=== PATIENT | male | born 1990 | race Caucasian/White ===

== ENCOUNTER 2016-11-30 09:11 | Day surgery (SDC) | payer OTHER ==
[2016-11-29 10:45] VITALS: BMI 32.3
[~2016-11-30 09:11] MED LIST: LACTATED RINGERS 1,000 ML IV SCH
[2016-11-30] MEDS ORDERED: LACTATED RINGERS 1,000 ML IV ONE (10:09)
[2016-11-30 10:14] VITALS: TEMP 98
[2016-11-30] MEDS ORDERED: LIDOCAINE 1% 20 ML VIAL (10MG/ML) FOR IV START INTRADERMA ONE (10:19)
[2016-11-30] MEDS ORDERED: PROPOFOL 10 MG/ML 20 ML VIAL IV ONE (10:41)
--- NOTE | 2016-11-30 10:57 | P.PCN ---
Date of Procedure: 11/30/16 Procedure(s) Performed: BRIEF HISTORY: Patient is a 26-year-old pleasant white male, scheduled for an elective colonoscopy as a part of evaluation of long-standing history of Crohn' s ileitis diagnosed in 2008. Patient is presently maintained on colazol 2 tablet daily and remains in clinical remission. He does complain of occasional diarrhea. No rectal bleeding. PROCEDURE PERFORMED: Colonoscopy with biopsy. PREOPERATIVE DIAGNOSIS: Long-standing history of Crohn's ileitis diagnosed in 2008. IV sedation per Anesthesia. PROCEDURE: After informed consent was obtained, the patient, was brought into the endoscopy unit. IV conscious sedation was administered by Anesthesia under continuous monitoring. Initially the Olympus CF-160 flexible video colonoscope was then inserted in the rectum, gradually advanced into the cecum without any difficulty. Careful examination was performed as the scope was gradually being withdrawn. Ileocecal valve and the appendiceal orifice were visualized and appeared normal. Prep was excellent. Terminal ileum was intubated and 20 cm of terminal ileum was visualized that showed erosions or ulcerations and cobblestoning of the mucosa in the ileum and multiple biopsies were done from this area. Mucosa of the cecum, ascending colon, transverse colon, descending colon, sigmoid colon, and rectum appeared normal. In the rectal sigmoid colon at 20 cm from the anal was there was an area where there was mild erythema with cobblestoning of the mucosa identified and this was biopsied. Retroflexion was performed in the rectum and no lesions were seen. The patient tolerated the procedure well. IMPRESSION: Multiple erosions, ulceration with friable mucosa in the terminal ileum consistent with active Crohn's ileitis . Small patchy area of the colon in the rectosigmoid area at 20 cm from the anal verge with mucosal friability and some cobblestoning of the mucosa noted status post biopsy. Rest of the colon appeared normal. RECOMMENDATIONS: Findings of this examination were discussed with the patient as well as his family. He was advised to follow with the biopsy results and he' ll be seen in the office in 2 weeks.
[2016-11-30 11:03] VITALS: RESP 16
[2016-11-30 12:10] VITALS: BP 120/76; PULSE 83
== END 2016-11-30 12:02 | disposition home or self-care (01) ==
LOC: ORWHC2ENDO 09:11
PROVIDERS: ATTEND Internal Medicine Gastroenterology
DX: K51.80 Other ulcerative colitis without complications (principal); K63.89 Other specified diseases of intestine; Z79.899 Other long term (current) drug therapy
CPT/HCPCS: 88305; 45380; J2704

== ENCOUNTER → 2016-12-17 | Outpatient (CLI) | payer OTHER ==
[~2016-12-17] MED LIST changes: -LACTATED RINGERS 1,000 ML IV SCH; +TUBERCULIN PPD (SKIN TEST) 5 UNIT/0.1 ML (MDV) VIAL INTRADERMA NR
[2016-12-17 11:37] LABS: CH 30.1; CHCM 34.6; HCT 43.6 % (39.0-53.0); HDW 2.85; HGB 14.4 gm/dL (13.0-17.5); MCH 28.8 pg (25.0-35.0); MCV 87.3 fL (80.0-100.0); Mean Platelet Volume 7.7; RDW 13.4 % (11.5-15.5); WBC 9.2 k/uL (3.8-10.6)
[2016-12-17 12:10] LABS: ALT 36 U/L (21-72); AST 21 U/L (17-59); Alkaline Phosphatase 64 U/L (38-126); Anion Gap 10 mmol/L; Blood Urea Nitrogen 9 mg/dL (9-20); C Reactive Protein 14.8 mg/L (<10.0); Calcium 9.8 mg/dL (8.4-10.2); Carbon Dioxide 27 mmol/L (22-30); Chloride 106 mmol/L (98-107); Glucose 89 mg/dL (74-99); Non-African American GFR(MDRD) >60 (>60 ml/min/1.73 sqM); Potassium 4.3 mmol/L (3.5-5.1); Sodium 143 mmol/L (137-145); Total Bilirubin 0.4 mg/dL (0.2-1.3); Total Protein 7.4 g/dL (6.3-8.2)
[2016-12-17 12:16] VITALS: BP 142/88; PULSE 73; RESP 16; TEMP 98.2
[2016-12-17 13:07] LABS: Vitamin B12 549 pg/mL (239-931)
[2016-12-17 13:35] LABS: Erythrocyte Sedimentation Rate 17 mm/hr (0-15)
[2016-12-17 14:09] LABS: Hepatitis B Core IgM Index 0.03
[2016-12-17 14:20] LABS: Hepatitis C Virus IgG Index 0.15
[2016-12-17 14:23] LABS: Hepatitis C Virus IgG Ab Negative (Negative)
== END ==
LOC: LABWHC1 11:14 → PROCWHC3 12:11
PROVIDERS: ATTEND Physician Assistant
DX: K50.80 Crohn's disease of both small and large intestine without complications (principal)
CPT/HCPCS: 36415; 80053; 80074; 82607; 82746; 85027; 85652; 86140; 86580

== ENCOUNTER → 2019-01-16 | Outpatient (CLI) | payer OTHER ==
[2019-01-16 10:45] LABS: HCT 42.7 % (39.0-53.0); MCH 29.4 pg (25.0-35.0); MCHC 32.8 g/dL (31.0-37.0); MCV 89.7 fL (80.0-100.0); Mean Platelet Volume 6.5; Platelet Count 283 k/uL (150-450); RBC 4.76 m/uL (4.30-5.90); RDW 12.6 % (11.5-15.5); WBC 6.8 k/uL (3.8-10.6)
[2019-01-16 16:44] LABS: Albumin 4.4 g/dL (3.80-4.90); Albumin/Globulin Ratio 1.91 (1.60-3.17); Anion Gap 7.6 mmol/L (4.00-12.00); Calcium 9.3 mg/dL (8.7-10.3); Carbon Dioxide 24.4 mmol/L (21.6-31.8); Globulin 2.3 g/dL (1.6-3.3); Potassium 4.5 mmol/L (3.5-5.5); Total Bilirubin 0.6 mg/dL (0.2-1.2); Total Protein 6.7 g/dL (6.2-8.2)
== END | disposition home or self-care (01) ==
LOC: LABWHC1 09:53
PROVIDERS: ATTEND Physician Assistant
DX: K50.80 Crohn's disease of both small and large intestine without complications (principal)
CPT/HCPCS: 36415; 80053; 82607; 85027

== ENCOUNTER 2019-02-20 10:09 | Day surgery (SDC) | payer OTHER ==
[2019-02-18 17:31] VITALS: BMI 32.3
[~2019-02-20 10:09] MED LIST changes: +LACTATED RINGERS 1,000 ML IV SCH; -TUBERCULIN PPD (SKIN TEST) 5 UNIT/0.1 ML (MDV) VIAL INTRADERMA NR
[2019-02-20 10:24] VITALS: TEMP 97.8
[2019-02-20] MEDS ORDERED: LIDOCAINE 1% 20 ML VIAL (10MG/ML) FOR IV START INTRADERMA ONE (10:27)
[2019-02-20] MEDS ORDERED: LACTATED RINGERS 1,000 ML IV ONE (10:27)
[2019-02-20] MEDS ORDERED: PROPOFOL 10 MG/ML 20 ML VIAL IV ONE (11:06)
--- NOTE | 2019-02-20 11:35 | P.PCN ---
Date of Procedure: 02/20/19 Procedure(s) Performed: BRIEF HISTORY: Patient is a 28-year-old pleasant diagnosed with Crohn's ileitis in 2008. Last colonoscopy in November 2016 showed active ileitis as well as some colitis in the rectosigmoid region. He has been on Humira since December 2016 intermittent into remission. He is scheduled for an elective colonoscopy as a part of surveillance of Crohn's ileocolitis. PROCEDURE PERFORMED: Colonoscopy with biopsy. PREOPERATIVE DIAGNOSIS: History Crohn's ileocolitis diagnosed in 2008. IV sedation per Anesthesia. PROCEDURE: After informed consent was obtained, the patient, was brought into the endoscopy unit. IV sedation was administered by Anesthesia under continuous monitoring. Digital rectal examination was normal. Initially the Olympus CF-160 flexible video colonoscope was then inserted in the rectum, gradually advanced into the cecum without any difficulty. Careful examination was performed as the scope was gradually being withdrawn. Ileocecal valve and the appendiceal orifice were visualized and appeared normal. Prep was excellent. Ileocecal valve was performed in the terminal ileum had scattered erosions and biopsies were done from this area. Mucosa of the cecum, ascending colon, transverse colon, descending colon, sigmoid colon, and rectum appeared normal. In the rectum; there were scattered pseudopolyps with few erosions identified which were biopsied. Retroflexion was performed in the rectum and no lesions were seen. The patient tolerated the procedure well. IMPRESSION: Deformed terminal ileum with scattered erosions status post biopsy Few scattered pseudopolyps noted in the rectal sigmoid colon with superficial erosions status post multiple biopsies Rest of the colon appeared normal RECOMMENDATIONS: Findings of this examination were discussed with the patient well as his family. He was advised to follow with the biopsy results. He can h ave a repeat colonoscopy every 2 years.
[2019-02-20 11:56] VITALS: BP 124/77; PULSE 74; RESP 18
== END 2019-02-20 12:05 | disposition home or self-care (01) ==
LOC: ORWHC2ENDO 10:09
PROVIDERS: ATTEND Internal Medicine Gastroenterology
DX: K50.80 Crohn's disease of both small and large intestine without complications (principal); Z79.899 Other long term (current) drug therapy
CPT/HCPCS: 88305; 45380; J2704

== ENCOUNTER → 2020-01-29 | Outpatient (CLI) | payer OTHER ==
[2020-01-29 11:31] LABS: Basophils % (A) 0 %; Eosinophils # (A) 0.1 k/uL (0-0.7); Eosinophils % (A) 1 %; HCT 37.4 % (39.0-53.0); HGB 12.2 gm/dL (13.0-17.5); Hypochromasia Slight; Lymphocytes # (A) 1.9 k/uL (1.0-4.8); Lymphocytes % (A) 20 %; MCH 28.4 pg (25.0-35.0); MCHC 32.6 g/dL (31.0-37.0); Mean Platelet Volume 6.8; Monocytes # (A) 0.5 k/uL (0-1.0); Monocytes % (A) 6 %; Neutrophils # (A) 6.4 k/uL (1.3-7.7); Neutrophils % (A) 69 %; Platelet Count 459 k/uL (150-450); RBC 4.29 m/uL (4.30-5.90); RDW 12.2 % (11.5-15.5); WBC 9.2 k/uL (3.8-10.6)
[2020-01-29 12:21] LABS: Erythrocyte Sedimentation Rate 82 mm/hr (0-15)
[2020-01-29 16:15] LABS: Albumin 4.1 g/dL (3.80-4.90); Albumin/Globulin Ratio 1.28 (1.60-3.17); Anion Gap 13.4 mmol/L (4.00-12.00); C Reactive Protein 9.4 mg/dL (0.0-0.8); Carbon Dioxide 26.6 mmol/L (21.6-31.8); Globulin 3.2 g/dL (1.6-3.3); Potassium 3.9 mmol/L (3.5-5.5); Total Bilirubin 0.4 mg/dL (0.3-1.2); Total Protein 7.3 g/dL (6.2-8.2)
== END | disposition home or self-care (01) ==
LOC: LABWHC1 10:50
PROVIDERS: ATTEND Internal Medicine Gastroenterology
DX: K50.90 Crohn's disease, unspecified, without complications (principal)
CPT/HCPCS: 36415; 80053; 85025; 85652; 86140

== ENCOUNTER → 2020-10-04 | Outpatient (CLI) | payer OTHER ==
[2020-10-04 09:17] LABS: Basophils % (A) 1 %; Eosinophils # (A) 0.1 k/uL (0-0.7); Eosinophils % (A) 1 %; HCT 41.1 % (39.0-53.0); HGB 13.9 gm/dL (13.0-17.5); Lymphocytes # (A) 1.6 k/uL (1.0-4.8); Lymphocytes % (A) 26 %; MCH 29.6 pg (25.0-35.0); MCHC 33.9 g/dL (31.0-37.0); MCV 87.5 fL (80.0-100.0); Monocytes # (A) 0.4 k/uL (0-1.0); Monocytes % (A) 6 %; Neutrophils # (A) 3.9 k/uL (1.3-7.7); Neutrophils % (A) 62 %; Platelet Count 299 k/uL (150-450); RDW 12.9 % (11.5-15.5); WBC 6.3 k/uL (3.8-10.6)
[2020-10-04 15:02] LABS: African American GFR (CKD) 130.5 (60.0-200.0); Albumin 4.2 g/dL (3.80-4.90); Albumin/Globulin Ratio 1.56 (1.60-3.17); Anion Gap 4.8 mmol/L (4.00-12.00); BUN/Creat Ratio 13.33 Ratio (12.00-20.00); Calcium 9.2 mg/dL (8.7-10.3); Carbon Dioxide 29.2 mmol/L (21.6-31.8); Globulin 2.7 g/dL (1.6-3.3); Non-African American GFR(CKD) 112.6 (60.0-200.0); Potassium 4.2 mmol/L (3.5-5.5); Total Bilirubin 0.5 mg/dL (0.2-1.2); Total Protein 6.9 g/dL (6.2-8.2)
== END | disposition home or self-care (01) ==
LOC: LABWHC1 08:17
PROVIDERS: ATTEND Internal Medicine Gastroenterology
DX: K50.90 Crohn's disease, unspecified, without complications (principal)
CPT/HCPCS: 36415; 80053; 85025

== ENCOUNTER 2021-01-27 07:59 | Day surgery (SDC) | payer OTHER ==
[2021-01-24 12:40] VITALS: BMI 32.3
[2021-01-27 09:00] VITALS: RESP 16; TEMP 97.8
[2021-01-27] MEDS ORDERED: LIDOCAINE 1% INJ 10MG/ML (20 ML MDV) ONE (10:02)
[2021-01-27] MEDS ORDERED: PROPOFOL 10 MG/ML 20 ML VIAL IV ONE (10:02)
--- NOTE | 2021-01-27 10:20 | P.PCN ---
Date of Procedure: 01/27/21 Procedure(s) Performed: BRIEF HISTORY: Patient is a 30-year-old pleasant white male scheduled for an elective colonoscopy as a part of long-standing history of Crohn's ileocolitis diagnosed in 2008. His been maintained on Humira since 2017. Last colonoscopy was 3 years ago and was noted to have deformed terminal ileum and scattered pseudopolyps in the rectosigmoid colon. He remains in clinical remission. PROCEDURE PERFORMED: Colonoscopy with biopsy. PREOPERATIVE DIAGNOSIS: History of Crohn's ileocolitis diagnosed in 2008. IV sedation per Anesthesia. PROCEDURE: After informed consent was obtained, the patient, was brought into the endoscopy unit. IV sedation was administered by Anesthesia under continuous monitoring. Digital rectal examination was normal. Initially the Olympus CF-160 flexible video colonoscope was then inserted in the rectum, gradually advanced into the cecum without any difficulty. Careful examination was performed as the scope was gradually being withdrawn. Ileocecal valve and the appendiceal orifice were visualized and appeared normal. Prep was excellent. The ileocecal valve appeared deformed. Terminal ileum was intubated and there was some mucosal scarring with erythema noted but no active erosions identified. Biopsies were done from the ileocecal valve. Mucosa of the cecum, ascending colon, transverse colon, descending colon, sigmoid colon appeared normal. In the rectosigmoid colon at 20 cm from the anal verge there was a cluster of pseudopolyps identified but no active disease seen. Biopsies were done from this area. The rectum appeared normal. Retroflexion was performed in the rectum and no lesions were seen. The patient tolerated the procedure well. IMPRESSION: Deformed terminal ileum with scattered erosions and narrowing of the ileocecal valve status post multiple biopsies Pseudopolyps in the rectosigmoid colon at 22 cm from the anal verge, status post multiple biopsies. No active Crohn's cecum Rest of the colon appeared normal. RECOMMENDATIONS: Findings of this examination were discussed with the patient as well as his family. He was advised to follow with the biopsy results. He will continue with Humira injections every 2 weeks. He'll have a repeat colonoscopy in 3-5 years.
[2021-01-27 10:35] VITALS: BP 123/76; PULSE 77
== END 2021-01-27 10:40 | disposition home or self-care (01) ==
LOC: ORWHC2ENDO 07:59
PROVIDERS: ATTEND Internal Medicine Gastroenterology
DX: Z12.11 Encounter for screening for malignant neoplasm of colon (principal); K50.80 Crohn's disease of both small and large intestine without complications; K52.9 Noninfective gastroenteritis and colitis, unspecified
CPT/HCPCS: 88305; 45380; J2001; J2704

== ENCOUNTER → 2023-02-01 | Day surgery (SDC) | payer OTHER ==
[2023-01-29 14:33] VITALS: BMI 32.3
[~2023-02-01] MED LIST changes: +LACTATED RINGERS 1,000 ML IV ONE; +LIDOCAINE 1% (10MG/ML) FOR IV START INTRADERMA PRN; +PROPOFOL 10 MG/ML 20 ML VIAL IV ONE
[2023-02-01 13:31] VITALS: TEMP 98
--- NOTE | 2023-02-01 15:31 | P.PCN ---
Date of Procedure: 02/01/23 Procedure(s) Performed: BRIEF HISTORY: Patient is a 32-year-old pleasant white male scheduled for an elective colonoscopy as a part of surveillance of long-standing history of procedure colitis diagnosed in 2008. He is maintained on Humira injections since 2016 and remains in clinical remission. Last colonoscopy in January 2021 revealed scattered pseudopolyps in the rectal sigmoid colon. PROCEDURE PERFORMED: Colonoscopy with random biopsies. PREOPERATIVE DIAGNOSIS: Long-standing history of Crohn's ileocolitis diagnosed in 2019. IV sedation per Anesthesia. PROCEDURE: After informed consent was obtained, the patient, was brought into the endoscopy unit. IV sedation was administered by Anesthesia under continuous monitoring. Digital rectal examination was normal. Initially the Olympus CF-160 flexible video colonoscope was then inserted in the rectum, gradually advanced into the cecum without any difficulty. Careful examination was performed as the scope was gradually being withdrawn. Ileocecal valve and the appendiceal orifice were visualized and appeared normal. Prep was excellent. the ileocecal valve appeared normal. The site multiple times I could not intubate the terminal ileum as it appeared narrowed. No mucosal abnormality seen. Mucosa of the cecum, ascending colon, transverse colon, descending colon, sigmoid colon, and rectum appeared normal. Scattered pseudopolyps noted at 20 cm from the anal verge which was biopsied. Also random biopsies were done and different areas of the colon. Retroflexion was performed in the rectum and no lesions were seen. The patient tolerated the procedure well. IMPRESSION: Normal-appearing colon from rectum to cecum with no active colitis or colorectal neoplasia Scattered pseudopolyps in the rectosigmoid colon at 20 cm status post biopsy and narrowing of the terminal ileum . RECOMMENDATIONS: Findings of this examination were discussed with the patientas well as his family. He was advised to follow with the biopsy results. Continue with Humira injections every 2 weeks. Recommend repeat colonoscopy in 2 years.].
[2023-02-01 16:29] VITALS: BP 124/78; PULSE 86; RESP 16
== END ==
LOC: ORWHC2ENDO 11:23
PROVIDERS: ATTEND Internal Medicine Gastroenterology
DX: K50.90 Crohn's disease, unspecified, without complications (principal); Z79.899 Other long term (current) drug therapy; Z98.890 Other specified postprocedural states
CPT/HCPCS: 45380; 88305; J2704

== ENCOUNTER → 2023-06-27 | Outpatient (CLI) | payer OTHER ==
[2023-06-27 16:42] LABS: ALT 27 U/L (10-49); AST 21 U/L (14-35); Albumin 4.3 d/dL (3.8-4.9); Albumin/Globulin Ratio 1.43 Ratio (1.60-3.17); Alkaline Phosphatase 66 U/L (41-126); Blood Urea Nitrogen 16.1 mg/dL (9.0-27.0); Calcium 9.2 mg/dL (8.7-10.3); Carbon Dioxide 24.5 mmol/L (21.6-31.8); Chloride 104 mmol/L (96-109); Glucose 86 mg/dL (70-110); Potassium 4.5 mmol/L (3.5-5.5); Sodium 140 mmol/L (135-145); Total Bilirubin 0.5 mg/dL (0.3-1.2); Total Protein 7.3 d/dL (6.2-8.2)
[2023-06-27 17:01] LABS: Basophils # (A) 0.04 X 10*3/uL (0.00-0.10); Basophils % (A) 0.6 %; Eosinophils # (A) 0.09 X 10*3/uL (0.04-0.35); Eosinophils % (A) 1.4 %; HCT 40.6 % (39.6-50.0); HGB 13.7 d/dL (13.0-17.0); Lymphocytes # (A) 1.79 X 10*3/uL (0.90-5.00); Lymphocytes % (A) 28.3 %; MCH 29.8 pg (27.0-32.0); MCHC 33.7 d/dL (32.0-37.0); MCV 88.3 FL (80.0-97.0); Mean Platelet Volume 10.4 FL (9.5-12.2); Monocytes # (A) 0.71 X 10*3/uL (0.20-1.00); Monocytes % (A) 11.2 %; NRBC Per 100 WBC 0 X 10*3/uL (0.00-0.01); Neutrophils # (A) 3.66 X 10*3/uL (1.80-7.70); Platelet Count 312 X 10*3/uL (140-440); RDW 12.4 % (11.5-14.5); WBC 6.32 X 10*3/uL (4.50-10.00)
== END | disposition home or self-care (01) ==
LOC: LABWHC1 07:55
PROVIDERS: ATTEND Internal Medicine Gastroenterology
DX: K50.90 Crohn's disease, unspecified, without complications (principal)
CPT/HCPCS: 36415; 80053; 85025

== ENCOUNTER 2023-09-21 07:40 | Inpatient (IN) | payer OTHER ==
[2023-09-21] MEDS ORDERED: SODIUM CHLORIDE 0.9% 1,000 ML IV ONE (08:03)
[2023-09-21 08:25] LABS: Basophils % (A) 0 %; Eosinophils % (A) 0 %; HCT 34.6 % (39.0-53.0); HGB 11.6 gm/dL (13.0-17.5); Lymphocytes # (A) 1.3 k/uL (1.0-4.8); Lymphocytes % (A) 7 %; MCH 28.6 pg (25.0-35.0); MCHC 33.7 g/dL (31.0-37.0); Mean Platelet Volume 7.6; Monocytes # (A) 1.1 k/uL (0-1.0); Monocytes % (A) 6 %; Neutrophils # (A) 15.9 k/uL (1.3-7.7); Neutrophils % (A) 85 %; Platelet Count 441 k/uL (150-450); RBC 4.07 m/uL (4.30-5.90); WBC 18.7 k/uL (3.8-10.6)
--- NOTE | 2023-09-21 08:25 | ED ---
General Adult HPI - General Chief complaint: Urogenital Stated complaint: Urogenital, Fever Time Seen by Provider: 09/21/23 07:44 Source: patient, RN notes reviewed, old records reviewed Mode of arrival: ambulatory Limitations: no limitations - History of Present Illness Initial comments: 33-year-old male presenting for evaluation of fever, flank pain over the past 3- 4 weeks. Patient was seen at urgent care and diagnosed with muscular skeletal back pain. He states that he's had low-grade fevers around 100 and right flank pain. He denies abdominal pain. He denies significant cough or URI symptoms. No one else at home is sick. He's had night sweats over this time. Patient has history of Crohn's disease and is on Humira. - Related Data Home Medications Medication Instructions Recorded Confirmed Adalimumab [Humira Pen] 40 mg SQ Q14D 02/18/19 02/01/23 Loratadine [Claritin] 10 mg PO DAILY 02/18/19 02/01/23 Allergies Allergy/AdvReac Type Severity Reaction Status Date / Time No Known Allergies Allergy Verified 09/21/23 07:44 Review of Systems ROS Statement: Those systems with pertinent positive or pertinent negative responses have been documented in the HPI. ROS Other: All systems not noted in ROS Statement are negative. Past Medical History Additional Past Medical History / Comment(s): HX OF CROHN'S. History of Any Multi-Drug Resistant Organisms: None Reported Additional Past Surgical History / Comment(s): COLONOSCOPIES, WISDOM TEETH EXTRACTION. Past Anesthesia/Blood Transfusion Reactions: Motion Sickness Past Psychological History: No Psychological Hx Reported Smoking Status: Never smoker Past Alcohol Use History: Occasional Past Drug Use History: None Reported - Past Family History Mother Family Medical History: No Reported History General Exam Limitations: no limitations General appearance: alert, in no apparent distress Head exam: Present: atraumatic, normocephalic Eye exam: Present: normal appearance, PERRL ENT exam: Present: normal exam Neck exam: Present: normal inspection. Absent: tenderness, meningismus Respiratory exam: Present: normal lung sounds bilaterally. Absent: respiratory distress, wheezes Cardiovascular Exam: Present: normal rhythm, tachycardia GI/Abdominal exam: Present: soft. Absent: distended, tenderness, guarding Extremities exam: Present: normal inspection, normal capillary refill Neurological exam: Present: alert, oriented X3, CN II-XII intact. Absent: motor sensory deficit Psychiatric exam: Present: normal affect, normal mood Skin exam: Present: diaphoretic Course Vital Signs 09/21/23 09/21/23 09/21/23 07:41 09:44 11:58 Temperature 99.5 F 98.8 F 100.9 F H Pulse Rate 117 H 94 116 H Respiratory 18 18 18 Rate Blood Pressure 152/90 139/82 152/83 O2 Sat by Pulse 96 96 97 Oximetry Medical Decision Making - Medical Decision Making Was pt. sent in by a medical professional or institution (, PA, TELEPHONE AD TAKER, urgent care, hospital, or residential...) When possible be specific @ -No Did you speak to anyone other than the patient for history (EMS, parent, family, police, friend...)? What history was obtained from this source @ -No Did you review nursing and triage notes (agree or disagree)? Why? @ -I reviewed and agree with nursing and triage notes Were old charts reviewed (outside hosp., previous admission, EMS record, old EKG, old radiological studies, urgent care reports/EKG's, residential records)? Report findings @ -No old charts were reviewed Differential Diagnosis (chest pain, altered mental status, abdominal pain women, abdominal pain men, vaginal bleeding, weakness, fever, dyspnea, syncope, headache, dizziness, GI bleed, back pain, seizure, CVA, palpatations, mental health, musculoskeletal)? @ -Differential Abdominal Pain Men: Appendicitis, cholecystitis, diverticulosis, ischemic bowel, pancreatitis, hepatitis, UTI, gastroenteritis, AAA, incarcerated hernia, bowel obstruction, constipation, inflammatory bowel, hepatitis, peptic ulcer disease, splenic infarction, perforated viscus, testicular torsion, this is not meant to be an all-inclusive list EKG interpreted by me (3pts min.). @ -As above X-rays interpreted by me (1pt min.). @ -None done CT interpreted by me (1pt min.). @ -CT the abdomen and pelvis without contrast negative for obstructing renal stone, patient has intra-abdominal mass concerning for neoplasm U/S interpreted by me (1pt. min.). @ -None done What testing was considered but not performed or refused? (CT, X-rays, U/S, labs)? Why? @ -None What meds were considered but not given or refused? Why? @ -None Did you discuss the management of the patient with other professionals (professionals i.e. , PA, TELEPHONE AD TAKER, lab, RT, psych nurse, social studies department chair, lead sales consultant, teacher, public information officer, director of casework)? Give summary @ sheet, will admit Was smoking cessation discussed for >3mins.? @ -No Was critical care preformed (if so, how long)? @ -No Were there social determinants of health that impacted care today? How? (Homelessness, low income, unemployed, alcoholism, drug addiction, transportation, low edu. Level, literacy, decrease access to med. care, skilled nursing, rehab)? @ -No Was there de-escalation of care discussed even if they declined (Discuss DNR or withdrawal of care, Hospice)? DNR status @ -No What co-morbidities impacted this encounter? (DM, HTN, Smoking, COPD, CAD, Cancer, CVA, ARF, Chemo, Hep., AIDS, mental health diagnosis, sleep apnea, morbid obesity)? @ -None Was patient admitted / discharged? Hospital course, mention meds given and route, prescriptions, significant lab abnormalities, going to OR and other pertinent info. @ -33-year-old male who presents for evaluation of flank pain, fever per the past 3 weeks. No anterior abdominal pain or tenderness. He is tachycardic with low-grade fever in the emergency department. Urinalysis is hemorrhagic with ra re bacteria. Urine Cultures obtained as well as blood cultures.. Patient started on antibiotics. He has laboratory denies including leukocytosis and a KI with elevated BUN and creatinine. He has CT showing intra-abdominal mass. He will be admitted with consultation to oncology. He is given IV fluids for a caring and antibiotics for urinary tract infection. Undiagnosed new problem with uncertain prognosis? @ -No Drug Therapy requiring intensive monitoring for toxicity (Heparin, Nitro, Insulin, Cardizem)? @ -No Were any procedures done? @ -No Diagnosis/symptom? @ -Fever, abdominal mass, SHELIA Acute, or Chronic, or Acute on Chronic? @ -[Acute Uncomplicated (without systemic symptoms) or Complicated (systemic symptoms)? @Complicated Side effects of treatment? @ -No Exacerbation, Progression, or Severe Exacerbation? @ -No Poses a threat to life or bodily function? How? (Chest pain, [place], PR, pneumonia, PE, COPD, DKA, ARF, appy, cholecystitis, CVA, Diverticulitis, Homicidal, Suicidal, threat to staff... and all critical care pts) @ -[Moderate risk, undifferentiated abdominal mass - Lab Data Result diagrams: 09/21/23 08:04 09/21/23 08:04 Lab Results 09/21/23 09/21/23 09/21/23 Range/Units 08:04 08:04 08:04 WBC 18.7 H (3.8-10.6) k/uL RBC 4.07 L (4.30-5.90) m/uL Hgb 11.6 L (13.0-17.5) gm/dL Hct 34.6 L (39.0-53.0) % MCV 85.0 (80.0-100.0) fL MCH 28.6 (25.0-35.0) pg MCHC 33.7 (31.0-37.0) g/dL RDW 12.0 (11.5-15.5) % Plt Count 441 (150-450) k/uL MPV 7.6 Neutrophils % 85 % Lymphocytes % 7 % Monocytes % 6 % Eosinophils % 0 % Basophils % 0 % Neutrophils # 15.9 H (1.3-7.7) k/uL Lymphocytes # 1.3 (1.0-4.8) k/uL Monocytes # 1.1 H (0-1.0) k/uL Eosinophils # 0.0 (0-0.7) k/uL Basophils # 0.0 (0-0.2) k/uL Sodium 135 L (137-145) mmol/L Potassium 3.0 L (3.5-5.1) mmol/L Chloride 95 L (98-107) mmol/L Carbon Dioxide 25 (22-30) mmol/L Anion Gap 15 mmol/L BUN 26 H (9-20) mg/dL Creatinine 2.39 H (0.66-1.25) mg/dL Est GFR (CKD-EPI)AfAm 39 (>60 ml/min/1.73 sqM) Est GFR (CKD-EPI)NonAf 34 (>60 ml/min/1.73 sqM) Glucose 105 H (74-99) mg/dL Plasma Lactic Acid Khanh (0.7-2.0) mmol/L Calcium 8.7 (8.4-10.2) mg/dL Magnesium 2.1 (1.6-2.3) mg/dL Total Bilirubin 0.8 (0.2-1.3) mg/dL AST 35 (17-59) U/L ALT 42 (4-49) U/L Alkaline Phosphatase 61 (38-126) U/L Total Protein 7.2 (6.3-8.2) g/dL Albumin 3.4 L (3.5-5.0) g/dL Urine Color Light Red Urine Appearance Cloudy (Clear) Urine pH 5.5 (5.0-8.0) Ur Specific [place] 1.012 (1.001-1.035) Urine Protein 2+ H (Negative) Urine Glucose (UA) Negative (Negative) Urine Ketones Negative (Negative) Urine Blood Large H (Negative) Urine Nitrite Negative (Negative) Urine Bilirubin Negative (Negative) Urine Urobilinogen <2.0 (<2.0) mg/dL Ur Leukocyte Esterase Trace H (Negative) Urine RBC >182 H (0-5) /hpf Urine WBC 23 H (0-5) /hpf Urine WBC Clumps Few H (None) /hpf Ur Squamous Epith Cells <1 (0-4) /hpf Amorphous Sediment Few H (None) /hpf Urine Bacteria Few H (None) /hpf Hyaline Casts 6 H (0-2) /lpf Urine Mucus Rare H (None) /hpf Influenza Type A (PCR) (Not Detectd) Influenza Type B (PCR) (Not Detectd) RSV (PCR) (Not Detectd) SARS-CoV-2 (PCR) (Not Detectd) 09/21/23 09/21/23 Range/Units 08:04 08:04 WBC (3.8-10.6) k/uL RBC (4.30-5.90) m/uL Hgb (13.0-17.5) gm/dL Hct (39.0-53.0) % MCV (80.0-100.0) fL MCH (25.0-35.0) pg MCHC (31.0-37.0) g/dL RDW (11.5-15.5) % Plt Count (150-450) k/uL MPV Neutrophils % % Lymphocytes % % Monocytes % % Eosinophils % % Basophils % % Neutrophils # (1.3-7.7) k/uL Lymphocytes # (1.0-4.8) k/uL Monocytes # (0-1.0) k/uL Eosinophils # (0-0.7) k/uL Basophils # (0-0.2) k/uL Sodium (137-145) mmol/L Potassium (3.5-5.1) mmol/L Chloride (98-107) mmol/L Carbon Dioxide (22-30) mmol/L Anion Gap mmol/L BUN (9-20) mg/dL Creatinine (0.66-1.25) mg/dL Est GFR (CKD-EPI)AfAm (>60 ml/min/1.73 sqM) Est GFR (CKD-EPI)NonAf (>60 ml/min/1.73 sqM) Glucose (74-99) mg/dL Plasma Lactic Acid Khanh 0.9 (0.7-2.0) mmol/L Calcium (8.4-10.2) mg/dL Magnesium (1.6-2.3) mg/dL Total Bilirubin (0.2-1.3) mg/dL AST (17-59) U/L ALT (4-49) U/L Alkaline Phosphatase (38-126) U/L Total Protein (6.3-8.2) g/dL Albumin (3.5-5.0) g/dL Urine Color Urine Appearance (Clear) Urine pH (5.0-8.0) Ur Specific [place] (1.001-1.035) Urine Protein (Negative) Urine Glucose (UA) (Negative) Urine Ketones (Negative) Urine Blood (Negative) Urine Nitrite (Negative) Urine Bilirubin (Negative) Urine Urobilinogen (<2.0) mg/dL Ur Leukocyte Esterase (Negative) Urine RBC (0-5) /hpf Urine WBC (0-5) /hpf Urine WBC Clumps (None) /hpf Ur Squamous Epith Cells (0-4) /hpf Amorphous Sediment (None) /hpf Urine Bacteria (None) /hpf Hyaline Casts (0-2) /lpf Urine Mucus (None) /hpf Influenza Type A (PCR) Not Detected (Not Detectd) Influenza Type B (PCR) Not Detected (Not Detectd) RSV (PCR) Not Detected (Not Detectd) SARS-CoV-2 (PCR) Not Detected (Not Detectd) Disposition Clinical Impression: UTI (urinary tract infection), Abdominal mass, SHELIA (acute kidney injury) Disposition: ADMITTED IP TO THIS HOSP Condition: Stable Is patient prescribed a controlled substance at d/c from ED?: No Referrals: None,Stated [Primary Care Provider] - 1-2 days Time of Disposition: 12:54
[2023-09-21 08:36] LABS: ALT 42 U/L (4-49); AST 35 U/L (17-59); African American GFR (CKD) 39 (>60 ml/min/1.73 sqM); Albumin 3.4 g/dL (3.5-5.0); Alkaline Phosphatase 61 U/L (38-126); Anion Gap 15 mmol/L; Blood Urea Nitrogen 26 mg/dL (9-20); Calcium 8.7 mg/dL (8.4-10.2); Carbon Dioxide 25 mmol/L (22-30); Chloride 95 mmol/L (98-107); Glucose 105 mg/dL (74-99); Magnesium 2.1 mg/dL (1.6-2.3); Non-African American GFR(CKD) 34 (>60 ml/min/1.73 sqM); Sodium 135 mmol/L (137-145); Total Bilirubin 0.8 mg/dL (0.2-1.3); Total Protein 7.2 g/dL (6.3-8.2)
[2023-09-21 08:43] LABS: Amorphous Sediment,Urine Few /hpf; Appearance,Urine Cloudy (Clear); Bacteria,Urine Few /hpf; Bilirubin,Urine Negative (Negative); Blood,Urine Large (Negative); Color,Urine Light Red; Glucose,Urine (UA) Negative (Negative); Hyaline Casts,Urine 6 /lpf (0-2); Ketones,Urine Negative (Negative); Leukocyte Esterase,Urine Trace (Negative); Mucus,Urine Rare /hpf; Nitrite,Urine Negative (Negative); PH, Urine 5.5 (5.0-8.0); Protein,Urine 2+ (Negative); RBC,Urine >182 /hpf (0-5); Specific Gravity,Urine 1.012 (1.001-1.035); Squamous Epithelial Cell,Urine <1 /hpf (0-4); Urobilinogen,Urine <2.0 mg/dL (<2.0); WBC,Urine 23 /hpf (0-5)
--- NOTE | 2023-09-21 09:27 | XR ---
EXAMINATION TYPE: XR chest 2V DATE OF EXAM: 09/21/2023 8:29 AM CLINICAL INDICATION:Male, 33 years old with history of fever; [facility] COMPARISON: 10/14/2014 TECHNIQUE: XR chest 2V. Frontal PA and lateral views of the chest. FINDINGS: Lines/Tubes: None. Heart/mediastinum: Heart size is normal. Mediastinal silhouette is unremarkable. Pulmonary vascularity: Not increased, Lungs/Pleura: There is no evidence of pleural effusion, focal consolidation, or pneumothorax. There are probably small calcified granulomas in the lung bases. Musculoskeletal: No acute osseous abnormality demonstrated in the limits of the exam. Other findings: None. IMPRESSION: No acute cardiopulmonary abnormality.
[2023-09-21] MEDS: SODIUM CHLORIDE 0.9% 1,000 ML IV SCH ×3 (09:38→23:36)
[2023-09-21] MEDS ORDERED: POTASSIUM CHLORIDE ER 20 MEQ TAB.ER PO STA (11:26)
--- NOTE | 2023-09-21 11:38 | CT ---
EXAMINATION TYPE: CT abdomen pelvis wo con CT DLP: 910 mGycm, Automated exposure control for dose reduction was used. DATE OF EXAM: 09/21/2023 9:13 AM COMPARISON: CLINICAL INDICATION:Male, 33 years old with history of flank pain; [place] x 1 month; Flank pain TECHNIQUE: Axial CT of the abdomen and pelvis. Sagittal and coronal reformats were created on a [employer] workstation. Contrast used: mL of , (none if empty) Oral contrast used: without Oral Contrast (none if empty) FINDINGS: Exam is limited without contrast. LOWER CHEST: Unremarkable ABDOMEN LIVER: Diffusely hypoattenuating parenchyma consistent with steatosis. GALLBLADDER AND BILE DUCTS: Gallbladder appears small or contracted with hyperdense bile. PANCREAS: Unremarkable. SPLEEN: Unremarkable. ADRENAL GLANDS: Unremarkable. KIDNEYS AND URETERS: Both renal pelves are mildly prominent without dilated ureters or calculi seen. There are pelvic phleboliths. PELVIS BLADDER: Unremarkable REPRODUCTIVE: Unremarkable prostate. ABDOMEN & PELVIS STOMACH, BOWEL, PERITONEUM/RETROPERITONEUM: Stomach and proximal small bowel are nondistended, no jody dence of obstruction. Abnormal appearance in the region of a distal small bowel loop, appears tethere d and distorted where bowel courses in close proximity to a large lobulated mass with hazy margins lo cated within the central mesentery of the lower abdomen/upper pelvis. This measures as large as 7.4 x 8.4 cm axially and extends 9.6 cm craniocaudally. This is mostly solid appearing, however contains s everal small foci of internal gas throughout. There is the suggestion of a point of fistulization wit h the bowel along its left superior aspect best seen on coronal series 202 images 38-41. A small port ion of the sigmoid colon appears displaced or tethered medially towards this mass, without clear evid ence of fistulous communication although this is not entirely certain. There is stranding and hazines s of the mesenteric fat about the mass, and a separate appearing soft tissue density superiorly, terrance uring 2.1 x 1.2 cm series 201 image 51. Nodule abutting its posterior superior aspect is 1.8 x 1.6 cm image 58. Additional small lymph nodes/nodules are seen along its anterior aspect. No free fluid in the abdomen or pneumoperitoneum. Small amount of fluid is seen within the pelvis. VASCULATURE: Unremarkable unenhanced appearance. No AAA. LYMPH NODES: No gross evidence of more distant adenopathy. SOFT TISSUE/ABDOMINAL WALL: Small fat-containing inguinal hernias. Tiny fat-containing umbilical duran ia. MUSCULOSKELETAL: No acute bony abnormality or lytic/blastic lesion. The lowest rib-bearing vertebra a ssigned T12, there are 5 lumbar vertebrae vertebral bodies and L5 is mostly sacralized on the right. IMPRESSION: 1. Relatively large mesenteric mass in the lower abdomen/upper pelvis measuring up to 9.6 cm, with s everal surrounding nodular densities suggesting metastases and/or reactive nodes. Main differential d iagnoses include lymphoma, metastatic deposit, mesenteric carcinoid, desmoid tumor. Other possibiliti es would include benign mesenchymal tumors, mesenteric panniculitis, carcinomatosis, inflammatory pro cesses (such as TB and atypical mycobacterial infection), GI stromal tumors, small round cell tumors. 2. The mass appears predominantly solid, however with several small foci of internal gas. The mass i nvolves a distal small bowel loop, and there may be fistulization with this.
[2023-09-21] MEDS ORDERED: ACETAMINOPHEN TAB 500 MG TAB PO STA (12:11)
[2023-09-21] MEDS ORDERED: HYDROmorphone 0.5 MG/0.5 ML SYRINGE IVP PRN (12:47)
[2023-09-21] MEDS ORDERED: ACETAMINOPHEN TAB 325 MG TAB PO PRN (12:47)
[2023-09-21] MEDS ORDERED: NALOXONE 0.4 MG/ML 1 ML VIAL IV PRN (12:47)
--- NOTE | 2023-09-21 14:22 | P.HPIM ---
History of Present Illness This is a pleasant 33 years old male with past medical history of Crohn's disease on Humira and he follows up with Dr. Finch from GI but no PCP. Presents with urinary symptoms and fatigue and decreased appetite over the last 3-4 weeks. His complaining of from dark and blood in the urine. But no dysuria or urgency. No suprapubic or flank tenderness area No abdominal pain. He vomited 2 days ago, no diarrhea. He has low appetite. No chest pain or dyspnea or coughing. No headache dizziness weakness or numbness Smoking alcohol or illicit drugs. He is hemodynamically stable but he has a fever of 100.9, the tachycardia, blood pressure 152/83. Has leukocytosis of 18,000, hemoglobin 11.6, sodium 135, potassium 3.0. Creatinine Located above baseline at 2.39. 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 The mass involved distal small bowel Patient was started on normal saline with 30 mL/h and ceftriaxone 2 g. Review of Systems Review of systems CONSTITUTIONAL: No fever, no malaise, no fatigue. HEENT: No recent visual problems or hearing problems. Denied any sore throat. CARDIOVASCULAR: No orthopnea, PND, no palpitations, no syncope. PULMONARY: No shortness of breath, no cough, no hemoptysis. GASTROINTESTINAL: No diarrhea, no nausea, no vomiting, no abdominal pain. Normoactive bowel sounds. NEUROLOGICAL: No headaches, no weakness, no numbness. HEMATOLOGICAL: Denies any bleeding or petechiae. GENITOURINARY: Denies any burning micturition, frequency, or urgency. MUSCULOSKELETAL/RHEUMATOLOGICAL: Denies any joint pain, swelling, or any muscle pain. ENDOCRINE: Denies any polyuria or polydipsia. Past Medical History Additional Past Medical History / Comment(s): HX OF CROHN'S. History of Any Multi-Drug Resistant Organisms: None Reported Additional Past Surgical History / Comment(s): COLONOSCOPIES, WISDOM TEETH EXTRACTION. Past Anesthesia/Blood Transfusion Reactions: Motion Sickness Past Psychological History: No Psychological Hx Reported Smoking Status: Never smoker Past Alcohol Use History: Occasional Past Drug Use History: None Reported - Past Family History Mother Family Medical History: No Reported History Medications and Allergies Home Medications Medication Instructions Recorded Confirmed Type Adalimumab [Humira Pen] 40 mg SQ Q14D 02/18/19 09/21/23 History Loratadine [Claritin] 10 mg PO DAILY PRN 02/18/19 09/21/23 History Dicyclomine [Bentyl] 10 mg PO TID PRN 09/21/23 09/21/23 History prednisoLONE ACETATE 1% OPHTH 1 drops RIGHT EYE QID 09/21/23 09/21/23 History [Pred Forte 1%] Allergies Allergy/AdvReac Type Severity Reaction Status Date / Time No Known Allergies Allergy Verified 09/21/23 13:36 Physical Exam Vitals: Vital Signs Temp Pulse Resp BP Pulse Ox 09/21/23 11:58 100.9 F H 116 H 18 152/83 97 09/21/23 09:44 98.8 F 94 18 139/82 96 09/21/23 07:41 99.5 F 117 H 18 152/90 96 Intake and Output 09/20/23 09/21/23 09/21/23 22:59 06:59 14:59 Other: Weight 111.13 kg GENERAL: The patient is alert and oriented x3, not in any acute distress. obese. HEENT: Pupils are round and equally reacting to light. EOMI. No scleral icterus. No conjunctival pallor. Normocephalic, atraumatic. No pharyngeal erythema. No thyromegaly. CARDIOVASCULAR: S1 and S2 present. No murmurs, rubs, or gallops. PULMONARY: Chest is clear to auscultation, no wheezing , no crackles. ABDOMEN: Soft, nontender, nondistended, normoactive bowel sounds. No palpable organomegaly. MUSCULOSKELETAL: No joint swelling or deformity. EXTREMITIES: No cyanosis, clubbing, or pedal edema. NEUROLOGICAL: Gross neurological examination did not reveal any focal deficits. SKIN: No rashes. no petechiae. Results CBC & Chem 7: 09/21/23 08:04 09/21/23 08:04 Labs: Abnormal Lab Results - Last 24 Hours (Table) 09/21/23 09/21/23 09/21/23 Range/Units 08:04 08:04 08:04 WBC 18.7 H (3.8-10.6) k/uL RBC 4.07 L (4.30-5.90) m/uL Hgb 11.6 L (13.0-17.5) gm/dL Hct 34.6 L (39.0-53.0) % Neutrophils # 15.9 H (1.3-7.7) k/uL Monocytes # 1.1 H (0-1.0) k/uL Sodium 135 L (137-145) mmol/L Potassium 3.0 L (3.5-5.1) mmol/L Chloride 95 L (98-107) mmol/L BUN 26 H (9-20) mg/dL Creatinine 2.39 H (0.66-1.25) mg/dL Glucose 105 H (74-99) mg/dL Albumin 3.4 L (3.5-5.0) g/dL Urine Protein 2+ H (Negative) Urine Blood Large H (Negative) Ur Leukocyte Esterase Trace H (Negative) Urine RBC >182 H (0-5) /hpf Urine WBC 23 H (0-5) /hpf Urine WBC Clumps Few H (None) /hpf Amorphous Sediment Few H (None) /hpf Urine Bacteria Few H (None) /hpf Hyaline Casts 6 H (0-2) /lpf Urine Mucus Rare H (None) /hpf Assessment and Plan Assessment: Abdominal mass, rule out malignancy versus lymphoma versus benign tumors versus others Acute kidney injury Acute sepsis with fever and leukocytosis most likely secondary to UTI Acute urinary tract infection Anemia Generalized weakness and fatigue History of Crohn's disease, not an active issue Obesity with BMI of 32.3. Plan: Continue with IV hydration and monitor kidney function if no improvement then may consider nephrology consult Continue with ceftriaxone follow-up urine and blood culture Currently urologist has been consulted Several consultants on the case, e marketing specialist/oncologist , [facility] and [facility] were [facility].. Continue same treatment. Continue with symptomatic treatment. Resume home medication. Monitor labs and vitals. DVT and GI prophylaxis. Further recommendations as per clinical course of the patient DVT prophylaxis: Subcutaneous heparin GI Prophylaxis: Pepcid Prognosis is guarded
[2023-09-21] MEDS: HEPARIN SODIUM,PORCINE 5,000 UNIT/ML 1 ML VIAL SQ SCH (20:57)
[2023-09-21] MEDS: FAMOTIDINE 20 MG/2 ML VIAL IV SCH (20:58)
[2023-09-21] MEDS: prednisoLONE ACETATE 1% OPHTH DROPS 5 ML BTL RIGHT EYE SCH (21:08)
[2023-09-22 05:01] LABS: African American GFR (CKD) 39 (>60 ml/min/1.73 sqM); Anion Gap 20 mmol/L; Blood Urea Nitrogen 25 mg/dL (9-20); Calcium 8.1 mg/dL (8.4-10.2); Carbon Dioxide 16 mmol/L (22-30); Chloride 101 mmol/L (98-107); Glucose 79 mg/dL (74-99); Non-African American GFR(CKD) 34 (>60 ml/min/1.73 sqM); Potassium 3.3 mmol/L (3.5-5.1); Sodium 137 mmol/L (137-145)
[2023-09-22 05:13] LABS: Basophils % (A) 0 %; Eosinophils % (A) 0 %; HCT 33.7 % (39.0-53.0); HGB 11.1 gm/dL (13.0-17.5); Hypochromasia Slight; Lymphocytes # (A) 1.5 k/uL (1.0-4.8); Lymphocytes % (A) 9 %; MCH 29.9 pg (25.0-35.0); MCHC 33.1 g/dL (31.0-37.0); Mean Platelet Volume 7.6; Monocytes % (A) 6 %; Neutrophils # (A) 13.9 k/uL (1.3-7.7); Neutrophils % (A) 82 %; Platelet Count 380 k/uL (150-450); RBC 3.73 m/uL (4.30-5.90); RDW 12.2 % (11.5-15.5); WBC 16.8 k/uL (3.8-10.6)
[2023-09-22 05:16] LABS: MCV 90.3 fL (80.0-100.0)
[2023-09-22] MEDS: FAMOTIDINE 20 MG/2 ML VIAL IV SCH (08:19)
[2023-09-22] MEDS: HEPARIN SODIUM,PORCINE 5,000 UNIT/ML 1 ML VIAL SQ SCH ×2 (08:19→19:46)
[2023-09-22] MEDS: prednisoLONE ACETATE 1% OPHTH DROPS 5 ML BTL RIGHT EYE SCH ×4 (10:11→19:45)
[2023-09-22] MEDS ORDERED: POTASSIUM CHLORIDE ER 20 MEQ TAB.ER PO STA (11:40)
--- NOTE | 2023-09-22 11:44 | P.NPCON ---
History of Present Illness - Reason for Consult acute renal failure - History of Present Illness Reason for consultation: Acute kidney injury History of present illness: Patient is a 33-year-old male seen in renal consultation for acute kidney injury. Patient's baseline creatinine is near 1 from June 2023. Creatinine this admission was 2.39 and is stable at 2.41 today. Patient came to the hospital due to flank pain and poor intake. He's also noticed dark urine since the scaling. He denies history of kidney stones. Denies personal or family history of kidney disease. He denies use of nonsteroidals. No history of diabetes. No history of cardiac disease. He does have history of Crohn's disease. No evidence of hypotension. No edema. Oral intake has been decreased since the scaling. He's been having intermittent vomiting and diarrhea as well. No vomiting since in the hospital. Patient states the urine is also more clear now. He was seen in the urgent care and was diagnosed with musculoskeletal pain recently. Vital signs are stable. General: No acute distress. HEENT: Head exam is unremarkable. LUNGS: No audible rhonchi wheezes. HEART: Rate and Rhythm are regular. ABDOMEN: Nontender. EXTREMITITES: No edema. Past Medical History Additional Past Medical History / Comment(s): HX OF CROHN'S. History of Any Multi-Drug Resistant Organisms: None Reported Additional Past Surgical History / Comment(s): COLONOSCOPIES, WISDOM TEETH EXTRACTION. Past Anesthesia/Blood Transfusion Reactions: Motion Sickness Past Psychological History: No Psychological Hx Reported Smoking Status: Never smoker Past Alcohol Use History: Occasional Past Drug Use History: None Reported - Past Family History Mother Family Medical History: No Reported History Medications and Allergies Home Medications Medication Instructions Recorded Confirmed Type Adalimumab [Humira Pen] 40 mg SQ Q14D 02/18/19 09/21/23 History Loratadine [Claritin] 10 mg PO DAILY PRN 02/18/19 09/21/23 History Dicyclomine [Bentyl] 10 mg PO TID PRN 09/21/23 09/21/23 History prednisoLONE ACETATE 1% OPHTH 1 drops RIGHT EYE QID 09/21/23 09/21/23 History [Pred Forte 1%] Allergies Allergy/AdvReac Type Severity Reaction Status Date / Time No Known Allergies Allergy Verified 09/21/23 13:36 Physical Exam Vitals: Vital Signs Temp Pulse Pulse Resp BP BP Pulse Ox 12/31/23 08:14 98.2 F 99 20 143/81 98 09/22/23 07:30 99 20 09/22/23 04:30 108 H 09/22/23 03:50 99.2 F 108 H 18 155/73 98 09/22/23 03:05 98.1 F 115 H 18 139/88 95 09/22/23 00:00 98.3 F 107 H 18 137/79 95 09/21/23 19:47 119 H 18 122/68 97 09/21/23 16:44 98.6 F 115 H 20 120/83 97 09/21/23 11:58 100.9 F H 116 H 18 152/83 97 Intake and Output 09/21/23 09/22/23 09/22/23 22:59 06:59 14:59 Other: # Voids 1 Weight 111.13 kg Results - Lab Results Most recent lab results Calcium 8.1 mg/dL (8.4-10.2) L 09/22/23 03:55 Magnesium 2.1 mg/dL (1.6-2.3) 09/21/23 08:04 09/22/23 03:55 09/22/23 03:55 Assessment and Plan Plan: Assessment: 1. Acute kidney injury secondary to ATN secondary to hypovolemia from vomiting and diarrhea. Creatinine stable at 2.4. Baseline creatinine near 1. No hydron ephrosis noted on CAT scan. UA for 2+ protein and large blood. Also white cells. 2. Hypokalemia from poor intake. Magnesium normal on admission. 3. Metabolic acidosis secondary to acute kidney injury and IV fluids. 4. Crohn's disease. 5. Large mesenteric mass. Surgery and oncology consulted. Plan: Change IV fluids to bicarb drip. Replace potassium. Repeat UA. Check renal ultrasound. We will order serologies if no improvement in renal function tomorrow. Check bladder scan to rule out urinary retention. Avoid nephrotoxins. F/u urine culture. Continue to monitor renal function and urine output. Thank you for the consultation. I will continue to follow the patient with you during his hospital stay.
[2023-09-22] MEDS: DEXTROSE 5% IN WATER 1,000 ML with SODIUM BICARB (1 MEQ/ML) 150 ML IV SCH (12:44)
--- NOTE | 2023-09-22 14:01 | US ---
EXAMINATION TYPE: US kidneys/renal and bladder DATE OF EXAM: 09/22/2023 COMPARISON: 09/21/2023 CLINICAL INDICATION: Male, 33 years old with history of raven; EXAM MEASUREMENTS: Right Kidney: 14.5 x 6.0 x 5.9 cm Left Kidney: 13.9 x 6.4 x 6.0 cm Right Kidney: enlarged, no evidence of hydronephrosis Left Kidney: enlarged, no evidence of hydronephrosis Bladder: appears wnl Bilateral Jets seen: no There is no evidence for hydronephrosis at this point in time. No nephrolithiasis is seen. No zeyad s are identified. The urinary bladder is anechoic. Bilateral ureteral jets are seen. IMPRESSION: No evidence for acute process.
--- NOTE | 2023-09-22 14:21 | P.GSCN ---
History of Present Illness Consult date: 09/22/23 Reason for Consult: Abdominal mass History of present illness: 33-year-old male presents to the ER with complaints of flank pain and fever. Th e patient states he has had fevers around 100. He notices urine was dark in color. He thought he may be dehydrated and came to the hospital for that reason. He has had some night sweats. Patient with history of Crohn's disease. On Humira. Patient had a CAT scan showing a mesenteric mass. There are a few small foci of air within the mass. There is a loop of small bowel adjacent to this area and fistula has not been excluded. This mass measures about 8 x 10 cm. patient denies pain at this time. Says he is tolerating his regular diet without difficulties. Review of Systems The patient denies any acute changes in vision or hearing, no dysphagia or odynophagia, no chest pain or shortness of breath, no dysuria or hematuria, no headache, no runny nose, no rectal bleeding or melena, no unexplained weight loss Past Medical History Additional Past Medical History / Comment(s): HX OF CROHN'S. History of Any Multi-Drug Resistant Organisms: None Reported Additional Past Surgical History / Comment(s): COLONOSCOPIES, WISDOM TEETH EXTRACTION. Past Anesthesia/Blood Transfusion Reactions: Motion Sickness Past Psychological History: No Psychological Hx Reported Smoking Status: Never smoker Past Alcohol Use History: Occasional Past Drug Use History: None Reported - Past Family History Mother Family Medical History: No Reported History Medications and Allergies Home Medications Medication Instructions Recorded Confirmed Type Adalimumab [Humira Pen] 40 mg SQ Q14D 02/18/19 09/21/23 History Loratadine [Claritin] 10 mg PO DAILY PRN 02/18/19 09/21/23 History Dicyclomine [Bentyl] 10 mg PO TID PRN 09/21/23 09/21/23 History prednisoLONE ACETATE 1% OPHTH 1 drops RIGHT EYE QID 09/21/23 09/21/23 History [Pred Forte 1%] Allergies Allergy/AdvReac Type Severity Reaction Status Date / Time No Known Allergies Allergy Verified 09/21/23 13:36 Surgical - Exam Vital Signs Temp Pulse Resp BP Pulse Ox 99.5 F 117 H 18 152/90 96 09/21/23 07:41 09/21/23 07:41 09/21/23 07:41 09/21/23 07:41 09/21/23 07:41 Physical exam: General: Well-developed, well-nourished HEENT: Normocephalic, sclerae nonicteric Abdomen: Mild right-sided tenderness, nondistended Extremities: No edema Neuro: Alert and oriented Results - Labs 09/22/23 03:55 09/22/23 03:55 Abnormal Lab Results - Last 24 Hours (Table) 09/22/23 09/22/23 Range/Units 03:55 03:55 WBC 16.8 H (3.8-10.6) k/uL RBC 3.73 L (4.30-5.90) m/uL Hgb 11.1 L (13.0-17.5) gm/dL Hct 33.7 L (39.0-53.0) % Neutrophils # 13.9 H (1.3-7.7) k/uL Potassium 3.3 L (3.5-5.1) mmol/L Carbon Dioxide 16 L (22-30) mmol/L BUN 25 H (9-20) mg/dL Creatinine 2.41 H (0.66-1.25) mg/dL Calcium 8.1 L (8.4-10.2) mg/dL Microbiology - Last 24 Hours (Table) 09/21/23 08:04 Urine Culture - Final Urine,Voided Diabetes panel 09/22/23 Range/Units 03:55 Sodium 137 (137-145) mmol/L Potassium 3.3 L (3.5-5.1) mmol/L Chloride 101 (98-107) mmol/L Carbon Dioxide 16 L (22-30) mmol/L BUN 25 H (9-20) mg/dL Creatinine 2.41 H (0.66-1.25) mg/dL Glucose 79 (74-99) mg/dL Calcium 8.1 L (8.4-10.2) mg/dL Calcium panel 09/22/23 Range/Units 03:55 Calcium 8.1 L (8.4-10.2) mg/dL Pituitary panel 09/22/23 Range/Units 03:55 Sodium 137 (137-145) mmol/L Potassium 3.3 L (3.5-5.1) mmol/L Chloride 101 (98-107) mmol/L Carbon Dioxide 16 L (22-30) mmol/L BUN 25 H (9-20) mg/dL Creatinine 2.41 H (0.66-1.25) mg/dL Glucose 79 (74-99) mg/dL Calcium 8.1 L (8.4-10.2) mg/dL Adrenal panel 09/22/23 Range/Units 03:55 Sodium 137 (137-145) mmol/L Potassium 3.3 L (3.5-5.1) mmol/L Chloride 101 (98-107) mmol/L Carbon Dioxide 16 L (22-30) mmol/L BUN 25 H (9-20) mg/dL Creatinine 2.41 H (0.66-1.25) mg/dL Glucose 79 (74-99) mg/dL Calcium 8.1 L (8.4-10.2) mg/dL Assessment and Plan (1) Abdominal mass Narrative/Plan: 33-year-old male with mesenteric mass. Agree with oncologic evaluation. Unfortunately we do not have GI coverage at this time. Unfortunately we also do not have easy access to interventional radiology at this time. Ideally ultrasound guided core biopsy would take place initially to evaluate this mass. Lymphomatous process remains high in the differential at this time. Few small foci of air raised the possibility of necrosis or infection. Recommend infectious disease consultation and IV antibiotics. Clinically patient looks well and continue regular diet. Would consider however possible transfer to tertiary care center given the complexity of this case. Will follow. Current Visit: Yes Status: Acute Code(s): R19.00 - INTRA-ABD AND PELVIC SWELLING, MASS AND LUMP, UNSP SITE SNOMED Code(s): 678722584
--- NOTE | 2023-09-22 15:10 | P.CONS ---
History of Present Illness - Reason for Consult Consult date: 09/22/23 abd mass Requesting physician: Edgard Chapman - Chief Complaint urinary symptoms fatigue - History of Present Illness Patient is a 33-year-old male with a significant medical history of Crohn's disease on Humira. Consult was placed for mesenteric mass. Patient presented to the emergency room with complaints of decreased urinary output, fatigue and decreased appetite over the last 1 month. Patient states the symptoms have been progressive and he has been noticing his urine has been darker, tea like in color and has also had decreased urinary output. Also complaining of fatigue and decreased appetite. He reports approximate 10 pound weight loss over the la st 1 month as well as night sweats. Denies personal or family history of cancer. Denies EtOH abuse and smoking. Patient reports he does have chronic diarrhea but states that has been worsening. Denies black melena blood in stool. Denies abd pain, n/v, fever and chills. Upon admission CT abdomen pelvis revealed large mesenteric mass in the lower abdomen/upper pelvis measuring up to 9.6 cm with several surrounding nodular density suggesting metastasis and/or reactive nodes. The mass appears predominantly solid however with several small foci of internal gas. The mass involves the distal small bowel loop, consideration for fistulization. General surgery consulted. CBC revealed, WBC 16.8, hemoglobin 11.1, platelets 380,000. Creatinine 2.39, GFR 34, no history of known kidney disease, nephrology consulted. LFTs and bilirubin normal. Review of Systems 10 point ROS is negative except as stated in the HPI Past Medical History Additional Past Medical History / Comment(s): HX OF CROHN'S. History of Any Multi-Drug Resistant Organisms: None Reported Additional Past Surgical History / Comment(s): COLONOSCOPIES, WISDOM TEETH EXTRACTION. Past Anesthesia/Blood Transfusion Reactions: Motion Sickness Past Psychological History: No Psychological Hx Reported Smoking Status: Never smoker Past Alcohol Use History: Occasional Past Drug Use History: None Reported - Past Family History Mother Family Medical History: No Reported History Medications and Allergies Home Medications Medication Instructions Recorded Confirmed Type Adalimumab [Humira Pen] 40 mg SQ Q14D 02/18/19 09/21/23 History Loratadine [Claritin] 10 mg PO DAILY PRN 02/18/19 09/21/23 History Dicyclomine [Bentyl] 10 mg PO TID PRN 09/21/23 09/21/23 History prednisoLONE ACETATE 1% OPHTH 1 drops RIGHT EYE QID 09/21/23 09/21/23 History [Pred Forte 1%] Allergies Allergy/AdvReac Type Severity Reaction Status Date / Time No Known Allergies Allergy Verified 09/21/23 13:36 Physical Exam Vitals: Vital Signs Temp Pulse Pulse Resp BP BP Pulse Ox 09/22/23 08:14 98.2 F 99 20 143/81 98 09/22/23 07:30 99 20 09/22/23 04:30 108 H 09/22/23 03:50 99.2 F 108 H 18 155/73 98 09/22/23 03:05 98.1 F 115 H 18 139/88 95 09/22/23 00:00 98.3 F 107 H 18 137/79 95 09/21/23 19:47 119 H 18 122/68 97 09/21/23 16:44 98.6 F 115 H 20 120/83 97 09/21/23 11:58 100.9 F H 116 H 18 152/83 97 09/21/23 09:44 98.8 F 94 18 139/82 96 Intake and Output 09/21/23 09/22/23 09/22/23 22:59 06:59 14:59 Other: # Voids 1 Weight 111.13 kg - Constitutional General appearance: no acute distress - EENT Eyes: anicteric sclerae, EOMI ENT: hearing grossly normal - Neck Neck: no lymphadenopathy - Respiratory Respiratory: bilateral: CTA - Cardiovascular Rhythm: regular Heart sounds: normal: S1, S2 Abnormal Heart Sounds: no systolic murmur, no diastolic murmur, no rub, no S3 Gallop, no S4 Gallop, no click, no other - Gastrointestinal General gastrointestinal: normal bowel sounds, no organomegaly, soft, no tenderness - Integumentary Integumentary: no cyanotic, no jaundiced - Neurologic Neurologic: CNII-XII intact - Musculoskeletal Musculoskeletal: strength equal bilaterally - Psychiatric Psychiatric: A&O x's 3 Results CBC & Chem 7: 09/22/23 03:55 09/22/23 03:55 Labs: Abnormal Lab Results - Last 24 Hours (Table) 09/22/23 09/22/23 Range/Units 03:55 03:55 WBC 16.8 H (3.8-10.6) k/uL RBC 3.73 L (4.30-5.90) m/uL Hgb 11.1 L (13.0-17.5) gm/dL Hct 33.7 L (39.0-53.0) % Neutrophils # 13.9 H (1.3-7.7) k/uL Potassium 3.3 L (3.5-5.1) mmol/L Carbon Dioxide 16 L (22-30) mmol/L BUN 25 H (9-20) mg/dL Creatinine 2.41 H (0.66-1.25) mg/dL Calcium 8.1 L (8.4-10.2) mg/dL Abdominal x-ray: report reviewed CT scan - abdomen: report reviewed CT scan - pelvis: report reviewed Assessment and Plan (1) SHELIA (acute kidney injury) Current Visit: Yes Status: Acute Priority: High Code(s): N17.9 - ACUTE KIDNEY FAILURE, UNSPECIFIED SNOMED Code(s): 58427110 (2) Abdominal mass Current Visit: Yes Status: Acute Priority: High Code(s): R19.00 - INTRA- ABD AND PELVIC SWELLING, MASS AND LUMP, UNSP SITE SNOMED Code(s): 419535696 (3) Anemia Current Visit: Yes Status: Acute Priority: Medium Code(s): D64.9 - ANEMIA, UNSPECIFIED SNOMED Code(s): 950845112 Plan: Mesenteric mass: -History of Crohn's disease on Humira. Follows with Dr. Finch. Patient presented to the emergency room with complaints of decreased urinary output, dark colored urine, fatigue and decreased appetite over the last 1 month. Also complaining of fatigue and decreased appetite. He reports approximate 10 pound weight loss over the last 1 month as well as night sweats. Denies personal or family history of cancer. Denies EtOH abuse and smoking. -Upon admission CT abdomen pelvis w/o revealed large mesenteric mass in the lower abdomen/upper pelvis measuring up to 9.6 cm with several surrounding nodular density suggesting metastasis and/or reactive nodes. The mass appears predominantly solid however with several small foci of internal gas. The mass involves the distal small bowel loop, consideration for fistulization. Findings and concerns of malgincancy were discussed with patient and family. Patient was agreeable to proceed with further testing/imaging -General surgery consulted. They recommend GI and IR consult, however these services are limited at this time, and they are recommending transfer to tertiary center. ID consulted for evaluation for abx recommendations for possible infection vs necrosis -IR consult placed for mesenteric biopsy with flow cytometry, in the event pt is unable to be transferred -LDH and tumor markers ordered -Would recommend holding steroids at this time if possible, as this could alter biopsy results if found to be a lymphoma -Once kidney function improves will need to obtain CT CAP w/ contrast for staging Pt and family updated on POC SHELIA -No known history of kidney disease, began experiencing decreased urinary output and dark colored urine over the last 1 month -Creatinine 2.39, GFR 34 -Nephrology following Anemia: -Mild anemia noted, hgb noted at 11.1, previously in the 13 range -Anemia workup ordered to r/o underlying nutritional deficiencies -Could likely be related to anemia of inflammation -Will continue to monitor
[2023-09-22 15:39] LABS: Amorphous Sediment,Urine Rare /hpf; Appearance,Urine Cloudy (Clear); Bacteria,Urine Few /hpf; Bilirubin,Urine Negative (Negative); Blood,Urine Large (Negative); Color,Urine Light Red; Glucose,Urine (UA) Negative (Negative); Ketones,Urine Negative (Negative); Leukocyte Esterase,Urine Trace (Negative); Mucus,Urine Rare /hpf; Nitrite,Urine Negative (Negative); Protein,Urine 1+ (Negative); RBC,Urine 75 /hpf (0-5); Specific Gravity,Urine 1.009 (1.001-1.035); Urobilinogen,Urine <2.0 mg/dL (<2.0); WBC,Urine 25 /hpf (0-5)
[2023-09-22] MEDS: SODIUM CHLORIDE 0.9% 1,000 ML IV SCH (16:53)
[2023-09-22] MEDS: PIPERACILLIN-TAZOBACTAM 3.375 GM in SODIUM CHLORIDE 0.9% 100 ML IVPB SCH ×2 (16:59→22:48)
--- NOTE | 2023-09-22 22:03 | P.PN ---
Subjective This is a pleasant 33 years old male with past medical history of Crohn's disease on Humira and he follows up with Dr. Finch from GI but no PCP. Presents with urinary symptoms and fatigue and decreased appetite over the last 3-4 weeks. His complaining of from dark and blood in the urine. But no dysuria or urgency. No suprapubic or flank tenderness area No abdominal pain. He vomited 2 days ago, no diarrhea. He has low appetite. No chest pain or dyspnea or coughing. No headache dizziness weakness or numbness Smoking alcohol or illicit drugs. He is hemodynamically stable but he has a fever of 100.9, the tachycardia, blood pressure 152/83. Has leukocytosis of 18,000, hemoglobin 11.6, sodium 135, potassium 3.0. Creatinine Located above baseline at 2.39. 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 The mass involved distal small bowel Patient was started on normal saline with 30 mL/h and ceftriaxone 2 g. 09/22/2030 Patients with minimal symptom today, no significant abdominal pain or diarrhea. Surgery team evaluated the patient for this large abdominal mass, recommendation for IR for lymph node biopsy which is not available now and may need to be transfer to tertiary care center area Hematology oncology team on the case and they ordered some serological workup. Antibiotics was adjusted to Zosyn per infectious disease input is appreciated. Patient is evidence with acute kidney injury since admissions with creatinine stable at 2.4 but evidence with metabolic acidosis and low bicarb and patient was started on sodium bicarb today Review of systems CONSTITUTIONAL: No fever, no malaise, no fatigue. HEENT: No recent visual problems or hearing problems. Denied any sore throat. CARDIOVASCULAR: No orthopnea, PND, no palpitations, no syncope. PULMONARY: No shortness of breath, no cough, no hemoptysis. GASTROINTESTINAL: No diarrhea, no nausea, no vomiting, no abdominal pain. Normoactive bowel sounds. Active Medications Generic Name Dose Route Start Last Admin Trade Name Freq PRN Reason Stop Dose Admin Acetaminophen 650 mg 09/21/23 12:47 Acetaminophen Tab 325 Mg Tab PO Q6HR PRN Mild Pain or Fever > 100.5 Famotidine 20 mg 09/23/23 09:00 Famotidine 20 Mg/2 Ml Vial IV DAILY JEREMY Heparin Sodium (Porcine) 5,000 unit 09/21/23 21:00 09/22/23 19:46 Heparin Sodium,Porcine 5,000 Unit/Ml 1 Ml Vial SQ 5,000 unit Q12HR JEREMY Administration Hydromorphone HCl 0.5 mg 09/21/23 12:47 Hydromorphone 0.5 Mg/0.5 Ml Syringe IVP Q3HR PRN Moderate Pain (Scale 4 to 6) Sodium Bicarbonate 150 ml/ 1,150 mls @ 100 mls/hr 09/22/23 12:30 09/22/23 12:44 Dextrose/Water IV 100 mls/hr .[id number] JEREMY Administration Piperacillin Sod/Tazobactam 100 mls @ 25 mls/hr 09/22/23 16:00 09/22/23 16:59 Sod 3.375 gm/ Sodium Chloride IVPB 25 mls/hr Q8HR JEREMY Administration Protocol Naloxone HCl 0.2 mg 09/21/23 12:47 Naloxone 0.4 Mg/Ml 1 Ml Vial IV Q2M PRN Opioid Reversal Prednisolone Acetate 1 drops 09/21/23 22:00 09/22/23 19:45 Prednisolone Acetate 1% Ophth Drops 5 Ml Btl RIGHT EYE 1 drops QID JEREMY Administration Objective - Vital Signs Vital signs: Vital Signs Temp 98.2 F 09/22/23 12:34 Pulse 100 09/22/23 12:34 Resp 20 09/22/23 12:34 BP 128/81 09/22/23 12:34 Pulse Ox 95 09/22/23 12:34 FiO2 Intake & Output 09/21/23 09/22/23 09/22/23 18:59 06:59 18:59 Weight 111.13 kg 111.13 kg Other: # Voids 1 3 - Exam GENERAL: The patient is alert and oriented x3, not in any acute distress. Well developed, well nourished. HEENT: Pupils are round and equally reacting to light. EOMI. No scleral icterus. No conjunctival pallor. Normocephalic, atraumatic. No pharyngeal erythema. No thyromegaly. CARDIOVASCULAR: S1 and S2 present. No murmurs, rubs, or gallops. PULMONARY: Chest is clear to auscultation, no wheezing , no crackles. ABDOMEN: Soft, nontender, nondistended, normoactive bowel sounds. No palpable organomegaly. MUSCULOSKELETAL: No joint swelling or deformity. EXTREMITIES: No cyanosis, clubbing, or pedal edema. NEUROLOGICAL: Gross neurological examination did not reveal any focal deficits. SKIN: No rashes. no petechiae. - Labs CBC & Chem 7: 09/22/23 03:55 09/22/23 03:55 Labs: Abnormal Lab Results - Last 24 Hours (Table) 09/22/23 09/22/23 09/22/23 Range/Units 03:55 03:55 15:10 WBC 16.8 H (3.8-10.6) k/uL RBC 3.73 L (4.30-5.90) m/uL Hgb 11.1 L (13.0-17.5) gm/dL Hct 33.7 L (39.0-53.0) % Neutrophils # 13.9 H (1.3-7.7) k/uL Potassium 3.3 L (3.5-5.1) mmol/L Carbon Dioxide 16 L (22-30) mmol/L BUN 25 H (9-20) mg/dL Creatinine 2.41 H (0.66-1.25) mg/dL Calcium 8.1 L (8.4-10.2) mg/dL Urine Protein 1+ H (Negative) Urine Blood Large H (Negative) Ur Leukocyte Esterase Trace H (Negative) Urine RBC 75 H (0-5) /hpf Urine WBC 25 H (0-5) /hpf Urine WBC Clumps Moderate H (None) /hpf Amorphous Sediment Rare H (None) /hpf Urine Bacteria Few H (None) /hpf Urine Mucus Rare H (None) /hpf Microbiology - Last 24 Hours (Table) 09/21/23 08:00 Blood Culture - Preliminary Blood 09/21/23 08:10 Blood Culture - Preliminary Blood 09/21/23 08:04 Urine Culture - Final Urine,Voided Assessment and Plan Assessment: Abdominal mass, rule out malignancy versus lymphoma versus benign tumors versus others Acute kidney injury with metabolic acidosis Acute sepsis with fever and leukocytosis most likely secondary to UTI, versus abdominal infection Acute urinary tract infection Anemia Generalized weakness and fatigue History of Crohn's disease, not an active issue Obesity with BMI of 32.3. Plan: Continue with IV hydration and monitor kidney function Continue with Zosyn follow-up urine and blood culture Currently urologist has been consulted Several consultants on the case, appraisal coordinator/oncologist , we will consult surgery team as well hOld Farsh[facility] WOMACK team consult Labs and medication were reviewed.. Continue same treatment. Continue with symptomatic treatment. Resume home medication. Monitor labs and vitals. DVT and GI prophylaxis. Further recommendations as per clinical course of the patient DVT prophylaxis: Subcutaneous heparin GI Prophylaxis: Pepcid Prognosis is guarded
--- NOTE | 2023-09-22 22:17 | P.CONS ---
History of Present Illness - Reason for Consult Consult date: 09/22/23 - History of Present Illness Patient is a 33-year-old male with a past medical his significant for Crohn's disease in this patient has been on Humira patient presented to hospital yesterday morning for evaluation of fever flank pain that apparently has been going on for the last 3 to 4 weeks patient actually presented to the ER for evaluation of decreased urine output fatigue and decreased appetite and the symp toms has been getting progressively worse for the last 1 month patient noticed her urine to be having darker tea in color and had decreased urine output complaining of fatigue and decreased appetite and weight loss along with night sweats patient on presentation to the hospital did have a low-grade fever of 99.5 and subsequent spiked a fever of 100.9 F, patient was tachycardic with heart rate 108 not hypoxic or hypotensive white count of 18.7 with a left shift did have elevated BUN/creatinine urine was mostly hematuria has about 23 WBC influenza RSV COVID testing was negative patient did have blood cultures obtained which are currently pending did have a CT of abdominal pelvis large mesenteric mass in the lower abdominal wall per pelvis 9.6 cm with severe surrounding nodular density and there was some small foci of intraluminal gas with concern for possible tumor necrosis versus abscess infectious disease was consulted for further management and need for antibiotic therapy blood culture has been obtained which are currently pending Past Medical History Additional Past Medical History / Comment(s): HX OF CROHN'S. History of Any Multi-Drug Resistant Organisms: None Reported Additional Past Surgical History / Comment(s): COLONOSCOPIES, WISDOM TEETH EXTRACTION. Past Anesthesia/Blood Transfusion Reactions: Motion Sickness Past Psychological History: No Psychological Hx Reported Smoking Status: Never smoker Past Alcohol Use History: Occasional Past Drug Use History: None Reported - Past Family History Mother Family Medical History: No Reported History Medications and Allergies Home Medications Medication Instructions Recorded Confirmed Type Adalimumab [Humira Pen] 40 mg SQ Q14D 02/18/19 09/21/23 History Loratadine [Claritin] 10 mg PO DAILY PRN 02/18/19 09/21/23 History Dicyclomine [Bentyl] 10 mg PO TID PRN 09/21/23 09/21/23 History prednisoLONE ACETATE 1% OPHTH 1 drops RIGHT EYE QID 09/21/23 09/21/23 History [Pred Forte 1%] Allergies Allergy/AdvReac Type Severity Reaction Status Date / Time No Known Allergies Allergy Verified 09/21/23 13:36 Physical Exam Vitals: Vital Signs Temp Pulse Pulse Resp BP BP Pulse Ox 09/22/23 12:34 98.2 F 100 20 128/81 95 09/22/23 08:14 98.2 F 99 20 143/81 98 09/22/23 07:30 99 20 09/22/23 04:30 108 H 09/22/23 03:50 99.2 F 108 H 18 155/73 98 09/22/23 03:05 98.1 F 115 H 18 139/88 95 09/22/23 00:00 98.3 F 107 H 18 137/79 95 09/21/23 19:47 119 H 18 122/68 97 09/21/23 16:44 98.6 F 115 H 20 120/83 97 Intake and Output 09/22/23 09/22/23 09/22/23 06:59 14:59 22:59 Other: # Voids 1 Weight 111.13 kg Results CBC & Chem 7: 09/22/23 03:55 09/22/23 03:55 Labs: Abnormal Lab Results - Last 24 Hours (Table) 09/22/23 09/22/23 Range/Units 03:55 03:55 WBC 16.8 H (3.8-10.6) k/uL RBC 3.73 L (4.30-5.90) m/uL Hgb 11.1 L (13.0-17.5) gm/dL Hct 33.7 L (39.0-53.0) % Neutrophils # 13.9 H (1.3-7.7) k/uL Potassium 3.3 L (3.5-5.1) mmol/L Carbon Dioxide 16 L (22-30) mmol/L BUN 25 H (9-20) mg/dL Creatinine 2.41 H (0.66-1.25) mg/dL Calcium 8.1 L (8.4-10.2) mg/dL Microbiology - Last 24 Hours (Table) 09/21/23 08:04 Urine Culture - Final Urine,Voided Assessment and Plan Plan: 1patient presented to hospital with decreased urine output in this patient have a fever tachycardia elevated white count admitted currently for SIRS with evidence of large mesenteric mass lower abdominal with concern for possible malignancy there was concern for small surrounding area with internal air concerning for possible abscess, will need to cover for the enteric gram- negative both anaerobes and anaerobes to be the likely pathogen 2-await possible biopsy as well as culture through IR 3-blood culture has been obtained we will check inflammatory markers 4-start the patient on Zosyn 3.375 g every 8 hours We will follow on clinical condition and cultures to further adjust medication if needed Thank you for this consultation we will follow the patient along with you Dictation was produced using [employer] dictation software. please excuse any grammatical, word or spelling errors. Time with Patient: Greater than 30
[2023-09-22 23:40] LABS: % Iron Saturation 12.21 (15.00-50.00)
[2023-09-23] MEDS: DEXTROSE 5% IN WATER 1,000 ML with SODIUM BICARB (1 MEQ/ML) 150 ML IV SCH ×3 (02:40→18:30)
[2023-09-23] MEDS: FAMOTIDINE 20 MG/2 ML VIAL IV SCH (09:03)
[2023-09-23] MEDS: HEPARIN SODIUM,PORCINE 5,000 UNIT/ML 1 ML VIAL SQ SCH ×2 (09:03→20:56)
[2023-09-23] MEDS: prednisoLONE ACETATE 1% OPHTH DROPS 5 ML BTL RIGHT EYE SCH ×4 (09:03→20:56)
[2023-09-23] MEDS: PIPERACILLIN-TAZOBACTAM 3.375 GM in SODIUM CHLORIDE 0.9% 100 ML IVPB SCH ×3 (09:03→23:20)
[2023-09-23 10:52] LABS: BUN/Creat Ratio 7.58 Ratio (12.00-20.00); Blood Urea Nitrogen 19.7 mg/dL (9.0-27.0); Chloride 101 mmol/L (96-109); Glucose 109 mg/dL (70-110); Magnesium 1.9 mg/dL (1.5-2.4); Potassium 3.2 mmol/L (3.5-5.5); Sodium 136 mmol/L (135-145)
[2023-09-23 10:53] LABS: Calcium 8.1 mg/dL (8.7-10.3)
[2023-09-23] MEDS ORDERED: POTASSIUM CHLORIDE ER 20 MEQ TAB.ER PO STA (11:01)
--- NOTE | 2023-09-23 11:04 | P.PN ---
Subjective Patient is seen in follow-up for acute kidney injury. No improvement in renal function with IV fluids. Currently on bicarb drip. Acidosis better. Has been voiding. Denies gross hematuria. No vomiting or diarrhea. Vital signs are stable. General: No acute distress. HEENT: Head exam is unremarkable. LUNGS: No audible rhonchi or wheezes. HEART: Rate and Rhythm are regular. ABDOMEN: Nontender. EXTREMITITES: No edema. Objective - Vital Signs Vital signs: Vital Signs Temp 97.8 F 09/23/23 07:00 Pulse 97 09/23/23 07:00 Resp 19 09/23/23 07:00 BP 119/62 09/23/23 07:00 Pulse Ox 96 09/23/23 07:00 FiO2 Intake & Output 09/22/23 09/23/23 09/23/23 18:59 06:59 18:59 Other: # Voids 3 2 - Labs CBC & Chem 7: 09/22/23 03:55 09/23/23 03:35 Labs: Abnormal Lab Results - Last 24 Hours (Table) 09/22/23 09/22/23 09/22/23 Range/Units 12:08 12:08 15:10 Potassium (3.5-5.5) mmol/L Carbon Dioxide (21.6-31.8) mmol/L Anion Gap (4.00-12.00) mmol/L Creatinine (0.6-1.5) mg/dL Est GFR (CKD-EPI) (>=60) BUN/Creatinine Ratio (12.00-20.00) Ratio Calcium (8.7-10.3) mg/dL Iron 16 L (65-175) UG/DL TIBC 131 L (228-460) UG/DL % Saturation 12.21 L (15.00-50.00) Transferrin 93.4 L (204.0-354.0) mg/dL Ferritin 936.0 H (22.0-322.0) ng/mL C-Reactive Protein (0.00-0.80) mg/dL CA 125 Antigen 40.4 H (0.0-30.1) U/mL Procalcitonin (0.02-0.09) ng/mL Urine Protein 1+ H (Negative) Urine Blood Large H (Negative) Ur Leukocyte Esterase Trace H (Negative) Urine RBC 75 H (0-5) /hpf Urine WBC 25 H (0-5) /hpf Urine WBC Clumps Moderate H (None) /hpf Amorphous Sediment Rare H (None) /hpf Urine Bacteria Few H (None) /hpf Urine Mucus Rare H (None) /hpf 09/23/23 09/23/23 Range/Units 03:35 03:35 Potassium 3.2 L (3.5-5.5) mmol/L Carbon Dioxide 19.0 L (21.6-31.8) mmol/L Anion Gap 16.00 H (4.00-12.00) mmol/L Creatinine 2.6 H (0.6-1.5) mg/dL Est GFR (CKD-EPI) 32 L (>=60) BUN/Creatinine Ratio 7.58 L (12.00-20.00) Ratio Calcium 8.1 L (8.7-10.3) mg/dL Iron (65-175) UG/DL TIBC (228-460) UG/DL % Saturation (15.00-50.00) Transferrin (204.0-354.0) mg/dL Ferritin (22.0-322.0) ng/mL C-Reactive Protein 15.40 H (0.00-0.80) mg/dL CA 125 Antigen (0.0-30.1) U/mL Procalcitonin 0.88 H (0.02-0.09) ng/mL Urine Protein (Negative) Urine Blood (Negative) Ur Leukocyte Esterase (Negative) Urine RBC (0-5) /hpf Urine WBC (0-5) /hpf Urine WBC Clumps (None) /hpf Amorphous Sediment (None) /hpf Urine Bacteria (None) /hpf Urine Mucus (None) /hpf Microbiology - Last 24 Hours (Table) 09/21/23 08:00 Blood Culture - Preliminary Blood 09/21/23 08:10 Blood Culture - Preliminary Blood 09/21/23 08:04 Urine Culture - Final Urine,Voided Assessment and Plan Plan: Assessment: 1. Acute kidney injury secondary to ATN secondary to hypovolemia from vomiting and diarrhea. Creatinine slightly worse at 2.6. Baseline creatinine near 1. No hydronephrosis noted on CAT scan/Uls. UA for 2+ protein and large blood. Also white cells. Repeat UA showed 1+ protein with white cells and blood. 2. Hypokalemia from poor intake and intracellular shifting from IV bicarb. 3. Metabolic acidosis secondary to acute kidney injury and IV fluids. Improving with bicarb drip. 4. Crohn's disease. 5. Large mesenteric mass. Surgery and oncology following. Mesenteric biopsy pending. Plan: Maintain bicarb drip. Replace potassium. Check serologies. Check UPC. Avoid nephrotoxins. Continue to monitor renal function and urine output.
--- NOTE | 2023-09-23 12:54 | P.PN ---
Subjective Progress Note Date: 09/23/23 Principal diagnosis: Abdominal mass Patient still has no abdominal pain. T-max 100.3. CBC is pending. Tolerating regular diet. Objective - Vital Signs Vital signs: Vital Signs Temp 97.8 F 09/23/23 07:00 Pulse 97 09/23/23 07:00 Resp 19 09/23/23 07:00 BP 119/62 09/23/23 07:00 Pulse Ox 96 09/23/23 07:00 FiO2 Intake & Output 09/22/23 09/23/23 09/23/23 18:59 06:59 18:59 Other: # Voids 3 2 - Exam Abdomen: Soft, nontender, nondistended - Labs CBC & Chem 7: 09/22/23 03:55 09/23/23 03:35 Labs: Abnormal Lab Results - Last 24 Hours (Table) 09/22/23 09/22/23 09/22/23 Range/Units 12:08 12:08 15:10 Potassium (3.5-5.5) mmol/L Carbon Dioxide (21.6-31.8) mmol/L Anion Gap (4.00-12.00) mmol/L Creatinine (0.6-1.5) mg/dL Est GFR (CKD-EPI) (>=60) BUN/Creatinine Ratio (12.00-20.00) Ratio Calcium (8.7-10.3) mg/dL Iron 16 L (65-175) UG/DL TIBC 131 L (228-460) UG/DL % Saturation 12.21 L (15.00-50.00) Transferrin 93.4 L (204.0-354.0) mg/dL Ferritin 936.0 H (22.0-322.0) ng/mL C-Reactive Protein (0.00-0.80) mg/dL CA 125 Antigen 40.4 H (0.0-30.1) U/mL Procalcitonin (0.02-0.09) ng/mL Urine Protein 1+ H (Negative) Urine Blood Large H (Negative) Ur Leukocyte Esterase Trace H (Negative) Urine RBC 75 H (0-5) /hpf Urine WBC 25 H (0-5) /hpf Urine WBC Clumps Moderate H (None) /hpf Amorphous Sediment Rare H (None) /hpf Urine Bacteria Few H (None) /hpf Urine Mucus Rare H (None) /hpf 09/23/23 09/23/23 Range/Units 03:35 03:35 Potassium 3.2 L (3.5-5.5) mmol/L Carbon Dioxide 19.0 L (21.6-31.8) mmol/L Anion Gap 16.00 H (4.00-12.00) mmol/L Creatinine 2.6 H (0.6-1.5) mg/dL Est GFR (CKD-EPI) 32 L (>=60) BUN/Creatinine Ratio 7.58 L (12.00-20.00) Ratio Calcium 8.1 L (8.7-10.3) mg/dL Iron (65-175) UG/DL TIBC (228-460) UG/DL % Saturation (15.00-50.00) Transferrin (204.0-354.0) mg/dL Ferritin (22.0-322.0) ng/mL C-Reactive Protein 15.40 H (0.00-0.80) mg/dL CA 125 Antigen (0.0-30.1) U/mL Procalcitonin 0.88 H (0.02-0.09) ng/mL Urine Protein (Negative) Urine Blood (Negative) Ur Leukocyte Esterase (Negative) Urine RBC (0-5) /hpf Urine WBC (0-5) /hpf Urine WBC Clumps (None) /hpf Amorphous Sediment (None) /hpf Urine Bacteria (None) /hpf Urine Mucus (None) /hpf Microbiology - Last 24 Hours (Table) 09/21/23 08:00 Blood Culture - Preliminary Blood 09/21/23 08:10 Blood Culture - Preliminary Blood 09/21/23 08:04 Urine Culture - Final Urine,Voided Assessment and Plan (1) Abdominal mass Narrative/Plan: 33-year-old male with abdominal mass. Underlying malignancy not excluded. We will consult interventional radiology for percutaneous biopsy. Unsure whether that service is available to us at this time or not. Continue antibiotics given the CAT scan findings of air within the mesenteric mass. Current Visit: Yes Status: Acute Priority: High Code(s): R19.00 - INTRA- ABD AND PELVIC SWELLING, MASS AND LUMP, UNSP SITE SNOMED Code(s): 171545446
--- NOTE | 2023-09-23 15:03 | P.PN ---
Subjective Progress Note Date: 09/23/23 Principal diagnosis: Reason for follow-up is fever and possible infected mesenteric mass Patient is a 33-year-old male with a past medical his significant for Crohn's disease in this patient has been on Humira patient presented to hospital concerning for abdominal pain and decreased urine output patient noticed to be febrile he did have a CT abdominal pelvis with large mesenteric mass lower abdominal with some surrounding irregular density and small foci of gas conc erning for possible tumor necrosis versus infection On today's evaluation that is 09/23/2023 the patient did have a low-grade fever 100.3 last night the patient is afebrile this morning, the patient is breathing comfortably on room air without need for supplemental oxygen patient denies having any chest pain shortness of breath or cough, the patient denies having any nausea no vomiting no abdominal pain no diarrhea, feeling slightly better Patient white count is 16.8 as of yesterday creatinine is 2.6, cultures are currently pending Objective - Vital Signs Vital signs: Vital Signs Temp 97.8 F 09/23/23 07:00 Pulse 97 09/23/23 07:00 Resp 19 09/23/23 07:00 BP 119/62 09/23/23 07:00 Pulse Ox 96 09/23/23 07:00 FiO2 Intake & Output 09/22/23 09/23/23 09/23/23 18:59 06:59 18:59 Other: # Voids 3 2 - Exam GENERAL DESCRIPTION: Middle-age male lying in bed in no distress RESPIRATORY SYSTEM: Unlabored breathing , decreased breath sounds at bases HEART: S1 S2 regular rate and rhythm , ABDOMEN: Soft , no tenderness EXTREMITIES: No edema feet - Labs CBC & Chem 7: 09/22/23 03:55 09/23/23 03:35 Labs: Abnormal Lab Results - Last 24 Hours (Table) 09/22/23 09/22/23 09/22/23 Range/Units 12:08 12:08 15:10 Potassium (3.5-5.5) mmol/L Carbon Dioxide (21.6-31.8) mmol/L Anion Gap (4.00-12.00) mmol/L Creatinine (0.6-1.5) mg/dL Est GFR (CKD-EPI) (>=60) BUN/Creatinine Ratio (12.00-20.00) Ratio Calcium (8.7-10.3) mg/dL Iron 16 L (65-175) UG/DL TIBC 131 L (228-460) UG/DL % Saturation 12.21 L (15.00-50.00) Transferrin 93.4 L (204.0-354.0) mg/dL Ferritin 936.0 H (22.0-322.0) ng/mL C-Reactive Protein (0.00-0.80) mg/dL CA 125 Antigen 40.4 H (0.0-30.1) U/mL Procalcitonin (0.02-0.09) ng/mL Urine Protein 1+ H (Negative) Urine Blood Large H (Negative) Ur Leukocyte Esterase Trace H (Negative) Urine RBC 75 H (0-5) /hpf Urine WBC 25 H (0-5) /hpf Urine WBC Clumps Moderate H (None) /hpf Amorphous Sediment Rare H (None) /hpf Urine Bacteria Few H (None) /hpf Urine Mucus Rare H (None) /hpf 09/23/23 09/23/23 Range/Units 03:35 03:35 Potassium 3.2 L (3.5-5.5) mmol/L Carbon Dioxide 19.0 L (21.6-31.8) mmol/L Anion Gap 16.00 H (4.00-12.00) mmol/L Creatinine 2.6 H (0.6-1.5) mg/dL Est GFR (CKD-EPI) 32 L (>=60) BUN/Creatinine Ratio 7.58 L (12.00-20.00) Ratio Calcium 8.1 L (8.7-10.3) mg/dL Iron (65-175) UG/DL TIBC (228-460) UG/DL % Saturation (15.00-50.00) Transferrin (204.0-354.0) mg/dL Ferritin (22.0-322.0) ng/mL C-Reactive Protein 15.40 H (0.00-0.80) mg/dL CA 125 Antigen (0.0-30.1) U/mL Procalcitonin 0.88 H (0.02-0.09) ng/mL Urine Protein (Negative) Urine Blood (Negative) Ur Leukocyte Esterase (Negative) Urine RBC (0-5) /hpf Urine WBC (0-5) /hpf Urine WBC Clumps (None) /hpf Amorphous Sediment (None) /hpf Urine Bacteria (None) /hpf Urine Mucus (None) /hpf Microbiology - Last 24 Hours (Table) 09/21/23 08:00 Blood Culture - Preliminary Blood 09/21/23 08:10 Blood Culture - Preliminary Blood 09/21/23 08:04 Urine Culture - Final Urine,Voided Assessment and Plan (1) Abdominal mass Current Visit: Yes Status: Acute Priority: High Code(s): R19.00 - INTRA-A BD AND PELVIC SWELLING, MASS AND LUMP, UNSP SITE SNOMED Code(s): 780555228 (2) Fever Current Visit: Yes Status: Acute Code(s): R50.9 - FEVER, UNSPECIFIED SNOMED Code(s): 554695373 (3) Leukocytosis Current Visit: Yes Status: Acute Code(s): D72.829 - ELEVATED WHITE BLOOD CELL COUNT, UNSPECIFIED SNOMED Code(s): 829680295 Plan: 1patient presented to hospital with decreased urine output in this patient have a fever tachycardia elevated white count admitted currently for SIRS with evidence of large mesenteric mass lower abdominal with concern for possible malignancy there was concern for small surrounding area with internal air concerning for possible abscess, will need to cover for the enteric gram- negative both anaerobes and anaerobes to be the likely pathogen 2-await possible biopsy as well as culture through IR 3-blood culture has been obtained , Waiting for inflammatory markers. 4patient to continue with Zosyn while waiting for the culture and workup to be completed Dictation was produced using [employer] dictation software. please excuse any grammatical, word or spelling errors. Time with Patient: Less than 30
[2023-09-23 15:45] LABS: Creatinine,Urine Random 60.6 mg/dL; Protein/Creatinine Ratio,Urine 1.485
[2023-09-23 16:32] LABS: Albumin 2.7 g/dL (3.8-4.9)
[2023-09-23 18:48] LABS: Hepatitis A Antibody IgM Nonreactive; Hepatitis B Core IgM Nonreactive; Hepatitis B Surface Antigen Nonreactive; Hepatitis C IgG Antibody Nonreactive
--- NOTE | 2023-09-23 20:15 | P.PN ---
Subjective This is a pleasant 33 years old male with past medical history of Crohn's disease on Humira and he follows up with Dr. Finch from GI but no PCP. Presents with urinary symptoms and fatigue and decreased appetite over the last 3-4 weeks. His complaining of from dark and blood in the urine. But no dysuria or urgency. No suprapubic or flank tenderness area No abdominal pain. He vomited 2 days ago, no diarrhea. He has low appetite. No chest pain or dyspnea or coughing. No headache dizziness weakness or numbness Smoking alcohol or illicit drugs. He is hemodynamically stable but he has a fever of 100.9, the tachycardia, blood pressure 152/83. Has leukocytosis of 18,000, hemoglobin 11.6, sodium 135, potassium 3.0. Creatinine Located above baseline at 2.39. 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 The mass involved distal small bowel Patient was started on normal saline with 30 mL/h and ceftriaxone 2 g. 09/22/2030 Patients with minimal symptom today, no significant abdominal pain or diarrhea. Surgery team evaluated the patient for this large abdominal mass, recommendation for IR for lymph node biopsy which is not available now and may need to be transfer to tertiary care center area Hematology oncology team on the case and they ordered some serological workup. Antibiotics was adjusted to Zosyn per infectious disease input is appreciated. Patient is evidence with acute kidney injury since admissions with creatinine stable at 2.4 but evidence with metabolic acidosis and low bicarb and patient was started on sodium bicarb today 09/23/2023 Patient lying in bed, lethargic, fully awake oriented, relaxed. No new complaints. Abdomen still distended He remains on bicarbonate drip and IV Zosyn for intra-abdominal infection Creatinine 2.6 and been monitored closely Patient will require tissue sample and We'll discuss with consultants Objective - Vital Signs Vital signs: Vital Signs Temp 98.1 F 09/23/23 13:56 Pulse 104 H 09/23/23 13:56 Resp 21 09/23/23 13:56 BP 145/70 09/23/23 13:56 Pulse Ox 97 09/23/23 13:56 FiO2 Intake & Output 09/23/23 09/23/23 09/24/23 06:59 18:59 06:59 Other: # Voids 2 5 # Bowel Movements 1 - Exam GENERAL: The patient is alert and oriented x3, not in any acute distress. Well developed, well nourished. HEENT: Pupils are round and equally reacting to light. EOMI. No scleral icterus. No conjunctival pallor. Normocephalic, atraumatic. No pharyngeal erythema. No thyromegaly. CARDIOVASCULAR: S1 and S2 present. No murmurs, rubs, or gallops. PULMONARY: Chest is clear to auscultation, no wheezing , no crackles. ABDOMEN: Soft, nontender, nondistended, normoactive bowel sounds. No palpable organomegaly. MUSCULOSKELETAL: No joint swelling or deformity. EXTREMITIES: No cyanosis, clubbing, or pedal edema. NEUROLOGICAL: Gross neurological examination did not reveal any focal deficits. SKIN: No rashes. no petechiae. - Labs CBC & Chem 7: 09/22/23 03:55 09/23/23 03:35 Labs: Abnormal Lab Results - Last 24 Hours (Table) 09/22/23 09/22/23 09/23/23 Range/Units 12:08 12:08 03:35 Potassium (3.5-5.5) mmol/L Carbon Dioxide (21.6-31.8) mmol/L Anion Gap (4.00-12.00) mmol/L Creatinine (0.6-1.5) mg/dL Est GFR (CKD-EPI) (>=60) BUN/Creatinine Ratio (12.00-20.00) Ratio Calcium (8.7-10.3) mg/dL Iron 16 L (65-175) UG/DL TIBC 131 L (228-460) UG/DL % Saturation 12.21 L (15.00-50.00) Transferrin 93.4 L (204.0-354.0) mg/dL Ferritin 936.0 H (22.0-322.0) ng/mL C-Reactive Protein (0.00-0.80) mg/dL Total Protein (PEP) (6.2-8.2) g/dL Albumin (PEP) (3.8-4.9) g/dL CA 125 Antigen 40.4 H (0.0-30.1) U/mL Procalcitonin 0.88 H (0.02-0.09) ng/mL 09/23/23 09/23/23 Range/Units 03:35 03:35 Potassium 3.2 L (3.5-5.5) mmol/L Carbon Dioxide 19.0 L (21.6-31.8) mmol/L Anion Gap 16.00 H (4.00-12.00) mmol/L Creatinine 2.6 H (0.6-1.5) mg/dL Est GFR (CKD-EPI) 32 L (>=60) BUN/Creatinine Ratio 7.58 L (12.00-20.00) Ratio Calcium 8.1 L (8.7-10.3) mg/dL Iron (65-175) UG/DL TIBC (228-460) UG/DL % Saturation (15.00-50.00) Transferrin (204.0-354.0) mg/dL Ferritin (22.0-322.0) ng/mL C-Reactive Protein 15.40 H (0.00-0.80) mg/dL Total Protein (PEP) 6.0 L (6.2-8.2) g/dL Albumin (PEP) 2.7 L (3.8-4.9) g/dL CA 125 Antigen (0.0-30.1) U/mL Procalcitonin (0.02-0.09) ng/mL Microbiology - Last 24 Hours (Table) 09/21/23 08:00 Blood Culture - Preliminary Blood 09/21/23 08:10 Blood Culture - Preliminary Blood Assessment and Plan Assessment: Abdominal mass, rule out malignancy versus lymphoma versus benign tumors versus others Acute kidney injury with metabolic acidosis Acute sepsis with fever and leukocytosis most likely secondary to UTI, versus abdominal infection Acute urinary tract infection Anemia Generalized weakness and fatigue History of Crohn's disease, not an active issue Obesity with BMI of 32.3. Plan: Continue with IV hydration and monitor kidney function Continue with Zosyn follow-up urine and blood culture Currently urologist has been consulted Several consultants on the case, radiation protection specialist/oncologist , [facility] Labs and medication were reviewed.. Continue same treatment. Continue with symptomatic treatment. Resume home medication. Monitor labs and vitals. DVT and GI prophylaxis. Further recommendations as per clinical course of the patient DVT prophylaxis: Subcutaneous heparin GI Prophylaxis: Pepcid Prognosis is guarded
[2023-09-24] MEDS: FAMOTIDINE 20 MG/2 ML VIAL IV SCH (08:26)
[2023-09-24] MEDS: PIPERACILLIN-TAZOBACTAM 3.375 GM in SODIUM CHLORIDE 0.9% 100 ML IVPB SCH ×3 (08:27→23:35)
[2023-09-24 08:47] LABS: Basophils # (A) 0.05 X 10*3/uL (0.00-0.10); Basophils % (A) 0.4 %; Eosinophils # (A) 0.16 X 10*3/uL (0.04-0.35); Eosinophils % (A) 1.3 %; HCT 27.3 % (39.6-50.0); HGB 9.2 g/dL (13.0-17.0); Lymphocytes # (A) 1.61 X 10*3/uL (0.90-5.00); Lymphocytes % (A) 13.4 %; MCH 28.8 pg (27.0-32.0); MCHC 33.7 g/dL (32.0-37.0); MCV 85.3 FL (80.0-97.0); Mean Platelet Volume 9.3 FL (9.5-12.2); Monocytes # (A) 1.04 X 10*3/uL (0.20-1.00); Monocytes % (A) 8.6 %; NRBC Per 100 WBC 0 X 10*3/uL (0.00-0.01); Neutrophils # (A) 9.06 X 10*3/uL (1.80-7.70); Neutrophils % (A) 75.2 %; Platelet Count 413 X 10*3/uL (140-440); RDW 12.2 % (11.5-14.5); WBC 12.05 X 10*3/uL (4.50-10.00)
[2023-09-24 09:36] LABS: INR 1.1 (<1.2)
[2023-09-24] MEDS: prednisoLONE ACETATE 1% OPHTH DROPS 5 ML BTL RIGHT EYE SCH ×4 (09:47→22:15)
[2023-09-24] MEDS: HEPARIN SODIUM,PORCINE 5,000 UNIT/ML 1 ML VIAL SQ SCH ×2 (09:47→22:14)
[2023-09-24 09:53] LABS: ALT 46 U/L (10-49); AST 43 U/L (14-35); Albumin 2.6 g/dL (3.8-4.9); Albumin/Globulin Ratio 0.84 Ratio (1.60-3.17); Alkaline Phosphatase 30 U/L (41-126); Bilirubin, Conjugated <0.20 mg/dL (0.20-0.40); Bilirubin,Unconjugated >0.10 mg/dL (0.20-1.00); Carbon Dioxide 27.5 mmol/L (21.6-31.8); Chloride 103 mmol/L (96-109); Globulin 3.1 g/dL (1.6-3.3); Glucose 101 mg/dL (70-110); Potassium 3.2 mmol/L (3.5-5.5); Sodium 142 mmol/L (135-145); Total Bilirubin 0.3 mg/dL (0.3-1.2); Total Protein 5.7 g/dL (6.2-8.2)
[2023-09-24] MEDS ORDERED: POTASSIUM CHLORIDE ER 20 MEQ TAB.ER PO STA (10:56)
--- NOTE | 2023-09-24 10:58 | P.PN ---
Subjective Patient is seen in follow-up for acute kidney injury. Renal function stable. Currently on bicarb drip. Acidosis improved. Has been voiding. Denies gross hematuria. No vomiting or diarrhea. Vital signs are stable. General: No acute distress. HEENT: Head exam is unremarkable. LUNGS: No audible rhonchi or wheezes. HEART: Rate and Rhythm are regular. ABDOMEN: Nontender. EXTREMITITES: No edema. Objective - Vital Signs Vital signs: Vital Signs Temp 98.0 F 09/24/23 07:11 Pulse 77 09/24/23 08:00 Resp 19 09/24/23 08:00 BP 125/79 09/24/23 07:11 Pulse Ox 98 09/24/23 07:11 FiO2 Intake & Output 09/23/23 09/24/23 09/24/23 18:59 06:59 18:59 Intake Total 1999 Balance 1999 Intake: Intake, IV Titration 1200 Amount Dextrose 5% in Water 1, 1200 000 ml @ 100 mls/hr IV . [id number] JEREMY with Sodium Bicarb (1 Meq/ml) 150 ml Rx#:[id number] Oral 800 Other: # Voids 5 3 # Bowel Movements 1 - Labs CBC & Chem 7: 09/24/23 04:15 09/24/23 04:15 Labs: Abnormal Lab Results - Last 24 Hours (Table) 09/23/23 09/23/23 09/24/23 Range/Units 03:35 03:35 04:15 WBC 12.05 H (4.50-10.00) X 10*3/uL RBC 3.20 L (4.40-5.60) X 10*6/uL Hgb 9.2 L (13.0-17.0) g/dL Hct 27.3 L (39.6-50.0) % MPV 9.3 L (9.5-12.2) FL Immature Gran # 0.13 H (0.00-0.04) X 10*3/uL Neutrophils # 9.06 H (1.80-7.70) X 10*3/uL Monocytes # 1.04 H (0.20-1.00) X 10*3/uL Potassium (3.5-5.5) mmol/L Creatinine (0.6-1.5) mg/dL Est GFR (CKD-EPI) (>=60) BUN/Creatinine Ratio (12.00-20.00) Ratio Calcium (8.7-10.3) mg/dL Unconjugated Bilirubin (0.20-1.00) mg/dL AST (14-35) U/L Alkaline Phosphatase (41-126) U/L Total Protein (6.2-8.2) g/dL Total Protein (PEP) 6.0 L (6.2-8.2) g/dL Albumin (3.8-4.9) g/dL Albumin (PEP) 2.7 L (3.8-4.9) g/dL Albumin/Globulin Ratio (1.60-3.17) Ratio Procalcitonin 0.88 H (0.02-0.09) ng/mL 09/24/23 Range/Units 04:15 WBC (4.50-10.00) X 10*3/uL RBC (4.40-5.60) X 10*6/uL Hgb (13.0-17.0) g/dL Hct (39.6-50.0) % MPV (9.5-12.2) FL Immature Gran # (0.00-0.04) X 10*3/uL Neutrophils # (1.80-7.70) X 10*3/uL Monocytes # (0.20-1.00) X 10*3/uL Potassium 3.2 L (3.5-5.5) mmol/L Creatinine 2.5 H (0.6-1.5) mg/dL Est GFR (CKD-EPI) 34 L (>=60) BUN/Creatinine Ratio 5.60 L (12.00-20.00) Ratio Calcium 8.0 L (8.7-10.3) mg/dL Unconjugated Bilirubin >0.10 L (0.20-1.00) mg/dL AST 43 H (14-35) U/L Alkaline Phosphatase 30 L (41-126) U/L Total Protein 5.7 L (6.2-8.2) g/dL Total Protein (PEP) (6.2-8.2) g/dL Albumin 2.6 L (3.8-4.9) g/dL Albumin (PEP) (3.8-4.9) g/dL Albumin/Globulin Ratio 0.84 L (1.60-3.17) Ratio Procalcitonin (0.02-0.09) ng/mL Microbiology - Last 24 Hours (Table) 09/21/23 08:00 Blood Culture - Preliminary Blood 09/21/23 08:10 Blood Culture - Preliminary Blood Assessment and Plan Plan: Assessment: 1. Acute kidney injury secondary to ATN secondary to hypovolemia from vomiting and diarrhea. Creatinine peaked at 2.6 this admission - stable at 2.5 today. Baseline creatinine near 1. No hydronephrosis noted on CAT scan/Uls. UA for 2+ protein and large blood. Also white cells. Repeat UA showed 1+ protein with white cells and blood. No urinary retention per nurse. 2. Hypokalemia from poor intake and intracellular shifting from IV bicarb. 3. Metabolic acidosis secondary to acute kidney injury and IV fluids. Improved with bicarb drip. 4. Crohn's disease. 5. Large mesenteric mass. Surgery and oncology following. Mesenteric biopsy pending. Plan: Stop bicarb drip. Start normal saline. Replace potassium. F/u serologies - negative so far. UPC 1.48 g. Avoid nephrotoxins. Continue to monitor renal function and urine output. Transfer to [facility] be considered.
[2023-09-24] MEDS ORDERED: IOPAMIDOL CONTRAST (ORAL USE) VIAL PO PRN (11:30)
--- NOTE | 2023-09-24 13:16 | P.PN ---
Subjective Progress Note Date: 09/24/23 Principal diagnosis: Reason for follow-up is fever and possible infected mesenteric mass Patient is a 33-year-old male with a past medical his significant for Crohn's disease in this patient has been on Humira patient presented to hospital concerning for abdominal pain and decreased urine output patient noticed to be febrile he did have a CT abdominal pelvis with large mesenteric mass lower abdominal with some surrounding irregular density and small foci of gas conc erning for possible tumor necrosis versus infection On today's evaluation that is 09/24/2023 patient remains to be afebrile, the patient is breathing comfortably on room air, the patient denies chest pain shortness of breath or cough., The patient denies nausea vomiting, denies abdominal pain no diarrhea, no new symptoms White count is 12.05, creatinine is 2.5 cultures pending Objective - Vital Signs Vital signs: Vital Signs Temp 98.0 F 09/24/23 07:11 Pulse 77 09/24/23 08:00 Resp 19 09/24/23 08:00 BP 125/79 09/24/23 07:11 Pulse Ox 98 09/24/23 07:11 FiO2 Intake & Output 09/23/23 09/24/23 09/24/23 18:59 06:59 18:59 Intake Total 1999 Balance 1999 Intake: Intake, IV Titration 1200 Amount Dextrose 5% in Water 1, 1200 000 ml @ 100 mls/hr IV . [id number] JEREMY with Sodium Bicarb (1 Meq/ml) 150 ml Rx#:[id number] Oral 800 Other: # Voids 5 3 # Bowel Movements 1 - Exam GENERAL DESCRIPTION: Middle-age male lying in bed in no distress RESPIRATORY SYSTEM: Unlabored breathing , decreased breath sounds at bases HEART: S1 S2 regular rate and rhythm , ABDOMEN: Soft , no tenderness EXTREMITIES: No edema feet - Labs CBC & Chem 7: 09/24/23 04:15 09/24/23 04:15 Labs: Abnormal Lab Results - Last 24 Hours (Table) 09/23/23 09/24/23 09/24/23 Range/Units 03:35 04:15 04:15 WBC 12.05 H (4.50-10.00) X 10*3/uL RBC 3.20 L (4.40-5.60) X 10*6/uL Hgb 9.2 L (13.0-17.0) g/dL Hct 27.3 L (39.6-50.0) % MPV 9.3 L (9.5-12.2) FL Immature Gran # 0.13 H (0.00-0.04) X 10*3/uL Neutrophils # 9.06 H (1.80-7.70) X 10*3/uL Monocytes # 1.04 H (0.20-1.00) X 10*3/uL Potassium 3.2 L (3.5-5.5) mmol/L Creatinine 2.5 H (0.6-1.5) mg/dL Est GFR (CKD-EPI) 34 L (>=60) BUN/Creatinine Ratio 5.60 L (12.00-20.00) Ratio Calcium 8.0 L (8.7-10.3) mg/dL Unconjugated Bilirubin >0.10 L (0.20-1.00) mg/dL AST 43 H (14-35) U/L Alkaline Phosphatase 30 L (41-126) U/L Total Protein 5.7 L (6.2-8.2) g/dL Total Protein (PEP) 6.0 L (6.2-8.2) g/dL Albumin 2.6 L (3.8-4.9) g/dL Albumin (PEP) 2.7 L (3.8-4.9) g/dL Albumin/Globulin Ratio 0.84 L (1.60-3.17) Ratio Microbiology - Last 24 Hours (Table) 09/21/23 08:00 Blood Culture - Preliminary Blood 09/21/23 08:10 Blood Culture - Preliminary Blood Assessment and Plan (1) Abdominal mass Current Visit: Yes Status: Acute Priority: High Code(s): R19.00 - INTRA- ABD AND PELVIC SWELLING, MASS AND LUMP, UNSP SITE SNOMED Code(s): 710696390 (2) Fever Current Visit: Yes Status: Acute Code(s): R50.9 - FEVER, UNSPECIFIED SNOMED Code(s): 697413370 (3) Leukocytosis Current Visit: Yes Status: Acute Code(s): D72.829 - ELEVATED WHITE BLOOD CELL COUNT, UNSPECIFIED SNOMED Code(s): 055222401 Plan: 1patient presented to hospital with decreased urine output in this patient have a fever tachycardia elevated white count admitted currently for SIRS with evidence of large mesenteric mass lower abdominal with concern for possible malignancy there was concern for small surrounding area with internal air concerning for possible abscess, will need to cover for the enteric gram- negative both anaerobes and anaerobes to be the likely pathogen 2-await possible biopsy as well as culture through IR 3-blood culture has been obtained , Patient did have CRP of 15.40 Pro-Gerson 0.88. 4patient to continue with Zosyn while waiting for the culture to finalize and workup to be completed question concern answered Dictation was produced using [email or web address] dictation software. please excuse any grammatical, word or spelling errors.
--- NOTE | 2023-09-24 13:41 | P.PN ---
Subjective Progress Note Date: 09/24/23 CHIEF COMPLAINT: Abdominal mass HISTORY OF PRESENT ILLNESS: Patient denies any abdominal pain. He tolerated diet. Denies any nausea or vomiting. Has history of Crohn's. Patient possibly due to be evaluated by IR service for biopsy of the mesenteric mass. Afebrile. WBC 16.8 down to 12.05 Hgb 9.2 platelets 413 potassium 3.2 and being replaced PHYSICAL EXAM: VITAL SIGNS: Reviewed. GENERAL: Well-developed in no acute distress. ABDOMEN: Soft. Nondistended. Nontender. ASSESSMENT: 1. Mesenteric mass, underlying malignancy not excluded PLAN: -Awaiting interventional radiology evaluation for percutaneous biopsy -Continue antibiotics Physician Hose Operator note has been reviewed by physician. Signing provider agrees with the documented findings, assessment, and plan of care. Objective - Vital Signs Vital signs: Vital Signs Temp 98.0 F 09/24/23 07:11 Pulse 77 09/24/23 08:00 Resp 19 09/24/23 08:00 BP 125/79 09/24/23 07:11 Pulse Ox 98 09/24/23 07:11 FiO2 Intake & Output 09/23/23 09/24/23 09/24/23 18:59 06:59 18:59 Intake Total 1999 Balance 1999 Intake: Intake, IV Titration 1200 Amount Dextrose 5% in Water 1, 1200 000 ml @ 100 mls/hr IV . [id number] JEREMY with Sodium Bicarb (1 Meq/ml) 150 ml Rx#:[id number] Oral 800 Other: # Voids 5 3 # Bowel Movements 1 - Labs CBC & Chem 7: 09/24/23 04:15 09/24/23 04:15 Labs: Abnormal Lab Results - Last 24 Hours (Table) 09/23/23 09/24/23 09/24/23 Range/Units 03:35 04:15 04:15 WBC 12.05 H (4.50-10.00) X 10*3/uL RBC 3.20 L (4.40-5.60) X 10*6/uL Hgb 9.2 L (13.0-17.0) g/dL Hct 27.3 L (39.6-50.0) % MPV 9.3 L (9.5-12.2) FL Immature Gran # 0.13 H (0.00-0.04) X 10*3/uL Neutrophils # 9.06 H (1.80-7.70) X 10*3/uL Monocytes # 1.04 H (0.20-1.00) X 10*3/uL Potassium 3.2 L (3.5-5.5) mmol/L Creatinine 2.5 H (0.6-1.5) mg/dL Est GFR (CKD-EPI) 34 L (>=60) BUN/Creatinine Ratio 5.60 L (12.00-20.00) Ratio Calcium 8.0 L (8.7-10.3) mg/dL Unconjugated Bilirubin >0.10 L (0.20-1.00) mg/dL AST 43 H (14-35) U/L Alkaline Phosphatase 30 L (41-126) U/L Total Protein 5.7 L (6.2-8.2) g/dL Total Protein (PEP) 6.0 L (6.2-8.2) g/dL Albumin 2.6 L (3.8-4.9) g/dL Albumin (PEP) 2.7 L (3.8-4.9) g/dL Albumin/Globulin Ratio 0.84 L (1.60-3.17) Ratio Microbiology - Last 24 Hours (Table) 09/21/23 08:00 Blood Culture - Preliminary Blood 09/21/23 08:10 Blood Culture - Preliminary Blood
--- NOTE | 2023-09-24 14:58 | P.PN ---
Subjective Progress Note Date: 09/24/23 Principal diagnosis: Abd mass In f/u today pt is tolerating oral contrast, no recent vomiting. He is denying N,V, dysphagia, SOB, distension, acute changes in bowel or bladder. Objective - Vital Signs Vital signs: Vital Signs Temp 98.0 F 09/24/23 07:11 Pulse 77 09/24/23 08:00 Resp 19 09/24/23 08:00 BP 125/79 09/24/23 07:11 Pulse Ox 98 09/24/23 07:11 FiO2 Intake & Output 09/23/23 09/24/23 09/24/23 18:59 06:59 18:59 Intake Total 1999 Balance 1999 Intake: Intake, IV Titration 1200 Amount Dextrose 5% in Water 1, 1200 000 ml @ 100 mls/hr IV . [id number] JEREMY with Sodium Bicarb (1 Meq/ml) 150 ml Rx#:[id number] Oral 800 Other: # Voids 5 3 # Bowel Movements 1 - Constitutional General appearance: Present: average body habitus, cooperative, no acute distress - EENT Eyes: Present: anicteric sclerae, EOMI ENT: Present: hearing grossly normal - Respiratory Details: Resp even and un labored - Cardiovascular Details: skin warm and dry to touch - Peripheral edema leg Peripheral Edema: bilateral: None - Integumentary Integumentary: Present: normal - Neurologic Neurologic: Present: CNII-XII intact - Musculoskeletal Musculoskeletal: Present: strength equal bilaterally - Psychiatric Psychiatric: Present: A&O x's 3, appropriate affect, intact judgment & insight - Labs CBC & Chem 7: 09/24/23 04:15 09/24/23 04:15 Labs: Abnormal Lab Results - Last 24 Hours (Table) 09/23/23 09/24/23 09/24/23 Range/Units 03:35 04:15 04:15 WBC 12.05 H (4.50-10.00) X 10*3/uL RBC 3.20 L (4.40-5.60) X 10*6/uL Hgb 9.2 L (13.0-17.0) g/dL Hct 27.3 L (39.6-50.0) % MPV 9.3 L (9.5-12.2) FL Immature Gran # 0.13 H (0.00-0.04) X 10*3/uL Neutrophils # 9.06 H (1.80-7.70) X 10*3/uL Monocytes # 1.04 H (0.20-1.00) X 10*3/uL Potassium 3.2 L (3.5-5.5) mmol/L Creatinine 2.5 H (0.6-1.5) mg/dL Est GFR (CKD-EPI) 34 L (>=60) BUN/Creatinine Ratio 5.60 L (12.00-20.00) Ratio Calcium 8.0 L (8.7-10.3) mg/dL Unconjugated Bilirubin >0.10 L (0.20-1.00) mg/dL AST 43 H (14-35) U/L Alkaline Phosphatase 30 L (41-126) U/L Total Protein 5.7 L (6.2-8.2) g/dL Total Protein (PEP) 6.0 L (6.2-8.2) g/dL Albumin 2.6 L (3.8-4.9) g/dL Albumin (PEP) 2.7 L (3.8-4.9) g/dL Albumin/Globulin Ratio 0.84 L (1.60-3.17) Ratio Microbiology - Last 24 Hours (Table) 09/21/23 08:00 Blood Culture - Preliminary Blood 09/21/23 08:10 Blood Culture - Preliminary Blood Assessment and Plan (1) SHELIA (acute kidney injury) Current Visit: Yes Status: Acute Priority: High Code(s): N17.9 - ACUTE KIDNEY FAILURE, UNSPECIFIED SNOMED Code(s): 37430066 (2) Abdominal mass Current Visit: Yes Status: Acute Priority: High Code(s): R19.00 - INTRA- ABD AND PELVIC SWELLING, MASS AND LUMP, UNSP SITE SNOMED Code(s): 933175860 (3) Anemia Current Visit: Yes Status: Acute Priority: Medium Code(s): D64.9 - ANEMIA, UNSPECIFIED SNOMED Code(s): 676401283 Plan: SHELIA -Nephrology following and managing -[place] to be 2/2 N,V -Cr stable today Large abd mass -Discussed case with IR RN. Imaging ordered for Radiologist so they can determine if the mass is accessible percutaneously. Pending scan and IR review -Discussed briefly with Surgeon. They will remain on case for now. In case IR is not able to biopsy, they will get open biopsy. -Above discussed with pt and , and they are agreeable with plan at this time -LDH was normal. -CRP elevated, most consistent with inflammation Anemia -Hgb stable at this time -Iron sat low, ferritin 936. Most consistent with anemia of inflammation, no parenteral iron at this time -Transfuse for Hgb <7 or if symptomatic
[2023-09-24] MEDS: DEXTROSE 5% IN WATER 1,000 ML with SODIUM BICARB (1 MEQ/ML) 150 ML IV SCH (15:31)
[2023-09-24 16:34] LABS: Gamma Globulin 1.28 g/dL (0.70-1.50)
[2023-09-24 19:13] LABS: Anti-DNA, DS unit <1.0 IU/mL; DNA Double-Stranded Negative (Negative)
--- NOTE | 2023-09-24 20:21 | CT ---
EXAMINATION TYPE: CT abdomen pelvis wo con CT DLP: 1119.4 mGycm, Automated exposure control for dose reduction was used. DATE OF EXAM: 09/24/2023 2:44 PM COMPARISON: CT abdomen pelvis most recent from 09/24/2023. CLINICAL INDICATION:Male, 33 years old with history of Abd mass, IR planning for core biopsy; Abd mas s, IR planning for core biopsy TECHNIQUE: Axial CT abdomen pelvis wo con;Sagittal and coronal reformats were created on a separate workstation. Contrast used: mL of , (none if empty) Oral contrast used: with Oral Contrast (none if empty) FINDINGS: Oral contrast administration for evaluation of mass and bowel. There is persistent mesenteric mass me asuring up to 7.0 x 6.3 cm oral contrast and bowel do not extend through this region. Remainder of ex am is unchanged. IMPRESSION: Mesenteric mass without evidence of bowel extending through this region. This is amenable to percutan eous biopsy. IR biopsy planned for 09/25/2023
[2023-09-25] MEDS: PIPERACILLIN-TAZOBACTAM 3.375 GM in SODIUM CHLORIDE 0.9% 100 ML IVPB SCH ×3 (08:03→23:10)
[2023-09-25] MEDS: HEPARIN SODIUM,PORCINE 5,000 UNIT/ML 1 ML VIAL SQ SCH ×2 (08:03→21:10)
[2023-09-25] MEDS: prednisoLONE ACETATE 1% OPHTH DROPS 5 ML BTL RIGHT EYE SCH ×4 (08:03→21:10)
[2023-09-25] MEDS: FAMOTIDINE 20 MG/2 ML VIAL IV SCH (08:17)
[2023-09-25 09:32] LABS: BUN/Creat Ratio 5.19 Ratio (12.00-20.00); Blood Urea Nitrogen 13.5 mg/dL (9.0-27.0); Calcium 8.4 mg/dL (8.7-10.3); Carbon Dioxide 29.3 mmol/L (21.6-31.8); Chloride 101 mmol/L (96-109); Glucose 90 mg/dL (70-110); Magnesium 2.1 mg/dL (1.5-2.4); Potassium 3.5 mmol/L (3.5-5.5); Sodium 142 mmol/L (135-145)
[2023-09-25] MEDS ORDERED: POTASSIUM CHLORIDE ER 20 MEQ TAB.ER PO STA (10:19)
--- NOTE | 2023-09-25 10:21 | P.PN ---
Subjective Patient is seen in follow-up for acute kidney injury. Renal function stable. Currently on normal saline. Has been voiding. Denies gross hematuria. No vomiting or diarrhea. Scheduled for biopsy of mesenteric mass today. Vital signs are stable. General: No acute distress. HEENT: Head exam is unremarkable. LUNGS: No audible rhonchi or wheezes. HEART: Rate and Rhythm are regular. ABDOMEN: Nontender. EXTREMITITES: No edema. Objective - Vital Signs Vital signs: Vital Signs Temp 97.8 F 09/25/23 07:55 Pulse 70 09/25/23 07:55 Resp 18 09/25/23 07:55 BP 144/92 09/25/23 07:55 Pulse Ox 98 09/25/23 07:55 FiO2 Intake & Output 09/24/23 09/25/23 09/25/23 18:59 06:59 18:59 Other: # Voids 3 3 # Bowel Movements 2 1 - Labs CBC & Chem 7: 09/24/23 04:15 09/25/23 03:34 Labs: Abnormal Lab Results - Last 24 Hours (Table) 09/23/23 09/25/23 Range/Units 03:35 03:34 Creatinine 2.6 H (0.6-1.5) mg/dL Est GFR (CKD-EPI) 32 L (>=60) BUN/Creatinine Ratio 5.19 L (12.00-20.00) Ratio Calcium 8.4 L (8.7-10.3) mg/dL [id number] 0.67 H (0.10-0.40) g/dL [id number] 1.09 H (0.60-1.00) g/dL Microbiology - Last 24 Hours (Table) 09/21/23 08:00 Blood Culture - Preliminary Blood 09/21/23 08:10 Blood Culture - Preliminary Blood Assessment and Plan Plan: Assessment: 1. Acute kidney injury secondary to ATN secondary to hypovolemia from vomiting and diarrhea. Creatinine peaked at 2.6 this admission - stable at 2.6 today. Ba seline creatinine near 1. No hydronephrosis noted on CAT scan/Uls. UA for 2+ protein and large blood. Also white cells. Repeat UA showed 1+ protein with white cells and blood. No urinary retention per nurse. 2. Hypokalemia from poor intake and intracellular shifting from IV bicarb. Replaced. Better. 3. Metabolic acidosis secondary to acute kidney injury and IV fluids. Status post bicarb drip. 4. Crohn's disease. 5. Large mesenteric mass. Surgery and oncology following. Mesenteric biopsy today. Plan: Maintain normal saline. Replace potassium. F/u serologies - negative so far. UPC 1.48 g. Check serum free light chain levels. Avoid nephrotoxins. Continue to monitor renal function and urine output. Kidney biopsy will also be considered if no improvement in renal function over the next few days.
[2023-09-25 11:31] LABS: C-ANCA <1:20 Titer (<1:20)
--- NOTE | 2023-09-25 15:12 | P.PN ---
Subjective Progress Note Date: 09/25/23 CHIEF COMPLAINT: Abdominal mass HISTORY OF PRESENT ILLNESS: Patient denies any abdominal pain. He tolerated diet. Denies any nausea or vomiting. Has history of Crohn's. Patient to be evaluated by IR service for biopsy of the mesenteric mass. Afebrile. PHYSICAL EXAM: VITAL SIGNS: Reviewed. GENERAL: Well-developed in no acute distress. ABDOMEN: Soft. Nondistended. Nontender. ASSESSMENT: 1. Mesenteric mass, underlying malignancy not excluded PLAN: -Awaiting interventional radiology evaluation for percutaneous biopsy -Continue antibiotics -Surgical service on standby Physician Conduit Reamer Operator note has been reviewed by physician. Signing provider agrees with the documented findings, assessment, and plan of care. Objective - Vital Signs Vital signs: Vital Signs Temp 97.8 F 09/25/23 07:55 Pulse 70 09/25/23 07:55 Resp 18 09/25/23 07:55 BP 144/92 09/25/23 07:55 Pulse Ox 98 09/25/23 07:55 FiO2 Intake & Output 09/24/23 09/25/23 09/25/23 18:59 06:59 18:59 Other: # Voids 3 3 # Bowel Movements 2 1 - Labs CBC & Chem 7: 09/24/23 04:15 09/25/23 03:34 Labs: Abnormal Lab Results - Last 24 Hours (Table) 09/23/23 09/25/23 Range/Units 03:35 03:34 Creatinine 2.6 H (0.6-1.5) mg/dL Est GFR (CKD-EPI) 32 L (>=60) BUN/Creatinine Ratio 5.19 L (12.00-20.00) Ratio Calcium 8.4 L (8.7-10.3) mg/dL Ziljb-2-Acertbbpj 0.67 H (0.10-0.40) g/dL Ltlqo-1-Yyihnhllm 1.09 H (0.60-1.00) g/dL Microbiology - Last 24 Hours (Table) 09/21/23 08:00 Blood Culture - Preliminary Blood 09/21/23 08:10 Blood Culture - Preliminary Blood
--- NOTE | 2023-09-25 16:18 | CT ---
EXAMINATION TYPE: CT biopsy abdomen percutaneous DATE OF EXAM: 09/25/2023 2:50 PM CLINICAL INDICATION:Male, 33 years old with history of mesenteric mass; mesenteric mass COMPARISON: 09/24/2023 CT DLP: 2162 mGycm, Automated exposure control for dose reduction was used. Contrast used: mL of , none Oral contrast used: none ATTENDING: Dr. Edgard Nogueira TECHNIQUE: CT guided percutaneous mesenteric mass using coaxial method. No conscious sedation was used. One or m ore CT dose reduction strategies were utilized during this examination. Total CT dose 2162 mGycm. Tot al fluoroscopy time was 0 seconds. FINDINGS: The procedure was explained to the patient including risks of bleeding, bruising, infection, damage t o nearby organs and need for additional therapy including potential surgery. All questions were answ ered and consent was obtained. The previous studies were reviewed. The patient was placed on the CT couch in the supine position. The overlying skin was marked and prepped using sterile method. Timeout was taken per protocol. After anesthesia was administered a 17 gauge coaxial needle was introduced on the mesenteric mass. The co axial needle tip was directed into the mass with CT guidance. Multiple 18 gauge coaxial biopsies wer e then obtained. Touch prep of portions of the specimen were reviewed by pathology department [facility] during the procedure to evaluate for cellularity of the samples. The biopsy samples were sent i n appropriate containers for lab analysis. Following the procedure the needle was removed and ster ile dressing was applied to the percutaneous site. Post biopsy imaging demonstrated no evidence of h emorrhage. Patient was taken for postprocedure observation in stable condition. IMPRESSIONS: Status post percutaneous mesenteric mass biopsy as described above. Pathology results pending.
[2023-09-25 20:25] LABS: % Iron Saturation 27.78 (15.00-50.00)
[2023-09-26] MEDS: FAMOTIDINE 20 MG/2 ML VIAL IV SCH (08:29)
[2023-09-26] MEDS: HEPARIN SODIUM,PORCINE 5,000 UNIT/ML 1 ML VIAL SQ SCH ×2 (08:29→19:55)
[2023-09-26] MEDS: prednisoLONE ACETATE 1% OPHTH DROPS 5 ML BTL RIGHT EYE SCH ×4 (08:30→22:04)
[2023-09-26] MEDS: PIPERACILLIN-TAZOBACTAM 3.375 GM in SODIUM CHLORIDE 0.9% 100 ML IVPB SCH ×3 (08:30→23:53)
--- NOTE | 2023-09-26 09:00 | P.PN ---
Subjective This is a pleasant 33 years old male with past medical history of Crohn's disease on Humira and he follows up with Dr. Finch from GI but no PCP. Presents with urinary symptoms and fatigue and decreased appetite over the last 3-4 weeks. His complaining of from dark and blood in the urine. But no dysuria or urgency. No suprapubic or flank tenderness area No abdominal pain. He vomited 2 days ago, no diarrhea. He has low appetite. No chest pain or dyspnea or coughing. No headache dizziness weakness or numbness Smoking alcohol or illicit drugs. He is hemodynamically stable but he has a fever of 100.9, the tachycardia, blood pressure 152/83. Has leukocytosis of 18,000, hemoglobin 11.6, sodium 135, potassium 3.0. Creatinine Located above baseline at 2.39. 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 The mass involved distal small bowel Patient was started on normal saline with 30 mL/h and ceftriaxone 2 g. 09/22/2030 Patients with minimal symptom today, no significant abdominal pain or diarrhea. Surgery team evaluated the patient for this large abdominal mass, recommendation for IR for lymph node biopsy which is not available now and may need to be transfer to tertiary care center area Hematology oncology team on the case and they ordered some serological workup. Antibiotics was adjusted to Zosyn per infectious disease input is appreciated. Patient is evidence with acute kidney injury since admissions with creatinine stable at 2.4 but evidence with metabolic acidosis and low bicarb and patient was started on sodium bicarb today 09/23/2023 Patient lying in bed, lethargic, fully awake oriented, relaxed. No new complaints. Abdomen still distended He remains on bicarbonate drip and IV Zosyn for intra-abdominal infection Creatinine 2.6 and been monitored closely Patient will require tissue sample and We'll discuss with consultants 09/24/2023 Patient with no chest pain or dyspnea, no new complaints, no abdominal pain He is a still receiving broad-spectrum antibiotics with Zosyn with no fever and vitals are stable Repeat CAT scan of the abdomen and pelvis showing mesenteric mass with no bowel extension I discussed the case with hematology/oncology team and they're recommending tiss ue sample and then biopsy to be obtained, we will defer management of tissue sampling to their service Patient also with evidence of anemia and hemoglobin dropped to, creatinine still elevated but stable at 2.6, Iron studies requested. Objective - Vital Signs Vital signs: Vital Signs Temp 98.0 F 09/24/23 07:11 Pulse 77 09/24/23 08:00 Resp 19 09/24/23 08:00 BP 125/79 09/24/23 07:11 Pulse Ox 98 09/24/23 07:11 FiO2 Intake & Output 09/23/23 09/24/23 09/24/23 18:59 06:59 18:59 Intake Total 1999 Balance 1999 Intake: Intake, IV Titration 1200 Amount Dextrose 5% in Water 1, 1200 000 ml @ 100 mls/hr IV . [id number] [id number] with Sodium Bicarb (1 Meq/ml) 150 ml Rx#:[id number] Oral 800 Other: # Voids 5 3 # Bowel Movements 1 - Exam GENERAL: The patient is alert and oriented x3, not in any acute distress. Well developed, well nourished. HEENT: Pupils are round and equally reacting to light. EOMI. No scleral icterus. No conjunctival pallor. Normocephalic, atraumatic. No pharyngeal erythema. No thyromegaly. CARDIOVASCULAR: S1 and S2 present. No murmurs, rubs, or gallops. PULMONARY: Chest is clear to auscultation, no wheezing , no crackles. ABDOMEN: Soft, nontender, nondistended, normoactive bowel sounds. No palpable organomegaly. MUSCULOSKELETAL: No joint swelling or deformity. EXTREMITIES: No cyanosis, clubbing, or pedal edema. NEUROLOGICAL: Gross neurological examination did not reveal any focal deficits. SKIN: No rashes. no petechiae. - Labs CBC & Chem 7: 09/24/23 04:15 09/25/23 03:34 Labs: Abnormal Lab Results - Last 24 Hours (Table) 09/23/23 09/24/23 09/24/23 Range/Units 03:35 04:15 04:15 WBC 12.05 H (4.50-10.00) X 10*3/uL RBC 3.20 L (4.40-5.60) X 10*6/uL Hgb 9.2 L (13.0-17.0) g/dL Hct 27.3 L (39.6-50.0) % MPV 9.3 L (9.5-12.2) FL Immature Gran # 0.13 H (0.00-0.04) X 10*3/uL Neutrophils # 9.06 H (1.80-7.70) X 10*3/uL Monocytes # 1.04 H (0.20-1.00) X 10*3/uL Potassium 3.2 L (3.5-5.5) mmol/L Creatinine 2.5 H (0.6-1.5) mg/dL Est GFR (CKD-EPI) 34 L (>=60) BUN/Creatinine Ratio 5.60 L (12.00-20.00) Ratio Calcium 8.0 L (8.7-10.3) mg/dL Unconjugated Bilirubin >0.10 L (0.20-1.00) mg/dL AST 43 H (14-35) U/L Alkaline Phosphatase 30 L (41-126) U/L Total Protein 5.7 L (6.2-8.2) g/dL Total Protein (PEP) 6.0 L (6.2-8.2) g/dL Albumin 2.6 L (3.8-4.9) g/dL Albumin (PEP) 2.7 L (3.8-4.9) g/dL Albumin/Globulin Ratio 0.84 L (1.60-3.17) Ratio Microbiology - Last 24 Hours (Table) 09/21/23 08:00 Blood Culture - Preliminary Blood 09/21/23 08:10 Blood Culture - Preliminary Blood Assessment and Plan Assessment: Abdominal enteric mass no bowel extension, rule out malignancy versus lymphoma versus benign tumors versus others Acute kidney injury with metabolic acidosis Acute sepsis with fever and leukocytosis most likely secondary to UTI, versus abdominal infection Acute urinary tract infection versus intra-abdominal mass infection Anemia, normochromic normocytic Generalized weakness and fatigue History of Crohn's disease, not an active issue Obesity with BMI of 32.3. Plan: Continue with IV hydration and monitor kidney function Continue with Zosyn follow-up urine and blood culture Currently urologist has been consulted Several consultants on the case, swimming pool installer/oncologist , we will consult surgery team as well [facility] consult Labs and medication were reviewed.. Continue same treatment. Continue with symptomatic treatment. Resume home medication. Monitor labs and vitals. DVT and GI prophylaxis. Further recommendations as per clinical course of the patient DVT prophylaxis: Subcutaneous heparin GI Prophylaxis: Pepcid Prognosis is guarded
--- NOTE | 2023-09-26 09:02 | P.PN ---
Subjective This is a pleasant 33 years old male with past medical history of Crohn's disease on Humira and he follows up with Dr. Finch from GI but no PCP. Presents with urinary symptoms and fatigue and decreased appetite over the last 3-4 weeks. His complaining of from dark and blood in the urine. But no dysuria or urgency. No suprapubic or flank tenderness area No abdominal pain. He vomited 2 days ago, no diarrhea. He has low appetite. No chest pain or dyspnea or coughing. No headache dizziness weakness or numbness Smoking alcohol or illicit drugs. He is hemodynamically stable but he has a fever of 100.9, the tachycardia, blood pressure 152/83. Has leukocytosis of 18,000, hemoglobin 11.6, sodium 135, potassium 3.0. Creatinine Located above baseline at 2.39. 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 The mass involved distal small bowel Patient was started on normal saline with 30 mL/h and ceftriaxone 2 g. 09/22/2030 Patients with minimal symptom today, no significant abdominal pain or diarrhea. Surgery team evaluated the patient for this large abdominal mass, recommendation for IR for lymph node biopsy which is not available now and may need to be transfer to tertiary care center area Hematology oncology team on the case and they ordered some serological workup. Antibiotics was adjusted to Zosyn per infectious disease input is appreciated. Patient is evidence with acute kidney injury since admissions with creatinine stable at 2.4 but evidence with metabolic acidosis and low bicarb and patient was started on sodium bicarb today 09/23/2023 Patient lying in bed, lethargic, fully awake oriented, relaxed. No new complaints. Abdomen still distended He remains on bicarbonate drip and IV Zosyn for intra-abdominal infection Creatinine 2.6 and been monitored closely Patient will require tissue sample and We'll discuss with consultants 09/24/2023 Patient with no chest pain or dyspnea, no new complaints, no abdominal pain He is a still receiving broad-spectrum antibiotics with Zosyn with no fever and vitals are stable Repeat CAT scan of the abdomen and pelvis showing mesenteric mass with no bowel extension I discussed the case with hematology/oncology team and they're recommending tiss ue sample and then biopsy to be obtained, we will defer management of tissue sampling to their service Patient also with evidence of anemia and hemoglobin dropped to, creatinine still elevated but stable at 2.6, Iron studies requested. 09/25/2023 Patient still no abdominal pain. He is nothing by mouth for procedure today Iron study showing anemia of chronic disease No labs from today He remains on Zosyn Objective - Vital Signs Vital signs: Vital Signs Temp 97.8 F 09/25/23 13:55 Pulse 84 09/25/23 14:44 Resp 16 09/25/23 14:44 BP 134/87 09/25/23 14:44 Pulse Ox 98 09/25/23 14:44 FiO2 Intake & Output 09/24/23 09/25/23 09/25/23 18:59 06:59 18:59 Other: # Voids 3 3 # Bowel Movements 2 1 - Exam GENERAL: The patient is alert and oriented x3, not in any acute distress. Well developed, well nourished. HEENT: Pupils are round and equally reacting to light. EOMI. No scleral icterus. No conjunctival pallor. Normocephalic, atraumatic. No pharyngeal erythema. No thyromegaly. CARDIOVASCULAR: S1 and S2 present. No murmurs, rubs, or gallops. PULMONARY: Chest is clear to auscultation, no wheezing , no crackles. ABDOMEN: Soft, nontender, nondistended, normoactive bowel sounds. No palpable organomegaly. MUSCULOSKELETAL: No joint swelling or deformity. EXTREMITIES: No cyanosis, clubbing, or pedal edema. NEUROLOGICAL: Gross neurological examination did not reveal any focal deficits. SKIN: No rashes. no petechiae. - Labs CBC & Chem 7: 09/24/23 04:15 09/25/23 03:34 Labs: Abnormal Lab Results - Last 24 Hours (Table) 09/23/23 09/25/23 09/25/23 Range/Units 03:35 03:34 10:44 Creatinine 2.6 H (0.6-1.5) mg/dL Est GFR (CKD-EPI) 32 L (>=60) BUN/Creatinine Ratio 5.19 L (12.00-20.00) Ratio Calcium 8.4 L (8.7-10.3) mg/dL TIBC 144 L (228-460) UG/DL Transferrin 103.0 L (204.0-354.0) mg/dL Ferritin 870.0 H (22.0-322.0) ng/mL Hvvcr-2-Qzvoptkkw 0.67 H (0.10-0.40) g/dL Hrfpm-1-Fxvbztdqm 1.09 H (0.60-1.00) g/dL Microbiology - Last 24 Hours (Table) 09/21/23 08:00 Blood Culture - Preliminary Blood 09/21/23 08:10 Blood Culture - Preliminary Blood Assessment and Plan Assessment: Abdominal enteric mass no bowel extension, rule out malignancy versus lymphoma versus benign tumors versus others Acute kidney injury with metabolic acidosis Acute sepsis with fever and leukocytosis most likely secondary to UTI, versus abdominal infection Acute urinary tract infection versus intra-abdominal mass infection Anemia, normochromic normocytic Generalized weakness and fatigue History of Crohn's disease, not an active issue Obesity with BMI of 32.3. Plan: Continue with IV hydration and monitor kidney function Continue with Zosyn follow-up urine and blood culture We will defer tissue sample and to hematology/oncology team recommendation Several consultants on the case, lead security officer/oncologist , we will consult [facility] Labs and medication were reviewed.. Continue same treatment. Continue with symptomatic treatment. Resume home medication. Monitor labs and vitals. DVT and GI prophylaxis. Further recommendations as per clinical course of the patient DVT prophylaxis: Subcutaneous heparin GI Prophylaxis: Pepcid Prognosis is guarded
[2023-09-26 09:15] LABS: BUN/Creat Ratio 5.31 Ratio (12.00-20.00); Blood Urea Nitrogen 13.8 mg/dL (9.0-27.0); Chloride 104 mmol/L (96-109); Glucose 87 mg/dL (70-110); Magnesium 2.1 mg/dL (1.5-2.4); Potassium 4.1 mmol/L (3.5-5.5); Sodium 142 mmol/L (135-145)
[2023-09-26 09:16] LABS: Calcium 8.3 mg/dL (8.7-10.3); Carbon Dioxide 26.5 mmol/L (21.6-31.8)
[2023-09-26 09:19] LABS: Basophils % (A) 0 %; Eosinophils # (A) 0.2 k/uL (0-0.7); Eosinophils % (A) 2 %; HCT 29.6 % (39.0-53.0); Lymphocytes # (A) 1.3 k/uL (1.0-4.8); Lymphocytes % (A) 16 %; MCH 28.8 pg (25.0-35.0); MCHC 32.5 g/dL (31.0-37.0); MCV 88.5 fL (80.0-100.0); Mean Platelet Volume 7.7; Monocytes # (A) 0.6 k/uL (0-1.0); Monocytes % (A) 8 %; Neutrophils # (A) 5.8 k/uL (1.3-7.7); Neutrophils % (A) 71 %; Platelet Count 439 k/uL (150-450); RBC 3.35 m/uL (4.30-5.90); RDW 12.6 % (11.5-15.5); WBC 8.1 k/uL (3.8-10.6)
[2023-09-26 09:41] LABS: HGB 9.6 gm/dL (13.0-17.5)
--- NOTE | 2023-09-26 11:32 | P.PN ---
Subjective Patient is seen in follow-up for acute kidney injury. Renal function stable. Currently off IV fluids. Has been voiding. Denies gross hematuria. No vomiting or diarrhea. Underwent biopsy of mesenteric mass 09/25/2023. Vital signs are stable. General: No acute distress. HEENT: Head exam is unremarkable. LUNGS: No audible rhonchi or wheezes. HEART: Rate and Rhythm are regular. ABDOMEN: Nontender. EXTREMITITES: No edema. Objective - Vital Signs Vital signs: Vital Signs Temp 98.0 F 09/26/23 07:08 Pulse 71 09/26/23 07:08 Resp 18 09/26/23 07:08 BP 130/83 09/26/23 07:08 Pulse Ox 97 09/26/23 07:08 FiO2 Intake & Output 09/25/23 09/26/23 09/26/23 18:59 06:59 18:59 Other: # Voids 3 1 - Labs CBC & Chem 7: 09/26/23 05:36 09/26/23 05:36 Labs: Abnormal Lab Results - Last 24 Hours (Table) 09/25/23 09/26/23 09/26/23 Range/Units 10:44 05:36 05:36 RBC 3.35 L (4.30-5.90) m/uL Hgb 9.6 L D (13.0-17.5) gm/dL Hct 29.6 L (39.0-53.0) % Creatinine 2.6 H (0.6-1.5) mg/dL Est GFR (CKD-EPI) 32 L (>=60) BUN/Creatinine Ratio 5.31 L (12.00-20.00) Ratio Calcium 8.3 L (8.7-10.3) mg/dL Iron 40 L (65-175) UG/DL TIBC 144 L (228-460) UG/DL Transferrin 103.0 L (204.0-354.0) mg/dL Ferritin 870.0 H (22.0-322.0) ng/mL Assessment and Plan Plan: Assessment: 1. Acute kidney injury secondary to ATN secondary to hypovolemia from vomiting and diarrhea. Creatinine peaked at 2.6 this admission - stable at 2.6 today. Baseline creatinine near 1. No hydronephrosis noted on CAT scan/Uls. UA for 2+ protein and large blood. Also white cells. Repeat UA showed 1+ protein with white cells and blood. No urinary retention per nurse. 2. Hypokalemia from poor intake and intracellular shifting from IV bicarb. Replaced. Better. 3. Metabolic acidosis secondary to acute kidney injury and IV fluids. Status post bicarb drip. Resolved. 4. Crohn's disease. 5. Large mesenteric mass. Surgery and oncology following. Mesenteric biopsy done 09/25/2023. ?absecess - on antibiotics per ID. Plan: Resume normal saline. F/u serologies - negative so far. UPC 1.48 g. F/u serum free light chain levels. Avoid nephrotoxins. Continue to monitor renal function and urine output. Kidney biopsy discussed with patient and his . Will schedule outpatient in the next 1-2 weeks if no improvement in renal function. Follow up outpatient 1 week post discharge.
--- NOTE | 2023-09-26 11:55 | P.PN ---
Subjective Progress Note Date: 09/26/23 CHIEF COMPLAINT: Abdominal mass HISTORY OF PRESENT ILLNESS: Patient is status post biopsy of mesenteric mass by IR service. Patient denies any abdominal pain. He tolerated diet. Denies any nausea or vomiting. Has history of Crohn's. Afebrile. WBC 8.1 Hgb 9.6 platelets 439 sodium 142 potassium 4.1 creatinine 2.6 Acute kidney injury followed by nephrology. PHYSICAL EXAM: VITAL SIGNS: Reviewed. GENERAL: Well-developed in no acute distress. ABDOMEN: Soft. Nondistended. Nontender. ASSESSMENT: 1. Mesenteric mass, underlying malignancy not excluded. Status post biopsy PLAN: -Continue supportive care -Follow up on pathology results -Surgical service on standby Physician Hot Metal Car Operator note has been reviewed by physician. Signing provider agrees with the documented findings, assessment, and plan of care. Objective - Vital Signs Vital signs: Vital Signs Temp 98.0 F 09/26/23 07:08 Pulse 71 09/26/23 07:08 Resp 18 09/26/23 07:08 BP 130/83 09/26/23 07:08 Pulse Ox 97 09/26/23 07:08 FiO2 Intake & Output 09/25/23 09/26/23 09/26/23 18:59 06:59 18:59 Other: # Voids 3 1 - Labs CBC & Chem 7: 09/26/23 05:36 09/26/23 05:36 Labs: Abnormal Lab Results - Last 24 Hours (Table) 09/25/23 09/26/23 09/26/23 Range/Units 10:44 05:36 05:36 RBC 3.35 L (4.30-5.90) m/uL Hgb 9.6 L D (13.0-17.5) gm/dL Hct 29.6 L (39.0-53.0) % Creatinine 2.6 H (0.6-1.5) mg/dL Est GFR (CKD-EPI) 32 L (>=60) BUN/Creatinine Ratio 5.31 L (12.00-20.00) Ratio Calcium 8.3 L (8.7-10.3) mg/dL Iron 40 L (65-175) UG/DL TIBC 144 L (228-460) UG/DL Transferrin 103.0 L (204.0-354.0) mg/dL Ferritin 870.0 H (22.0-322.0) ng/mL
[2023-09-26] MEDS: SODIUM CHLORIDE 0.9% 1,000 ML IV SCH (13:02)
--- NOTE | 2023-09-26 16:41 | P.PN ---
Subjective Progress Note Date: 09/25/23 Principal diagnosis: Reason for follow-up is fever and possible infected mesenteric mass Patient is a 33-year-old male with a past medical his significant for Crohn's disease in this patient has been on Humira patient presented to hospital concerning for abdominal pain and decreased urine output patient noticed to be febrile he did have a CT abdominal pelvis with large mesenteric mass lower abdominal with some surrounding irregular density and small foci of gas conc erning for possible tumor necrosis versus infection On today's evaluation that is 09/25/2023, the patient continues to be afebrile, the patient is breathing comfortably on room air patient denies having any chest pain shortness of breath and no cough denies any nausea vomiting no abdominal pain no diarrhea no urinary symptoms feeling better. Patient white count of 12.05 as of yesterday creatinine is 2.6 Objective - Vital Signs Vital signs: Vital Signs Temp 97.8 F 09/25/23 07:55 Pulse 70 09/25/23 07:55 Resp 18 09/25/23 07:55 BP 144/92 09/25/23 07:55 Pulse Ox 98 09/25/23 07:55 FiO2 Intake & Output 09/24/23 09/25/23 09/25/23 18:59 06:59 18:59 Other: # Voids 3 3 # Bowel Movements 2 1 - Exam GENERAL DESCRIPTION: Middle-age male lying in bed in no distress RESPIRATORY SYSTEM: Unlabored breathing , decreased breath sounds at bases HEART: S1 S2 regular rate and rhythm , ABDOMEN: Soft , no tenderness EXTREMITIES: No edema feet - Labs CBC & Chem 7: 09/26/23 05:36 09/26/23 05:36 Labs: Abnormal Lab Results - Last 24 Hours (Table) 09/23/23 09/25/23 Range/Units 03:35 03:34 Creatinine 2.6 H (0.6-1.5) mg/dL Est GFR (CKD-EPI) 32 L (>=60) BUN/Creatinine Ratio 5.19 L (12.00-20.00) Ratio Calcium 8.4 L (8.7-10.3) mg/dL Zxrhe-8-Pkgraiuae 0.67 H (0.10-0.40) g/dL Dncpl-3-Lxbzoltxi 1.09 H (0.60-1.00) g/dL Microbiology - Last 24 Hours (Table) 09/21/23 08:00 Blood Culture - Preliminary Blood 09/21/23 08:10 Blood Culture - Preliminary Blood Assessment and Plan (1) Abdominal mass Current Visit: Yes Status: Acute Priority: High Code(s): R19.00 - INTRA- ABD AND PELVIC SWELLING, MASS AND LUMP, UNSP SITE SNOMED Code(s): 663842942 (2) Fever Current Visit: Yes Status: Acute Code(s): R50.9 - FEVER, UNSPECIFIED SNOM ED Code(s): 766739481 (3) Leukocytosis Current Visit: Yes Status: Acute Code(s): D72.829 - ELEVATED WHITE BLOOD CELL COUNT, UNSPECIFIED SNOMED Code(s): 883091041 Plan: 1patient presented to hospital with decreased urine output in this patient have a fever tachycardia elevated white count admitted currently for SIRS with evidence of large mesenteric mass lower abdominal with concern for possible malignancy there was concern for small surrounding area with internal air concerning for possible abscess, will need to cover for the enteric gram- negative both anaerobes and anaerobes to be the likely pathogen 2-blood culture has been obtained , Patient did have CRP of 15.40 Pro-Gerson 0.88. 3patient is scheduled for IR biopsy of this mesenteric mass along with cultures we will continue the patient on Zosyn and monitor his clinical course closely Dictation was produced using [employer] dictation software. please excuse any grammatical, word or spelling errors. Time with Patient: Less than 30
--- NOTE | 2023-09-26 16:43 | P.PN ---
Subjective Progress Note Date: 09/26/23 Principal diagnosis: Reason for follow-up is fever and possible infected mesenteric mass Patient is a 33-year-old male with a past medical his significant for Crohn's disease in this patient has been on Humira patient presented to hospital concerning for abdominal pain and decreased urine output patient noticed to be febrile he did have a CT abdominal pelvis with large mesenteric mass lower abdominal with some surrounding irregular density and small foci of gas conc erning for possible tumor necrosis versus infection On today's evaluation that is 09/26/2023, the patient remains to be afebrile, the patient is breathing comfortably on room air patient denies chest pain shortness of breath or cough, the patient denies any nausea vomiting no abdominal pain no diarrhea no urinary symptoms, no new symptoms Patient white count normalized to 8.1, creatinine is 2.6, blood culture negative Objective - Vital Signs Vital signs: Vital Signs Temp 98.0 F 09/26/23 07:08 Pulse 71 09/26/23 07:08 Resp 18 09/26/23 07:08 BP 130/83 09/26/23 07:08 Pulse Ox 97 09/26/23 07:08 FiO2 Intake & Output 09/25/23 09/26/23 09/26/23 18:59 06:59 18:59 Other: # Voids 3 1 - Exam GENERAL DESCRIPTION: Middle-age male lying in bed in no distress RESPIRATORY SYSTEM: Unlabored breathing , decreased breath sounds at bases HEART: S1 S2 regular rate and rhythm , ABDOMEN: Soft , no tenderness EXTREMITIES: No edema feet - Labs CBC & Chem 7: 09/26/23 05:36 09/26/23 05:36 Labs: Abnormal Lab Results - Last 24 Hours (Table) 09/25/23 09/26/23 09/26/23 Range/Units 10:44 05:36 05:36 RBC 3.35 L (4.30-5.90) m/uL Hgb 9.6 L D (13.0-17.5) gm/dL Hct 29.6 L (39.0-53.0) % Creatinine 2.6 H (0.6-1.5) mg/dL Est GFR (CKD-EPI) 32 L (>=60) BUN/Creatinine Ratio 5.31 L (12.00-20.00) Ratio Calcium 8.3 L (8.7-10.3) mg/dL Iron 40 L (65-175) UG/DL TIBC 144 L (228-460) UG/DL Transferrin 103.0 L (204.0-354.0) mg/dL Ferritin 870.0 H (22.0-322.0) ng/mL Assessment and Plan (1) Abdominal mass Current Visit: Yes Status: Acute Priority: High Code(s): R19.00 - INTRA-AB D AND PELVIC SWELLING, MASS AND LUMP, UNSP SITE SNOMED Code(s): 346942884 (2) Fever Current Visit: Yes Status: Acute Code(s): R50.9 - FEVER, UNSPECIFIED SNOMED Code(s): 389779652 (3) Leukocytosis Current Visit: Yes Status: Acute Code(s): D72.829 - ELEVATED WHITE BLOOD CELL COUNT, UNSPECIFIED SNOMED Code(s): 311077986 Plan: 1patient presented to hospital with decreased urine output in this patient have a fever tachycardia elevated white count admitted currently for SIRS with evidence of large mesenteric mass lower abdominal with concern for possible malignancy there was concern for small surrounding area with internal air concerning for possible abscess, will need to cover for the enteric gram- negative both anaerobes and anaerobes to be the likely pathogen 2-blood culture has been obtained , Patient did have CRP of 15.40 Pro-Gerson 0.88. 3patient is s/p IR biopsy of this mesenteric mass unfortunately no cultures were done, we will continue the patient on Zosyn and if remains to be afebrile white count remains to be normal will consider Augmentin on discharge this was discussed with CELLULAR PHONE REPAIRER for admitting team Dictation was produced using [employer] dictation software. please excuse any gr ammatical, word or spelling errors. Time with Patient: Less than 30
--- NOTE | 2023-09-26 17:45 | P.PN ---
Subjective Progress Note Date: 09/26/23 No acute events. Reports improvement in symptoms. S/p biopsy, results pending Objective - Vital Signs Vital signs: Vital Signs Temp 97.6 F 09/26/23 13:45 Pulse 81 09/26/23 13:45 Resp 18 09/26/23 13:45 BP 112/62 09/26/23 13:45 Pulse Ox 95 09/26/23 13:45 FiO2 Intake & Output 09/25/23 09/26/23 09/26/23 18:59 06:59 18:59 Other: # Voids 3 1 - Constitutional General appearance: Present: no acute distress - EENT Eyes: Present: anicteric sclerae, EOMI ENT: Present: hearing grossly normal - Respiratory Details: breathing is even and unlabored - Cardiovascular Details: well perfused - Integumentary Integumentary: Absent: cyanotic - Neurologic Neurologic: Present: CNII-XII intact - Musculoskeletal Musculoskeletal: Present: strength equal bilaterally - Psychiatric Psychiatric: Present: A&O x's 3 - Labs CBC & Chem 7: 09/26/23 05:36 09/26/23 05:36 Labs: Abnormal Lab Results - Last 24 Hours (Table) 09/26/23 09/26/23 Range/Units 05:36 05:36 RBC 3.35 L (4.30-5.90) m/uL Hgb 9.6 L D (13.0-17.5) gm/dL Hct 29.6 L (39.0-53.0) % Creatinine 2.6 H (0.6-1.5) mg/dL Est GFR (CKD-EPI) 32 L (>=60) BUN/Creatinine Ratio 5.31 L (12.00-20.00) Ratio Calcium 8.3 L (8.7-10.3) mg/dL Microbiology - Last 24 Hours (Table) 09/21/23 08:00 Blood Culture - Final Blood 09/21/23 08:10 Blood Culture - Final Blood Assessment and Plan (1) SHELIA (acute kidney injury) Current Visit: Yes Status: Acute Priority: High Code(s): N17.9 - ACUTE KIDNEY FAILURE, UNSPECIFIED SNOMED Code(s): 07612185 (2) Abdominal mass Current Visit: Yes Status: Acute Priority: High Code(s): R19.00 - INTRA- ABD AND PELVIC SWELLING, MASS AND LUMP, UNSP SITE SNOMED Code(s): 738370918 (3) Anemia Current Visit: Yes Status: Acute Priority: Medium Code(s): D64.9 - ANEMIA, UNSPECIFIED SNOMED Code(s): 462195984 Plan: Mesenteric mass: -History of Crohn's disease on Humira. Follows with Dr. Finch. Patient presented to the emergency room with complaints of decreased urinary output, dark colored urine, fatigue and decreased appetite over the last 1 month. Also complaining of fatigue and decreased appetite. He reports approximate 10 pound weight loss over the last 1 month as well as night sweats. Denies personal or family history of cancer. Denies EtOH abuse and smoking. -Upon admission CT abdomen pelvis w/o revealed large mesenteric mass in the lower abdomen/upper pelvis measuring up to 9.6 cm with several surrounding nod ular density suggesting metastasis and/or reactive nodes. The mass appears predominantly solid however with several small foci of internal gas. The mass involves the distal small bowel loop, consideration for fistulization. Findings and concerns of malgincancy were discussed with patient and family. Patient was agreeable to proceed with further testing/imaging -General surgery consulted. They recommend GI and IR consult, however these services are limited at this time, and they are recommending transfer to tertiary center. ID consulted for evaluation for abx recommendations for possible infection vs necrosis -IR consult placed for mesenteric biopsy with flow cytometry. Repeat CT AP with oral contrast revealed mesenteric mass without bowel extending to this area. S/p mesenteric biopsy, path pending -LDH normal. CEA normal, CA-125 mildly elevated, nonspecific. -Once kidney function improves will need to obtain CT CAP w/ contrast for staging. If done outpt will obtain PET CT Pt and family updated on POC SHELIA -No known history of kidney disease, began experiencing decreased urinary output and dark colored urine over the last 1 month -Creatinine 2.6 today, GFR 32 -SPEP and Immunofixation negative -Nephrology following Anemia: -Mild anemia noted, hgb noted at 11.1, previously in the 13 range -Anemia workup negative for nutritional deficiencies -Likely related to anemia of inflammation -Will continue to monitor Pt is cleared from hem/onc standpoint for discharge. Clinic f/u will be scheduled upon discharge
[2023-09-26 19:18] LABS: HIV 2 AB Non-Reactive (Non-Reactive); HIV AB P24 Non-Reactive (Non-Reactive); HIV P24 AG Non-Reactive (Non-Reactive)
--- NOTE | 2023-09-26 22:13 | P.PN ---
Subjective Progress Note Date: 09/26/23 Patient evaluated today on the medical floor. S/P percutaneous core biopsy of the messenteric mass pending pathology. Oncology with plans to f/u outpatient. Unsure whether cultures were sent from IR. Discussed with ID today and patient will continue on IV antibiotics. Currently not reporting any abdominal pain. Blood culture and urine culture negative so far. Creatinine at 2.6 again. HIV panel negative. Review of Systems Constitutional: Denied any fatigue denied any fever. Cardio vascular: denied any chest pain, palpitations Gastrointestinal: denied any nausea, vomiting, diarrhea Pulmonary: Denied any shortness of breath cough Neurologic denied any new focal deficits All inpatient medications were reviewed and appropriate changes in these medications as dictated in the interval history and assessment and plan PHYSICAL EXAMINATION: GENERAL: The patient is alert and oriented x3, not in any acute distress. Well developed, well nourished. HEENT: Pupils are round and equally reacting to light. EOMI. No scleral icterus. No conjunctival pallor. Normocephalic, atraumatic. No pharyngeal erythema. No thyromegaly. CARDIOVASCULAR: S1 and S2 present. No murmurs, rubs, or gallops. PULMONARY: Chest is clear to auscultation, no wheezing or crackles. ABDOMEN: Soft, nontender, nondistended, normoactive bowel sounds. No palpable organomegaly. MUSCULOSKELETAL: No joint swelling or deformity. EXTREMITIES: No cyanosis, clubbing, or pedal edema. NEUROLOGICAL: Gross neurological examination did not reveal any focal deficits. SKIN: No rashes. Assessment Abdominal enteric mass no bowel extension, rule out malignancy versus lymphoma versus benign tumors versus others s/p biopsy Acute kidney injury Metabolic acidosis secondary to the SHELIA improved with bicarb gtt Acute sepsis with fever and leukocytosis most likely secondary to UTI, versus abdominal infection Acute urinary tract infection versus intra-abdominal mass infection Anemia, normochromic normocytic Generalized weakness and fatigue History of Crohn's disease, not an active issue Obesity with BMI of 32.3. GI prophylaxis Full Code Plan Continue on IV zosyn, ID following and plans to monitor labs in the AM and possible transition to oral antibiotics. Pending pathology from the core bx and plans to follow up with oncology outpatient Nephrology following Patient to undergoo renal biopsy outpatient in 1 to 2 weeks if renal function has not improved Repeat labs in AM Possible D/C home in the next 24 hours The impression and plan of care has been dictated by Leida Angeles Nurse Practitioner as directed. Dr. America MD I have performed a history and physical examination and medical decision making of this patient, discussed the same with the dictator, and agree with the dictators assessment and plan as written, documented as a scribe. Based on total visit time, I have performed more than 50% of this visit. Objective - Vital Signs Vital signs: Vital Signs Temp 97.6 F 09/26/23 13:45 Pulse 81 09/26/23 13:45 Resp 18 09/26/23 13:45 BP 112/62 09/26/23 13:45 Pulse Ox 95 09/26/23 13:45 FiO2 Intake & Output 09/25/23 09/26/23 09/26/23 18:59 06:59 18:59 Other: # Voids 3 1 - Labs CBC & Chem 7: 09/26/23 05:36 09/26/23 05:36 Labs: Abnormal Lab Results - Last 24 Hours (Table) 09/25/23 09/26/23 09/26/23 Range/Units 10:44 05:36 05:36 RBC 3.35 L (4.30-5.90) m/uL Hgb 9.6 L D (13.0-17.5) gm/dL Hct 29.6 L (39.0-53.0) % Creatinine 2.6 H (0.6-1.5) mg/dL Est GFR (CKD-EPI) 32 L (>=60) BUN/Creatinine Ratio 5.31 L (12.00-20.00) Ratio Calcium 8.3 L (8.7-10.3) mg/dL Iron 40 L (65-175) UG/DL Assessment and Plan Time with Patient: Less than 30
[2023-09-27] MEDS: SODIUM CHLORIDE 0.9% 1,000 ML IV SCH (04:53)
[2023-09-27 08:15] VITALS: RESP 18
[2023-09-27] MEDS: prednisoLONE ACETATE 1% OPHTH DROPS 5 ML BTL RIGHT EYE SCH (08:25)
[2023-09-27] MEDS: PIPERACILLIN-TAZOBACTAM 3.375 GM in SODIUM CHLORIDE 0.9% 100 ML IVPB SCH (08:25)
[2023-09-27] MEDS: FAMOTIDINE 20 MG/2 ML VIAL IV SCH (08:26)
[2023-09-27] MEDS: HEPARIN SODIUM,PORCINE 5,000 UNIT/ML 1 ML VIAL SQ SCH (08:26)
[2023-09-27 08:41] LABS: Basophils # (A) 0.05 X 10*3/uL (0.00-0.10); Basophils % (A) 0.6 %; Eosinophils # (A) 0.13 X 10*3/uL (0.04-0.35); Eosinophils % (A) 1.5 %; HCT 30.1 % (39.6-50.0); HGB 9.6 g/dL (13.0-17.0); Lymphocytes # (A) 1.57 X 10*3/uL (0.90-5.00); Lymphocytes % (A) 17.5 %; MCHC 31.9 g/dL (32.0-37.0); MCV 87.8 FL (80.0-97.0); Mean Platelet Volume 8.9 FL (9.5-12.2); Monocytes # (A) 0.57 X 10*3/uL (0.20-1.00); Monocytes % (A) 6.4 %; NRBC Per 100 WBC 0 X 10*3/uL (0.00-0.01); Neutrophils # (A) 6.58 X 10*3/uL (1.80-7.70); Neutrophils % (A) 73.3 %; Platelet Count 400 X 10*3/uL (140-440); RBC 3.43 X 10*6/uL (4.40-5.60); RDW 12.4 % (11.5-14.5); WBC 8.96 X 10*3/uL (4.50-10.00)
[2023-09-27 08:49] LABS: ALT 65 U/L (10-49); AST 47 U/L (14-35); Albumin 2.8 g/dL (3.8-4.9); Alkaline Phosphatase 32 U/L (41-126); BUN/Creat Ratio 5.19 Ratio (12.00-20.00); Bilirubin, Conjugated <0.20 mg/dL (0.20-0.40); Bilirubin,Unconjugated >0.10 mg/dL (0.20-1.00); Calcium 8.4 mg/dL (8.7-10.3); Chloride 104 mmol/L (96-109); Globulin 3.1 g/dL (1.6-3.3); Glucose 91 mg/dL (70-110); Magnesium 1.9 mg/dL (1.5-2.4); Potassium 3.5 mmol/L (3.5-5.5); Sodium 142 mmol/L (135-145); Total Bilirubin 0.3 mg/dL (0.3-1.2); Total Protein 5.9 g/dL (6.2-8.2)
[2023-09-27 10:59] LABS: Free Kappa Lt Chain Qnt, Serum 7.66 mg/dL (0.33-1.94); Free Lambda Lt Chain Qnt, Seru 7.53 mg/dL (0.57-2.63)
--- NOTE | 2023-09-27 11:16 | P.PN ---
Subjective Progress Note Date: 09/27/23 CHIEF COMPLAINT: Abdominal mass HISTORY OF PRESENT ILLNESS: Patient is status post biopsy of mesenteric mass by IR service. Patient denies any abdominal pain. He tolerated diet. Denies any nausea or vomiting. Has history of Crohn's. Afebrile. WBC 8.96 hgb 9.6 plt 400 creatinine 2.7 PHYSICAL EXAM: VITAL SIGNS: Reviewed. GENERAL: Well-developed in no acute distress. ABDOMEN: Soft. Nondistended. Nontender. ASSESSMENT: 1. Mesenteric mass, underlying malignancy not excluded. Status post biopsy PLAN: -Continue supportive care -Follow up on pathology results -Patient can be discharged from surgical standpoint when medically cleared Physician Jig Maker note has been reviewed by physician. Signing provider agrees with the documented findings, assessment, and plan of care. Objective - Vital Signs Vital signs: Vital Signs Temp 97.8 F 09/27/23 06:55 Pulse 82 09/27/23 06:55 Resp 18 09/27/23 06:55 BP 124/75 09/27/23 06:55 Pulse Ox 96 09/27/23 06:55 FiO2 Intake & Output 09/26/23 09/27/23 09/27/23 18:59 06:59 18:59 Intake Total 820 Balance 820 Intake: Intake, IV Titration 820 Amount Piperacillin-Tazobactam 3 100 .375 gm In Sodium Chloride 0.9% 100 ml @ 25 mls/hr IVPB Q8HR [facility] Rx# :[id number] Sodium Chloride 0.9% 1, 720 000 ml @ 60 mls/hr IV . [id number] [facility] Rx#:[id number] Other: # Voids 1 - Labs CBC & Chem 7: 09/27/23 06:12 09/27/23 06:12 Labs: Abnormal Lab Results - Last 24 Hours (Table) 09/27/23 09/27/23 Range/Units 06:12 06:12 RBC 3.43 L (4.40-5.60) X 10*6/uL Hgb 9.6 L (13.0-17.0) g/dL Hct 30.1 L (39.6-50.0) % MCHC 31.9 L (32.0-37.0) g/dL MPV 8.9 L (9.5-12.2) FL Immature Gran # 0.06 H (0.00-0.04) X 10*3/uL Creatinine 2.7 H (0.6-1.5) mg/dL Est GFR (CKD-EPI) 31 L (>=60) BUN/Creatinine Ratio 5.19 L (12.00-20.00) Ratio Calcium 8.4 L (8.7-10.3) mg/dL Unconjugated Bilirubin >0.10 L (0.20-1.00) mg/dL AST 47 H (14-35) U/L ALT 65 H (10-49) U/L Alkaline Phosphatase 32 L (41-126) U/L Total Protein 5.9 L (6.2-8.2) g/dL Albumin 2.8 L (3.8-4.9) g/dL Albumin/Globulin Ratio 0.90 L (1.60-3.17) Ratio Microbiology - Last 24 Hours (Table) 09/21/23 08:00 Blood Culture - Final Blood 09/21/23 08:10 Blood Culture - Final Blood
[2023-09-27] MEDS ORDERED: POTASSIUM CHLORIDE ER 20 MEQ TAB.ER PO STA (11:20)
--- NOTE | 2023-09-27 11:25 | P.PN ---
Subjective Patient is seen in follow-up for acute kidney injury. Renal function stable. Currently on normal saline. Has been voiding. Denies gross hematuria. No vomiting or diarrhea. Underwent biopsy of mesenteric mass 09/25/2023. Vital signs are stable. General: No acute distress. HEENT: Head exam is unremarkable. LUNGS: No audible rhonchi or wheezes. HEART: Rate and Rhythm are regular. ABDOMEN: Nontender. EXTREMITITES: No edema. Objective - Vital Signs Vital signs: Vital Signs Temp 97.8 F 09/27/23 06:55 Pulse 82 09/27/23 06:55 Resp 18 09/27/23 06:55 BP 124/75 09/27/23 06:55 Pulse Ox 96 09/27/23 06:55 FiO2 Intake & Output 09/26/23 09/27/23 09/27/23 18:59 06:59 18:59 Intake Total 820 Balance 820 Intake: Intake, IV Titration 820 Amount Piperacillin-Tazobactam 3 100 .375 gm In Sodium Chloride 0.9% 100 ml @ 25 mls/hr IVPB Q8HR [facility] Rx# :[id number] Sodium Chloride 0.9% 1, 720 000 ml @ 60 mls/hr IV . [id number] [facility] Rx#:[id number] Other: # Voids 1 - Labs CBC & Chem 7: 09/27/23 06:12 09/27/23 06:12 Labs: Abnormal Lab Results - Last 24 Hours (Table) 09/25/23 09/27/23 09/27/23 Range/Units 10:44 06:12 06:12 RBC 3.43 L (4.40-5.60) X 10*6/uL Hgb 9.6 L (13.0-17.0) g/dL Hct 30.1 L (39.6-50.0) % MCHC 31.9 L (32.0-37.0) g/dL MPV 8.9 L (9.5-12.2) FL Immature Gran # 0.06 H (0.00-0.04) X 10*3/uL Creatinine 2.7 H (0.6-1.5) mg/dL Est GFR (CKD-EPI) 31 L (>=60) BUN/Creatinine Ratio 5.19 L (12.00-20.00) Ratio Calcium 8.4 L (8.7-10.3) mg/dL Unconjugated Bilirubin >0.10 L (0.20-1.00) mg/dL AST 47 H (14-35) U/L ALT 65 H (10-49) U/L Alkaline Phosphatase 32 L (41-126) U/L Total Protein 5.9 L (6.2-8.2) g/dL Albumin 2.8 L (3.8-4.9) g/dL Albumin/Globulin Ratio 0.90 L (1.60-3.17) Ratio Free Cooter LC, Quant 7.66 H (0.33-1.94) mg/dL Free Lambda LC, Quant 7.53 H (0.57-2.63) mg/dL Microbiology - Last 24 Hours (Table) 09/21/23 08:00 Blood Culture - Final Blood 09/21/23 08:10 Blood Culture - Final Blood Assessment and Plan Plan: Assessment: 1. Acute kidney injury secondary to ATN secondary to hypovolemia from vomiting and diarrhea. Creatinine peaked at 2.6 this admission - stable at 2.6 today. Baseline creatinine near 1. No hydronephrosis noted on CAT scan/Uls. UA for 2+ protein and large blood. Also white cells. Repeat UA showed 1+ protein with white cells and blood. No urinary retention per nurse. 2. Hypokalemia from poor intake and intracellular shifting from IV bicarb. Replaced. Better. 3. Metabolic acidosis secondary to acute kidney injury and IV fluids. Status post bicarb drip. Resolved. 4. Crohn's disease. 5. Large mesenteric mass. Surgery and oncology following. Mesenteric biopsy done 09/25/2023. ?abscess - on antibiotics per ID. Plan: Maintain normal saline. Serologies negative. UPC 1.48 g. Avoid nephrotoxins. Continue to monitor renal function and urine output. Kidney biopsy discussed with patient and his . Patient refusing to get it done this admission. Wi discuss and schedule outpatient in the next 1-2 weeks if patient agreeable. Follow up outpatient 1 week post discharge.
[2023-09-27 13:35] VITALS: BP 134/85; PULSE 100; TEMP 98.4
[2023-09-27 15:33] VITALS: BMI 32.3
--- NOTE | 2023-09-27 16:33 | P.PN ---
Subjective Progress Note Date: 09/27/23 Principal diagnosis: Reason for follow-up is fever and possible infected mesenteric mass Patient is a 33-year-old male with a past medical his significant for Crohn's disease in this patient has been on Humira patient presented to hospital concerning for abdominal pain and decreased urine output patient noticed to be febrile he did have a CT abdominal pelvis with large mesenteric mass lower abdominal with some surrounding irregular density and small foci of gas conc erning for possible tumor necrosis versus infection On today's evaluation that is 09/27/2023, the patient denies any fever or any chills, he is breathing comfortably on room air patient denies having any chest pain shortness of the cough no nausea vomiting no abdominal pain or diarrhea feeling better wants to go home. The patient did have white count of 8.96, creatinine is 2.7 Objective - Vital Signs Vital signs: Vital Signs Temp 97.8 F 09/27/23 06:55 Pulse 82 09/27/23 06:55 Resp 18 09/27/23 06:55 BP 124/75 09/27/23 06:55 Pulse Ox 96 09/27/23 06:55 FiO2 Intake & Output 09/26/23 09/27/23 09/27/23 18:59 06:59 18:59 Intake Total 820 Balance 820 Intake: Intake, IV Titration 820 Amount Piperacillin-Tazobactam 3 100 .375 gm In Sodium Chloride 0.9% 100 ml @ 25 mls/hr IVPB Q8HR [facility] Rx# :[id number] Sodium Chloride 0.9% 1, 720 000 ml @ 60 mls/hr IV . [id number] [facility] Rx#:[id number] Other: # Voids 1 - Exam GENERAL DESCRIPTION: Middle-age male lying in bed in no distress RESPIRATORY SYSTEM: Unlabored breathing , decreased breath sounds at bases HEART: S1 S2 regular rate and rhythm , ABDOMEN: Soft , no tenderness EXTREMITIES: No edema feet - Labs CBC & Chem 7: 09/27/23 06:12 09/27/23 06:12 Labs: Abnormal Lab Results - Last 24 Hours (Table) 09/27/23 09/27/23 Range/Units 06:12 06:12 RBC 3.43 L (4.40-5.60) X 10*6/uL Hgb 9.6 L (13.0-17.0) g/dL Hct 30.1 L (39.6-50.0) % MCHC 31.9 L (32.0-37.0) g/dL MPV 8.9 L (9.5-12.2) FL Immature Gran # 0.06 H (0.00-0.04) X 10*3/uL Creatinine 2.7 H (0.6-1.5) mg/dL Est GFR (CKD-EPI) 31 L (>=60) BUN/Creatinine Ratio 5.19 L (12.00-20.00) Ratio Calcium 8.4 L (8.7-10.3) mg/dL Unconjugated Bilirubin >0.10 L (0.20-1.00) mg/dL AST 47 H (14-35) U/L ALT 65 H (10-49) U/L Alkaline Phosphatase 32 L (41-126) U/L Total Protein 5.9 L (6.2-8.2) g/dL Albumin 2.8 L (3.8-4.9) g/dL Albumin/Globulin Ratio 0.90 L (1.60-3.17) Ratio Microbiology - Last 24 Hours (Table) 09/21/23 08:00 Blood Culture - Final Blood 09/21/23 08:10 Blood Culture - Final Blood Assessment and Plan (1) Abdominal mass Current Visit: Yes Status: Acute Priority: High Code(s): R19.00 - INTRA- ABD AND PELVIC SWELLING, MASS AND LUMP, UNSP SITE SNOMED Code(s): 212671549 (2) Fever Current Visit: Yes Status: Acute Code(s): R50.9 - FEVER, UNSPECIFIED SNOMED Code(s): 324358978 (3) Leukocytosis Current Visit: Yes Status: Acute Code(s): D72.829 - ELEVATED WHITE BLOOD CELL COUNT, UNSPECIFIED SNOMED Code(s): 052901276 Plan: 1patient presented to hospital with decreased urine output in this patient have a fever tachycardia elevated white count admitted currently for SIRS with evidence of large mesenteric mass lower abdominal with concern for possible malignancy there was concern for small surrounding area with internal air concerning for possible abscess, will need to cover for the enteric gram-ne gative both anaerobes and anaerobes to be the likely pathogen 2-blood culture has been obtained , Patient did have CRP of 15.40 Pro-Gerson 0.88. 3patient is s/p IR biopsy of this mesenteric mass unfortunately no cultures were done, 4patient did have overall normalization of his white count with the Zosyn unfortunately we do not have any culture data and the patient insisted on going home he will be given Augmentin for 2 weeks advised if any worsening abdominal pain develops any fever that he does come back to the hospital right away multiple question concern answered Dictation was produced using [employer] dictation software. please excuse any grammatical, word or spelling errors.
--- NOTE | 2023-09-29 15:46 | P.DS ---
Providers Date of admission: 09/21/23 12:47 Attending physician: Brian Garcia MD Consults: 09/21/23 12:47 Consult Physician Routine Consulting Provider: Elroy Langley Consult Reason/Comments: Abdominal mass Do you want consulting provider notified?: Yes 09/21/23 14:22 Consult Physician Routine Consulting Provider: Daniel Erickson Consult Reason/Comments: abd mass Do you want consulting provider notified?: Yes 09/22/23 11:23 Consult Physician Routine Consulting Provider: Freedom Mcmullen Consult Reason/Comments: raven Do you want consulting provider notified?: Already Contacted 09/22/23 14:21 Consult Physician Routine Consulting Provider: Ayan Pham Consult Reason/Comments: 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 Do you want consulting provider notified?: Yes Primary care physician: Stated None Hospital Course: Final Diagnosis Abdominal enteric mass no bowel extension, rule out malignancy versus lymphoma versus benign tumors versus others s/p biopsy Acute kidney injury Metabolic acidosis secondary to the RAVEN improved with bicarb gtt Acute sepsis with fever and leukocytosis most likely secondary to UTI, versus abdominal infection Acute urinary tract infection versus intra-abdominal mass infection Anemia, normochromic normocytic Generalized weakness and fatigue History of Crohn's disease, not an active issue Discharge Disposition Patient is stable for discharge home. Overall guarded prognosis he is pending core biopsy results for the mesenteric mass and recommending to follow up closely with oncology, general surgery and his PCP. Patient needs to follow up with nephrology in 1 week and recommending to repeat a BMP and magnesium level in 2 to 3 days. Patient Recommended to stop humira on discharge. He may need kidney biopsy if labs are not improving. Hospital Course This is a pleasant 33 years old male with past medical history of Crohn's disease on Humira and he follows up with Dr. Finch from GI but no PCP. Presents with urinary symptoms and fatigue and decreased appetite over the last 3-4 weeks. His complaining of from dark and blood in the urine. But no dysuria or urgency. No suprapubic or flank tenderness area No abdominal pain. He vomited 2 days ago, no diarrhea. He has low appetite. No chest pain or dyspnea or coughing. No headache dizziness weakness or numbness. Denies Smoking alcohol or illicit drugs. He had elevated white count of 18 and was tachycardic on admission. 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 The mass involved distal small bowel. Was started on IV ceftriaxone and then changed to zosyn. Patient was admitted to the hospital with consult placed to hematology oncology and ID. and general surgery. Patient is status post core biopsy with IR, had a CT guided biopsy pathology is still pending. His creatinine remains elevated this admission aroound 2.6, was treated with bicarb gtt nephrology recommending possible kidney biopsy outpatient in 1 to 2 weeks if kidney function not improving. LFTs are mildly elevated. HIV panel negative. Hemodynamically he is stable. He is not having any shortness of breath, no nausea vomiting or diarrhea. Please see medication reconciliation for a list of current medication. Thank you for allowing us to participate in the care of this patient. The impression and plan of care has been dictated by Leida Angeles, Nurse Practitioner as directed. Dr. America MD I have performed a history and physical examination and medical decision making of this patient, discussed the same with the dictator, and agree with the dictators assessment and plan as written, documented as a scribe. Based on total visit time, I have performed more than 50% of this visit. Patient Condition at Discharge: Stable Plan - Discharge Summary Discharge Rx Participant: No New Discharge Prescriptions: New Amoxic-Pot Clav 875-125Mg [Augmentin 875-125] 1 tab PO BID 10 Days #20 tab Continue Loratadine [Claritin] 10 mg PO DAILY PRN PRN Reason: Allergy Symptoms prednisoLONE ACETATE 1% OPHTH [Pred Forte 1%] 1 drops RIGHT EYE QID Dicyclomine [Bentyl] 10 mg PO TID PRN PRN Reason: Gi Upset Discontinued Adalimumab [Humira Pen] 40 mg SQ Q14D Discharge Medication List Loratadine [Claritin] 10 mg PO DAILY PRN 02/18/19 [History] Dicyclomine [Bentyl] 10 mg PO TID PRN 09/21/23 [History] prednisoLONE ACETATE 1% OPHTH [Pred Forte 1%] 1 drops RIGHT EYE QID 09/21/23 [H istory] Amoxic-Pot Clav 875-125Mg [Augmentin 875-125] 1 tab PO BID 10 Days #20 tab 09/27/23 [Rx] Follow up Appointment(s)/Referral(s): Daniel Erickson MD [Medical Doctor] - 1 Week (General Surgery ) Bozena Steele MD [STAFF PHYSICIAN] - 10/08/23 9:30 am (Oncologist ) Marni Finch MD [STAFF PHYSICIAN] - 1 Week (GI specialist ) None,Stated [Primary Care Provider] - 1-2 days Freedom Mcmullen DO [STAFF PHYSICIAN] - 10/15/23 11:20 am (nephrology ) Ayan Pham MD [STAFF PHYSICIAN] - 1 Week (Infectious disease. Office is closed at time of discharge. Please call for follow-up appointment.) Ambulatory/Diagnostic Orders: Basic Metabolic Panel [LAB.AMB] Time Frame: 3 Days, Location: None Selected Magnesium [LAB.AMB] Location: None Selected Patient Instructions/Handouts: Urinary Tract Infection in Men (DC) Activity/Diet/Wound Care/Special Instructions: Need to follow up with oncology outpatient. Once kidney function improves a CT scan of the chest abdomen and pelvis with contrasted is needed can be done on an outpatient basis Repeat labs on Saturday and follow up with watershed program manager outpatient in 1 week Discharge Disposition: HOME SELF-CARE
== END 2023-09-27 17:03 | disposition home or self-care (01) | DRG 871 ==
LOC: EC 07:40 → 5NMEDONC 12:47 → 4SSUR 19:06
PROVIDERS: ADMIT Internal Medicine; ATTEND Internal Medicine
PROC: 0DBV3ZX Excision of Mesentery, Percutaneous Approach, Diagnostic (ICD-10-PCS; principal; 2023-09-25)
DX: A41.9 Sepsis, unspecified organism (principal); N17.0 Acute kidney failure with tubular necrosis; K50.90 Crohn's disease, unspecified, without complications; N39.0 Urinary tract infection, site not specified; E87.20 Acidosis, unspecified; R63.4 Abnormal weight loss; R19.09 Other intra-abdominal and pelvic swelling, mass and lump; D63.8 Anemia in other chronic diseases classified elsewhere; E66.9 Obesity, unspecified; Z68.32 Body mass index [BMI] 32.0-32.9, adult; E86.1 Hypovolemia; E87.6 Hypokalemia; Z79.620 Long term (current) use of immunosuppressive biologic; K08.409 Partial loss of teeth, unspecified cause, unspecified class; Z11.52 Encounter for screening for COVID-19; Z79.899 Other long term (current) drug therapy
CPT/HCPCS: 36415; 49180; 71046; 74176; 76770; 77012; 80048; 80053; 80074; 80076; 81001; 82378; 82570; 82607; 82728; 82746; 83540; 83550; 83605; 83615; 83735; 83883; 84145; 84156; 84165; 85025; 85610; 86038; 86140; 86160; 86162; 86225; 86255; 86304; 86334; 86335; 87040; 87086; 87390; 87636; 88305; 88341; 88342; 96361; 96365; 96366; 96372; 96375; 99285

== ENCOUNTER → 2023-10-01 | Outpatient (CLI) | payer OTHER ==
[2023-10-01 11:08] LABS: BUN/Creat Ratio 7.04 Ratio (12.00-20.00); Blood Urea Nitrogen 16.2 mg/dL (9.0-27.0); Calcium 9.2 mg/dL (8.7-10.3); Carbon Dioxide 23.9 mmol/L (21.6-31.8); Chloride 104 mmol/L (96-109); Glucose 86 mg/dL (70-110); Magnesium 1.9 mg/dL (1.5-2.4); Potassium 3.6 mmol/L (3.5-5.5); Sodium 142 mmol/L (135-145)
== END | disposition home or self-care (01) ==
LOC: LABWHC1 07:16
PROVIDERS: ATTEND Nurse Practitioner Family
DX: N17.9 Acute kidney failure, unspecified (principal)
CPT/HCPCS: 36415; 80048; 83735

== ENCOUNTER → 2023-10-31 | Outpatient (CLI) | payer OTHER ==
--- NOTE | 2023-10-31 09:03 | CT ---
EXAMINATION TYPE: CT abdomen wo con CT DLP: 628 mGycm, Automated exposure control for dose reduction was used. DATE OF EXAM: 10/31/2023 8:51 AM COMPARISON: CT abdomen pelvis most recent from 09/24/2023, 09/25/2023, 09/21/2023 CLINICAL INDICATION:Male, 33 years old with history of K65.1 PERITONEAL ABSCESS; peritoneal abscess TECHNIQUE: Axial CT abdomen wo con;Sagittal and coronal reformats were created on a separate worksta tion. Contrast used: mL of , (none if empty) Oral contrast used: with Oral Contrast (none if empty) FINDINGS: LOWER CHEST: Unremarkable ABDOMEN LIVER: Diffusely hypoattenuating parenchyma. Few scattered probable hepatic cysts are present. GALLBLADDER AND BILE DUCTS: Unremarkable. PANCREAS: Unremarkable. SPLEEN: Unremarkable. ADRENAL GLANDS: Unremarkable. KIDNEYS AND URETERS: No evidence of hydronephrosis or renal calculus. The ureters are unremarkable. PELVIS BLADDER: Unremarkable REPRODUCTIVE: Unremarkable. ABDOMEN & PELVIS STOMACH AND BOWEL: No evidence of bowel obstruction. Interval decrease in in size and inflammation ch anges within the mesentery there remains a few scattered lymph nodes present within the mesentery and at least 2 foci of gas present fistulous tracts which may be present on prior remain likely present however less well appreciated due to lack of IV contrast. PERITONEUM/RETROPERITONEUM: No evidence of pneumoperitoneum or free fluid. VASCULATURE: No evidence of aortic aneurysm. MUSCULOSKELETAL: No acute osseous abnormalities LYMPH NODES: No gross evidence for lymphadenopathy. SOFT TISSUE/ABDOMINAL WALL: Unremarkable IMPRESSION: 1. Decrease in size of masslike mesenteric inflammation changes compared to 09/25/2023. Today there is decrease in inflammation changes. Few scattered lymph nodes in the mesentery as well as couple foci of gas remain present. Continued attention on follow-up imaging to ensure resolution. 2. Mild hepatic steatosis.
== END | disposition home or self-care (01) ==
LOC: RADCTMAIN 08:07
PROVIDERS: ATTEND Internal Medicine Gastroenterology
DX: K76.0 Fatty (change of) liver, not elsewhere classified (principal); K65.1 Peritoneal abscess; K66.8 Other specified disorders of peritoneum; R59.0 Localized enlarged lymph nodes
CPT/HCPCS: 74150

== ENCOUNTER → 2023-11-02 | Outpatient (CLI) | payer OTHER ==
[2023-11-02 13:28] LABS: Basophils # (A) 0.03 X 10*3/uL (0.00-0.10); Basophils % (A) 0.4 %; Eosinophils # (A) 0.05 X 10*3/uL (0.04-0.35); Eosinophils % (A) 0.7 %; HCT 26.1 % (39.6-50.0); HGB 8.2 g/dL (13.0-17.0); Lymphocytes # (A) 1.32 X 10*3/uL (0.90-5.00); Lymphocytes % (A) 18.5 %; MCH 27.7 pg (27.0-32.0); MCHC 31.4 g/dL (32.0-37.0); MCV 88.2 FL (80.0-97.0); Mean Platelet Volume 10.1 FL (9.5-12.2); Monocytes # (A) 0.68 X 10*3/uL (0.20-1.00); Monocytes % (A) 9.5 %; NRBC Per 100 WBC 0 X 10*3/uL (0.00-0.01); Neutrophils # (A) 5.04 X 10*3/uL (1.80-7.70); Neutrophils % (A) 70.6 %; Platelet Count 368 X 10*3/uL (140-440); RBC 2.96 X 10*6/uL (4.40-5.60); RDW 14.8 % (11.5-14.5); WBC 7.14 X 10*3/uL (4.50-10.00)
[2023-11-02 13:52] LABS: ALT 16 U/L (10-49); AST 16 U/L (14-35); Albumin 3.7 g/dL (3.8-4.9); Albumin/Globulin Ratio 1.03 Ratio (1.60-3.17); Alkaline Phosphatase 41 U/L (41-126); BUN/Creat Ratio 12.82 Ratio (12.00-20.00); Blood Urea Nitrogen 14.1 mg/dL (9.0-27.0); Calcium 9.3 mg/dL (8.7-10.3); Carbon Dioxide 25.2 mmol/L (21.6-31.8); Chloride 104 mmol/L (96-109); Globulin 3.6 g/dL (1.6-3.3); Glucose 87 mg/dL (70-110); Potassium 3.8 mmol/L (3.5-5.5); Sodium 141 mmol/L (135-145); Total Bilirubin 0.3 mg/dL (0.3-1.2); Total Protein 7.3 g/dL (6.2-8.2)
== END | disposition home or self-care (01) ==
LOC: LABWHC1 07:56
PROVIDERS: ATTEND Internal Medicine Gastroenterology
DX: K50.90 Crohn's disease, unspecified, without complications (principal)
CPT/HCPCS: 36415; 80053; 85025

== ENCOUNTER → 2023-12-27 | Outpatient (CLI) | payer OTHER ==
[2023-12-27 18:43] LABS: Basophils # (A) 0.06 X 10*3/uL (0.00-0.10); Basophils % (A) 0.6 %; Eosinophils # (A) 0.05 X 10*3/uL (0.04-0.35); Eosinophils % (A) 0.5 %; HCT 33.1 % (39.6-50.0); HGB 10.6 g/dL (13.0-17.0); Lymphocytes # (A) 1.94 X 10*3/uL (0.90-5.00); Lymphocytes % (A) 19.4 %; MCH 28.4 pg (27.0-32.0); MCV 88.7 FL (80.0-97.0); Mean Platelet Volume 9.6 FL (9.5-12.2); Monocytes # (A) 0.69 X 10*3/uL (0.20-1.00); Monocytes % (A) 6.9 %; NRBC Per 100 WBC 0 X 10*3/uL (0.00-0.01); Neutrophils # (A) 7.23 X 10*3/uL (1.80-7.70); Neutrophils % (A) 72.2 %; Platelet Count 382 X 10*3/uL (140-440); RBC 3.73 X 10*6/uL (4.40-5.60); RDW 13.4 % (11.5-14.5); WBC 10.01 X 10*3/uL (4.50-10.00)
[2023-12-27 19:27] LABS: Erythrocyte Sedimentation Rate 25 mm/Hr (0-15)
[2023-12-27 19:33] LABS: ALT 20 U/L (10-49); AST 18 U/L (14-35); Albumin 4.2 g/dL (3.8-4.9); Albumin/Globulin Ratio 1.08 Ratio (1.60-3.17); Alkaline Phosphatase 51 U/L (41-126); Blood Urea Nitrogen 14.9 mg/dL (9.0-27.0); Calcium 9.3 mg/dL (8.7-10.3); Carbon Dioxide 24.8 mmol/L (21.6-31.8); Chloride 101 mmol/L (96-109); Globulin 3.9 g/dL (1.6-3.3); Glucose 77 mg/dL (70-110); Potassium 3.9 mmol/L (3.5-5.5); Sodium 138 mmol/L (135-145); Total Bilirubin 0.3 mg/dL (0.3-1.2); Total Protein 8.1 g/dL (6.2-8.2)
== END | disposition home or self-care (01) ==
LOC: LABWHC1 14:57
PROVIDERS: ATTEND Internal Medicine Gastroenterology
DX: K50.90 Crohn's disease, unspecified, without complications (principal); K65.1 Peritoneal abscess
CPT/HCPCS: 36415; 80053; 85025; 85652; 86140

== ENCOUNTER → 2024-01-11 | Outpatient (CLI) | payer OTHER ==
[2024-01-11 10:39] LABS: Creatinine,Urine Random 109.1 mg/dL; Protein/Creatinine Ratio,Urine 0.183
[2024-01-11 14:19] LABS: Basophils # (A) 0.05 X 10*3/uL (0.00-0.10); Basophils % (A) 0.6 %; Eosinophils # (A) 0.11 X 10*3/uL (0.04-0.35); Eosinophils % (A) 1.4 %; HGB 11.3 g/dL (13.0-17.0); Lymphocytes # (A) 1.31 X 10*3/uL (0.90-5.00); Lymphocytes % (A) 16.4 %; MCH 28.4 pg (27.0-32.0); MCHC 32.3 g/dL (32.0-37.0); MCV 87.9 FL (80.0-97.0); Mean Platelet Volume 9.7 FL (9.5-12.2); Monocytes # (A) 0.68 X 10*3/uL (0.20-1.00); Monocytes % (A) 8.5 %; NRBC Per 100 WBC 0 X 10*3/uL (0.00-0.01); Neutrophils # (A) 5.83 X 10*3/uL (1.80-7.70); Neutrophils % (A) 72.8 %; Platelet Count 388 X 10*3/uL (140-440); RBC 3.98 X 10*6/uL (4.40-5.60); RDW 12.9 % (11.5-14.5)
[2024-01-11 14:45] LABS: ALT 18 U/L (10-49); AST 17 U/L (14-35); Alkaline Phosphatase 49 U/L (41-126); Blood Urea Nitrogen 17.6 mg/dL (9.0-27.0); Calcium 9.3 mg/dL (8.7-10.3); Carbon Dioxide 26.2 mmol/L (21.6-31.8); Chloride 104 mmol/L (96-109); Glucose 81 mg/dL (70-110); Phosphorus 3.4 mg/dL (2.4-5.1); Potassium 4.7 mmol/L (3.5-5.5); Sodium 141 mmol/L (135-145); Total Bilirubin 0.2 mg/dL (0.3-1.2)
[2024-01-11 16:50] LABS: Appearance,Urine Clear (Clear); Bilirubin,Urine Negative (Negative); Blood,Urine Moderate (Negative); Color,Urine Yellow (Yellow); Ketones,Urine Negative (Negative); Nitrite,Urine Negative (Negative); Urobilinogen,Urine 0.2 E.U./DL
[2024-01-11 18:18] LABS: Bacteria,Urine None Seen (None Seen)
== END | disposition home or self-care (01) ==
LOC: LABWHC1 09:02
PROVIDERS: ATTEND Internal Medicine
DX: N39.0 Urinary tract infection, site not specified (principal); N17.9 Acute kidney failure, unspecified; R80.9 Proteinuria, unspecified; D64.9 Anemia, unspecified
CPT/HCPCS: 36415; 80053; 81001; 82043; 82570; 83735; 84100; 84156; 85025

== ENCOUNTER → 2024-01-17 | Outpatient (CLI) | payer OTHER ==
[2024-01-17] MEDS: SODIUM CHLORIDE 0.9% 500 ML 500 ML in EMPTY BAG 1 BAG IV PRN (14:13)
[2024-01-17] MEDS: IRON SUCROSE 200 MG in SODIUM CHLORIDE 0.9% 100 ML IVPB NR (14:14)
[2024-01-17 14:15] VITALS: BP 119/76; PULSE 89; RESP 16; TEMP 98.4
== END ==
LOC: PROCWHC3 13:40
PROVIDERS: ATTEND Physician Assistant Medical
DX: D64.9 Anemia, unspecified (principal)
CPT/HCPCS: 96365; J1756

== ENCOUNTER → 2024-01-24 | Outpatient (CLI) | payer OTHER | END | disposition home or self-care (01) | LOC: LABWHC1 10:51 | PROVIDERS: ATTEND Internal Medicine Gastroenterology | DX: K65.1 Peritoneal abscess (principal) | CPT/HCPCS: 36415; 85652; 86140; 86480 ==

== ENCOUNTER 2024-02-02 18:12 | Inpatient (IN) | payer OTHER ==
--- NOTE | 2024-02-02 18:42 | ED ---
Male Urogenital HPI - General Source: patient, RN notes reviewed Mode of arrival: ambulatory Limitations: no limitations <Alejandra Dominique - Last Filed: 02/02/24 18:40> <Edgard Chapman - Last Filed: 02/03/24 00:46> - General Chief complaint: Urogenital Stated complaint: Body aches, fever Time Seen by Provider: 02/02/24 18:30 - History of Present Illness Initial comments: Quick Note-is a 33-year-old male presents emergency department chief complaint of bodyaches, intermittent fevers, and hematuria that started today. Patient states that he is being considered seeing the symptoms over the past 3 days. He endorses back pain. He denies increase in urinary frequency, urgency, nausea, vomiting. Patient has a history of kidney infections. Denies recent antibiotic use. (Alejandra Dominique) 33-year-old male with ongoing issue of hematuria also intermittent fevers and low back pain. Patient has history of Crohn's. He had an admission and extensive workup for intra-abdominal mass within the past 5 months. He states he had been doing better but then over the past several days his symptoms had worsened which were similar in nature to previous issue. Patient follows closely with GI for his Crohn's disease. No cough or upper respiratory symptoms. (Edgard Chapman) - Related Data Home Medications Medication Instructions Recorded Confirmed Loratadine [Claritin] 10 mg PO DAILY PRN 02/18/19 01/17/24 Ferrous Sulfate [Feosol] 325 mg PO DAILY 10/29/23 01/17/24 Adalimumab [Humira(Cf) Pen] 40 mg SQ WEEKLY 01/17/24 01/17/24 Allergies Allergy/AdvReac Type Severity Reaction Status Date / Time No Known Allergies Allergy Verified 02/02/24 18:39 Review of Systems ROS Other: All systems not noted in ROS Statement are negative. <Alejandra Dominique - Last Filed: 02/02/24 18:40> ROS Other: All systems not noted in ROS Statement are negative. <Edgard Chapman - Last Filed: 02/03/24 00:46> ROS Statement: Those systems with pertinent positive or pertinent negative responses have been documented in the HPI. Past Medical History Additional Past Medical History / Comment(s): HX OF CROHN'S. History of Any Multi-Drug Resistant Organisms: None Reported Additional Past Surgical History / Comment(s): COLONOSCOPIES, WISDOM TEETH EXTRACTION. Past Anesthesia/Blood Transfusion Reactions: Motion Sickness Past Psychological History: No Psychological Hx Reported Smoking Status: Never smoker Past Alcohol Use History: None Reported Past Drug Use History: None Reported - Past Family History Mother Family Medical History: No Reported History <Alejandra Dominique - Last Filed: 02/02/24 18:40> General Exam Limitations: no limitations <Alejandra Dominique - Last Filed: 02/02/24 18:40> General appearance: alert Head exam: Present: atraumatic, normocephalic Eye exam: Present: normal appearance, PERRL ENT exam: Present: normal exam Neck exam: Present: normal inspection. Absent: tenderness, meningismus Respiratory exam: Present: normal lung sounds bilaterally. Absent: respiratory distress, wheezes Cardiovascular Exam: Present: normal rhythm, tachycardia GI/Abdominal exam: Present: soft, tenderness. Absent: distended, guarding, rebound Extremities exam: Present: normal inspection, normal capillary refill Neurological exam: Present: alert, oriented X3, CN II-XII intact, normal gait. Absent: motor sensory deficit Psychiatric exam: Present: normal affect, normal mood Skin exam: Present: warm, dry, intact. Absent: cyanosis, diaphoretic <Edgard Chapman - Last Filed: 02/03/24 00:46> - General Exam Comments Initial Comments: Visual Physical Exam Vital signs reviewed General: Well-appearing, nontoxic, no acute distress. Head: Normocephalic, atraumatic Eyes: PERRLA, EOMI ENT: Airway patent Chest: Nonlabored breathing Skin: No visual rash, normal skin tone Neuro: Alert and oriented 3 Musculoskeletal: No gross abnormalities (Vivelemaira,Alejandra) Course Vital Signs 02/02/24 18:37 Temperature 99.3 F Pulse Rate 113 H Respiratory 15 Rate Blood Pressure 153/89 O2 Sat by Pulse 97 Oximetry Medical Decision Making <Alejandra Domiinque - Last Filed: 02/02/24 18:40> - Lab Data Result diagrams: 02/02/24 22:11 02/02/24 22:11 <Edgard Chapman - Last Filed: 02/03/24 00:46> - Medical Decision Making I completed the quick note portion of this chart signed Alejandra Dominique PA-C (Alejandra Dominique) Was pt. sent in by a medical professional or institution ([facility], [facility], urgent care, hospital, or detention...) When possible be specific @ -No Did you speak to anyone other than the patient for history (EMS, parent, family, police, friend...)? What history was obtained from this source @ -No Did you review nursing and triage notes (agree or disagree)? Why? @ -I reviewed and agree with nursing and triage notes Were old charts reviewed (outside hosp., previous admission, EMS record, old EKG, old radiological studies, urgent care reports/EKG's, detention records)? Report findings @ -No old charts were reviewed Differential Abdominal Pain Men: Appendicitis, cholecystitis, diverticulosis, ischemic bowel, pancreatitis, hepatitis, UTI, gastroenteritis, AAA, incarcerated hernia, bowel obstruction, constipation, inflammatory bowel, hepatitis, peptic ulcer disease, splenic infarction, perforated viscus, testicular torsion, this is not meant to be an all-inclusive list EKG interpreted by me (3pts min.). @ -As above X-rays interpreted by me (1pt min.). @ -None done CT interpreted by me (1pt min.). @CT showing intra-abdominal abscess, radiology believing this to be a contained abscess from the small bowel. U/S interpreted by me (1pt. min.). @ -None done What testing was considered but not performed or refused? (CT, X-rays, U/S, labs)? Why? @ -None What meds were considered but not given or refused? Why? @ -None Did you discuss the management of the patient with other professionals (professionals i.e. [facility], [facility], lab, RT, psych nurse, social science analyst, psychologist industrial organizational, teacher, forestry technical officer, caser up)? Give summary @ -No Was smoking cessation discussed for >3mins.? @ -No Was critical care preformed (if so, how long)? @ -No Were there social determinants of health that impacted care today? How? (Homelessness, low income, unemployed, alcoholism, drug addiction, transportation, low edu. Level, literacy, decrease access to med. care, shelter, rehab)? @ -No Was there de-escalation of care discussed even if they declined (Discuss DNR or withdrawal of care, Hospice)? DNR status @ -No What co-morbidities impacted this encounter? (DM, HTN, Smoking, COPD, CAD, Cancer, CVA, ARF, Chemo, Hep., AIDS, mental health diagnosis, sleep apnea, morbid obesity)? @ -[Crohn's disease Was patient admitted / discharged? Hospital course, mention meds given and route, prescriptions, significant lab abnormalities, going to OR and other pertinent info. @33-year-old male with fever, abdominal pain, low back pain. History of Crohn's and intra-abdominal mass versus abscess in the recent past. Patient is scheduled for outpatient CT in 2 days. This was ordered in the emergency department as well as laboratory testing. Patient has an elevated white blood cell count, urinalysis does show red cells which is consistent with prior known microscopic hematuria. CT ordered and is showing a intra-abdominal abscess. Patient is started on IV antibiotics he will be admitted to internal medicine with general surgery on consult. Undiagnosed new problem with uncertain prognosis? @ -No Drug Therapy requiring intensive monitoring for toxicity (Heparin, Nitro, Insulin, Cardizem)? @ -No Were any procedures done? @ -No Diagnosis/symptom? @ -Intra-abdominal abscess Acute, or Chronic, or Acute on Chronic? @ -Acute Uncomplicated (without systemic symptoms) or Complicated (systemic symptoms)? @ -Default Side effects of treatment? @ -No Exacerbation, Progression, or Severe Exacerbation? @ -No Poses a threat to life or bodily function? How? (Chest pain, USA, PR, pneumonia, PE, COPD, DKA, ARF, appy, cholecystitis, CVA, Diverticulitis, Homicidal, Suicidal, threat to staff... and all critical care pts) @Yes, sepsis (Edgard Chapman) - Lab Data Lab Results 02/02/24 02/02/24 02/02/24 Range/Units 18:49 22:11 22:11 WBC 18.2 H (3.8-10.6) k/uL RBC 4.27 L (4.30-5.90) m/uL Hgb 11.7 L (13.0-17.5) gm/dL Hct 36.2 L (39.0-53.0) % MCV 84.7 (80.0-100.0) fL MCH 27.3 (25.0-35.0) pg MCHC 32.3 (31.0-37.0) g/dL RDW 13.2 (11.5-15.5) % Plt Count 426 (150-450) k/uL MPV 7.2 Neutrophils % 78 % Lymphocytes % 10 % Monocytes % 8 % Eosinophils % 0 % Basophils % 0 % Neutrophils # 14.2 H (1.3-7.7) k/uL Lymphocytes # 1.8 (1.0-4.8) k/uL Monocytes # 1.4 H (0-1.0) k/uL Eosinophils # 0.0 (0-0.7) k/uL Basophils # 0.1 (0-0.2) k/uL Sodium 136 L (137-145) mmol/L Potassium 4.3 (3.5-5.1) mmol/L Chloride 98 (98-107) mmol/L Carbon Dioxide 23 (22-30) mmol/L Anion Gap 15 mmol/L BUN 14 (9-20) mg/dL Creatinine 1.05 (0.66-1.25) mg/dL Est GFR (CKD-EPI)AfAm >90 (>60 ml/min/1.73 sqM) Est GFR (CKD-EPI)NonAf >90 (>60 ml/min/1.73 sqM) Glucose 99 (74-99) mg/dL Plasma Lactic Acid Khanh (0.7-2.0) mmol/L Calcium 8.9 (8.4-10.2) mg/dL Total Bilirubin 0.6 (0.2-1.3) mg/dL AST 22 (17-59) U/L ALT 19 (4-49) U/L Alkaline Phosphatase 52 (38-126) U/L Total Protein 8.1 (6.3-8.2) g/dL Albumin 3.8 (3.5-5.0) g/dL Urine Color Light Yellow Urine Appearance Cloudy (Clear) Urine pH 5.5 (5.0-8.0) Ur Specific [place] 1.005 (1.001-1.035) Urine Protein 1+ H (Negative) Urine Glucose (UA) Negative (Negative) Urine Ketones Negative (Negative) Urine Blood Large H (Negative) Urine Nitrite Negative (Negative) Urine Bilirubin Negative (Negative) Urine Urobilinogen <2.0 (<2.0) mg/dL Ur Leukocyte Esterase Negative (Negative) Urine RBC 120 H (0-5) /hpf Urine WBC 4 (0-5) /hpf Ur Squamous Epith Cells <1 (0-4) /hpf Urine Bacteria Occasional H (None) /hpf Influenza Type A (PCR) (Not Detectd) Influenza Type B (PCR) (Not Detectd) RSV (PCR) (Not Detectd) SARS-CoV-2 (PCR) (Not Detectd) 02/02/24 02/03/24 Range/Units 22:11 00:01 WBC (3.8-10.6) k/uL RBC (4.30-5.90) m/uL Hgb (13.0-17.5) gm/dL Hct (39.0-53.0) % MCV (80.0-100.0) fL MCH (25.0-35.0) pg MCHC (31.0-37.0) g/dL RDW (11.5-15.5) % Plt Count (150-450) k/uL MPV Neutrophils % % Lymphocytes % % Monocytes % % Eosinophils % % Basophils % % Neutrophils # (1.3-7.7) k/uL Lymphocytes # (1.0-4.8) k/uL Monocytes # (0-1.0) k/uL Eosinophils # (0-0.7) k/uL Basophils # (0-0.2) k/uL Sodium (137-145) mmol/L Potassium (3.5-5.1) mmol/L Chloride (98-107) mmol/L Carbon Dioxide (22-30) mmol/L Anion Gap mmol/L BUN (9-20) mg/dL Creatinine (0.66-1.25) mg/dL Est GFR (CKD-EPI)AfAm (>60 ml/min/1.73 sqM) Est GFR (CKD-EPI)NonAf (>60 ml/min/1.73 sqM) Glucose (74-99) mg/dL Plasma Lactic Acid Khanh 0.7 (0.7-2.0) mmol/L Calcium (8.4-10.2) mg/dL Total Bilirubin (0.2-1.3) mg/dL AST (17-59) U/L ALT (4-49) U/L Alkaline Phosphatase (38-126) U/L Total Protein (6.3-8.2) g/dL Albumin (3.5-5.0) g/dL Urine Color Urine Appearance (Clear) Urine pH (5.0-8.0) Ur Specific [place] (1.001-1.035) Urine Protein (Negative) Urine Glucose (UA) (Negative) Urine Ketones (Negative) Urine Blood (Negative) Urine Nitrite (Negative) Urine Bilirubin (Negative) Urine Urobilinogen (<2.0) mg/dL Ur Leukocyte Esterase (Negative) Urine RBC (0-5) /hpf Urine WBC (0-5) /hpf Ur Squamous Epith Cells (0-4) /hpf Urine Bacteria (None) /hpf Influenza Type A (PCR) Not Detected (Not Detectd) Influenza Type B (PCR) Not Detected (Not Detectd) RSV (PCR) Not Detected (Not Detectd) SARS-CoV-2 (PCR) Not Detected (Not Detectd) Disposition <Alejandra Dominique - Last Filed: 02/02/24 18:40> Is patient prescribed a controlled substance at d/c from ED?: No Time of Disposition: 00:46 <Edgard Chapman - Last Filed: 02/03/24 00:46> Clinical Impression: Leukocytosis, Fever, Intra-abdominal abscess Disposition: ADMITTED IP TO THIS HOSP Condition: Stable Referrals: Raj Jimenez MD [Primary Care Provider] - 1-2 days
--- NOTE | 2024-02-02 19:46 | XR ---
EXAMINATION TYPE: XR KUB DATE OF EXAM: 02/02/2024 7:27 PM CLINICAL INDICATION:Male, 33 years old with history of hematuria, back pain; [facility] COMPARISON: None. TECHNIQUE: One radiographic view of the abdomen was obtained. FINDINGS: The bowel gas pattern is nonspecific without dilated loops of small or large bowel. There i s no evidence for organomegaly or pneumoperitoneum. The osseous structures are intact. No abnormal calcifications are present. Fecal material and gas are demonstrated throughout the colon and rectum. IMPRESSION: Nonspecific bowel gas pattern without radiographic evidence for acute process.
[2024-02-02 20:04] LABS: Appearance,Urine Cloudy (Clear); Bacteria,Urine Occasional /hpf; Bilirubin,Urine Negative (Negative); Blood,Urine Large (Negative); Color,Urine Light Yellow; Glucose,Urine (UA) Negative (Negative); Ketones,Urine Negative (Negative); Leukocyte Esterase,Urine Negative (Negative); Nitrite,Urine Negative (Negative); PH, Urine 5.5 (5.0-8.0); Protein,Urine 1+ (Negative); RBC,Urine 120 /hpf (0-5); Specific Gravity,Urine 1.005 (1.001-1.035); Squamous Epithelial Cell,Urine <1 /hpf (0-4); Urobilinogen,Urine <2.0 mg/dL (<2.0); WBC,Urine 4 /hpf (0-5)
[2024-02-02] MEDS: SODIUM CHLORIDE 0.9% 1,000 ML IV ONE (22:41)
[2024-02-02 22:49] LABS: Basophils # (A) 0.1 k/uL (0-0.2); Basophils % (A) 0 %; Eosinophils % (A) 0 %; HCT 36.2 % (39.0-53.0); HGB 11.7 gm/dL (13.0-17.5); Lymphocytes # (A) 1.8 k/uL (1.0-4.8); Lymphocytes % (A) 10 %; MCH 27.3 pg (25.0-35.0); MCHC 32.3 g/dL (31.0-37.0); MCV 84.7 fL (80.0-100.0); Mean Platelet Volume 7.2; Monocytes # (A) 1.4 k/uL (0-1.0); Monocytes % (A) 8 %; Neutrophils # (A) 14.2 k/uL (1.3-7.7); Neutrophils % (A) 78 %; Platelet Count 426 k/uL (150-450); RBC 4.27 m/uL (4.30-5.90); RDW 13.2 % (11.5-15.5); WBC 18.2 k/uL (3.8-10.6)
[2024-02-02 23:00] LABS: ALT 19 U/L (4-49); AST 22 U/L (17-59); African American GFR (CKD) >90 (>60 ml/min/1.73 sqM); Albumin 3.8 g/dL (3.5-5.0); Alkaline Phosphatase 52 U/L (38-126); Anion Gap 15 mmol/L; Blood Urea Nitrogen 14 mg/dL (9-20); Calcium 8.9 mg/dL (8.4-10.2); Carbon Dioxide 23 mmol/L (22-30); Chloride 98 mmol/L (98-107); Glucose 99 mg/dL (74-99); Non-African American GFR(CKD) >90 (>60 ml/min/1.73 sqM); Potassium 4.3 mmol/L (3.5-5.1); Sodium 136 mmol/L (137-145); Total Bilirubin 0.6 mg/dL (0.2-1.3); Total Protein 8.1 g/dL (6.3-8.2)
[2024-02-03] MEDS: SODIUM CHLORIDE 0.9% 1,000 ML IV SCH (00:04)
[2024-02-03] MEDS: ACETAMINOPHEN TAB 500 MG TAB PO STA (00:04)
[2024-02-03] MEDS: HYDROmorphone 0.5 MG/0.5 ML SYRINGE IVP STA (00:05)
[2024-02-03] MEDS: PIPERACILLIN-TAZOBACTAM 3.375 GM in SODIUM CHLORIDE 0.9% 100 ML IVPB SCH (00:06)
--- NOTE | 2024-02-03 00:08 | CT ---
EXAM: CT Abdomen and Pelvis With Intravenous Contrast CLINICAL HISTORY: ITS.REASON CT Reason: Fever, hematuria, low back pain TECHNIQUE: Axial computed tomography images of the abdomen and pelvis with intravenous contrast. CTDI is 25.1 mGy and DLP is 1298.5 mGy-cm. This CT exam was performed using one or more of the following dose reduction techniques: automated exposure control, adjustment of the mA and/or kV according to patient size, and/or use of iterative reconstruction technique. COMPARISON: September 24, 2023 FINDINGS: Lung bases: Unremarkable. No mass. No consolidation. ABDOMEN: Liver: Cyst in the LEFT hepatic lobe measures 2.1 cm. Gallbladder and bile ducts: Unremarkable. No calcified stones. No ductal dilation. Pancreas: Unremarkable. No mass. No ductal dilation. Spleen: Unremarkable. No splenomegaly. Adrenals: Unremarkable. No mass. Kidneys and ureters: Unremarkable. No solid mass. No hydronephrosis. Stomach and bowel: New thick-walled collection in the LEFT lower quadrant measures 8.0 x 4.3 cm concerning for a new abscess. Evaluation limited without oral contrast, recommend repeat exam with oral contrast. Adjacent bowel is thickened, consistent with enteritis/Crohn's disease. No obstruction. PELVIS: Appendix: No findings to suggest acute appendicitis. Bladder: Unremarkable. No mass. Reproductive: Unremarkable as visualized. ABDOMEN and PELVIS: Intraperitoneal space: Thick walled collection with air on CT scan from September 24, 2023 is no longer visualized in the pelvis. Mild residual scar tissue in this location. This may have represented an abscess. No significant fluid collection. Bones/joints: No acute fracture. No dislocation. Soft tissues: Unremarkable. Vasculature: Unremarkable. No abdominal aortic aneurysm. Lymph nodes: Unremarkable. No enlarged lymph nodes. IMPRESSION: 1. Thick walled collection with air on CT scan from September 24, 2023 is no longer visualized in the pelvis. Mild residual scar tissue in this location. This may have represented an abscess. 2. New thick-walled collection in the LEFT lower quadrant measures 8.0 x 4.3 cm concerning for a new abscess. Evaluation limited without oral contrast, recommend repeat exam with oral contrast. Adjacent bowel is thickened, consistent with enteritis/Crohn's disease. <MYCVCSECTION> Communications: 02/02/24 23:31 Call Doctor Regarding Other, called Dr. Chapman on 02/01 23:31 (-04:00)
[2024-02-03] MEDS ORDERED: NALOXONE 0.4 MG/ML 1 ML VIAL IV PRN (00:41)
--- NOTE | 2024-02-03 02:44 | P.HPIM ---
History of Present Illness H&P Date: 02/03/24 Chief Complaint: Back pain, fevers 53-year-old female with Crohn's disease Patient coming in due to couple day history of worsening low back pain with intermittent fevers and diarrhea. Denies any upper respiratory infection symptoms cough sore throat shortness of breath or chest pain. He reports this is similar to his symptoms about 5 months ago for which she presented to the hospital at that time after which she had extensive workup of his intra-abdominal mass but then since then he has been doing better until the past few days when he started having severe diarrhea with worsening low back pain Patient denies any dysuria GI bleeding nausea vomiting coughing or upper respiratory infection symptoms patient denies any recent use of antibiotics Patient admits to occasional alcohol denies any smoking or illicit drugs review of systems Pertinent positives as noted in HPI. All other systems were reviewed and are negative on exam Constitutional: No acute distress, conversant, pleasant Eyes: Anicteric sclerae, moist conjunctiva, Pupils equal round reactive to light ENMT: NC/AT Oropharynx clear, no erythema, or exudates Neck: Supple, no masses, or JVD No carotid bruits No thyromegaly Lungs: Clear to auscultation Clear to percussion Normal respiratory effort, no accessory muscle use Cardiovascular: Heart regular in rate and rhythm, No murmurs, gallops, or rubs No peripheral edema Abdominal: Soft Nontender, no guarding, rebound or rigidity Abdomen moving with respiration Normoactive bowel sounds Extremities: No digital cyanosis No clubbing Pedal pulses intact and symmetrical Radial pulses intact and symmetrical No calf tenderness Psychiatric: Alert and oriented to person, place and time Appropriate affect fair judgement Neuro Muscles Strength 5/5 in all 4 extremities Sensation to light touch grossly present throughout Cranial nerves II-XII grossly intact Past Medical History Additional Past Medical History / Comment(s): HX OF CROHN'S. History of Any Multi-Drug Resistant Organisms: None Reported Additional Past Surgical History / Comment(s): COLONOSCOPIES, WISDOM TEETH EXTRACTION. Past Anesthesia/Blood Transfusion Reactions: Motion Sickness Past Psychological History: No Psychological Hx Reported Smoking Status: Never smoker Past Alcohol Use History: None Reported Past Drug Use History: None Reported - Past Family History Mother Family Medical History: No Reported History Medications and Allergies Home Medications Medication Instructions Recorded Confirmed Type Loratadine [Claritin] 10 mg PO DAILY PRN 02/18/19 01/17/24 History Ferrous Sulfate [Feosol] 325 mg PO DAILY 10/29/23 01/17/24 History Adalimumab [Humira(Cf) Pen] 40 mg SQ WEEKLY 01/17/24 01/17/24 History Allergies Allergy/AdvReac Type Severity Reaction Status Date / Time No Known Allergies Allergy Verified 02/02/24 18:39 Physical Exam Vitals: Vital Signs Temp Pulse Resp BP Pulse Ox 02/03/24 00:58 97 16 146/86 97 02/02/24 18:37 99.3 F 113 H 15 153/89 97 Intake and Output 02/02/24 02/02/24 02/03/24 14:59 22:59 06:59 Other: Voiding Method Toilet Weight 108.862 kg Results CBC & Chem 7: 02/02/24 22:11 02/02/24 22:11 Labs: Abnormal Lab Results - Last 24 Hours (Table) 02/02/24 02/02/24 02/02/24 Range/Units 18:49 22:11 22:11 WBC 18.2 H (3.8-10.6) k/uL RBC 4.27 L (4.30-5.90) m/uL Hgb 11.7 L (13.0-17.5) gm/dL Hct 36.2 L (39.0-53.0) % Neutrophils # 14.2 H (1.3-7.7) k/uL Monocytes # 1.4 H (0-1.0) k/uL Sodium 136 L (137-145) mmol/L Urine Protein 1+ H (Negative) Urine Blood Large H (Negative) Urine RBC 120 H (0-5) /hpf Urine Bacteria Occasional H (None) /hpf Assessment and Plan Assessment: 33-year-old male with Crohn's disease coming in for fevers intermittent, diarrhea, low back pain he is known to have an intra-abdominal mass which was diagnosed about 5 months ago I discussed the case with ED doctor and accepted the admission for sepsis secondary to intra-abdominal abscess with anticipated length of stay more than 2 midnights Sepsis secondary to abscess collection CT scan of the abdomen showed Thick-walled collection in the left lower quadrant measures 8 x 4.3 cm concerning for new abscess along with enteritis and Crohn's disease Supportive care Surgery consultation IR consultation Continue Zosyn 3.375 g IV piggyback every 8 hours Pain control with opiates Dilaudid IV fluid hydration normal saline status post 1 L normal saline bolus given another liter of normal saline bolus then continue normal saline with 30 cc/h Tylenol as needed for fever Protonix 40 mg p.o. daily GI prophylaxis Lactic acid 0.7 White count 18.2 Hemoglobin 11.7 Renal function unremarkable sodium 136 potassium 4.3 BUN 14 creatinine 1 Full code DVT prophylaxis heparin subcu 3 times daily
[2024-02-03] MEDS: SODIUM CHLORIDE 0.9% 1,000 ML IV ONE (04:00)
[2024-02-03] MEDS: HYDROmorphone 0.5 MG/0.5 ML SYRINGE IVP PRN (04:00)
[2024-02-03] MEDS: HEPARIN SODIUM,PORCINE 5,000 UNIT/ML 1 ML VIAL SQ SCH (07:46)
[2024-02-03] MEDS: PANTOPRAZOLE 40 MG TABLET PO SCH (07:47)
[2024-02-03 10:06] LABS: Basophils % (A) 0 %; Eosinophils % (A) 0 %; HGB 10.1 gm/dL (13.0-17.5); Lymphocytes % (A) 7 %; MCH 27.3 pg (25.0-35.0); MCHC 31.5 g/dL (31.0-37.0); MCV 86.5 fL (80.0-100.0); Mean Platelet Volume 7.7; Monocytes # (A) 0.9 k/uL (0-1.0); Monocytes % (A) 6 %; Neutrophils # (A) 11.8 k/uL (1.3-7.7); Neutrophils % (A) 84 %; Platelet Count 363 k/uL (150-450); RDW 13.3 % (11.5-15.5)
[2024-02-03 10:25] LABS: African American GFR (CKD) >90 (>60 ml/min/1.73 sqM); Anion Gap 8 mmol/L; Blood Urea Nitrogen 11 mg/dL (9-20); Calcium 7.8 mg/dL (8.4-10.2); Carbon Dioxide 25 mmol/L (22-30); Chloride 105 mmol/L (98-107); Glucose 95 mg/dL (74-99); Non-African American GFR(CKD) >90 (>60 ml/min/1.73 sqM); Potassium 3.8 mmol/L (3.5-5.1); Sodium 138 mmol/L (137-145)
--- NOTE | 2024-02-03 13:55 | P.GSCN ---
History of Present Illness Consult date: 02/03/24 History of present illness: CHIEF COMPLAINT: Abdominal pain HISTORY OF PRESENT ILLNESS: This is a 33-year-old male who presented with back pain that radiated to the right side of the abdomen. Also reporting hematuria. He has been having diarrhea with no blood in the stools. He reports having a fever of 103 at home. Patient has a known history of Crohn's with an intra- abdominal mass that was worked up within the last 5 months. Pathology of the mesenteric mass had reported abscess and reactive myofibroblastic proliferation. CT scan abdomen pelvis reported thick walled collection with air on CT scan from September 24 is no longer visualized in the pelvis. Mild residual scar tissue is at that location. This may have represented an abscess. New thick-walled collection in the left lower quadrant measures 8 x 4.3 cm concerning for a new abscess. Adjacent bowel is thickened consistent with enteritis/Crohn's disease. Patient does not take medications for his Crohn's disease and is followed by Dr. Mccabe. PAST MEDICAL HISTORY: Crohn's PAST SURGICAL HISTORY: See below MEDICATIONS: See below ALLERGIES: See below SOCIAL HISTORY: No illicit drug use. REVIEW OF SYSTEMS: CONSTITUTIONAL: Denies fever or chills. HEENT: Denies blurred vision, vision changes, or eye pain. Denies hemoptysis CARDIOVASCULAR: Denies chest pain or pressure. RESPIRATORY: No shortness of breath. GASTROINTESTINAL: See HPI for pertinent findings HEMATOLOGIC: Denies bleeding disorders. GENITOURINARY: Denies any blood in urine or increased urinary frequency. SKIN: Denies pruitis. Denies rash. PHYSICAL EXAM: VITAL SIGNS: Reviewed GENERAL: Well-developed in no acute distress. ABDOMEN: Soft. Nondistended. Diffuse tenderness. More tender in the left lower quadrant. NEUROLOGIC: Alert and oriented. Cranial nerves II through XII grossly intact. LABORATORY DATA: WBC 18.2 down to 14 Hgb 10.1 platelets 363 Sodium is 138 potassium 3.8 creatinine 1.02 Urinalysis with large amount of blood IMAGING: CT scan abdomen pelvis as reported above ASSESSMENT: 1. Intra-abdominal abscess in the left lower quadrant noted on CT 2. Crohn's disease PLAN: -Consult interventional radiology for drainage of abdominal abscess -Continue antibiotics -Continue IV fluids -Keep patient n.p.o. for now -Agree with GI consult -Recommend possible urology consult regarding hematuria -Continue pain management Physician Glost Kiln Operator note has been reviewed by physician. Signing provider agrees with the documented findings, assessment, and plan of care. Past Medical History Additional Past Medical History / Comment(s): HX OF CROHN'S. History of Any Multi-Drug Resistant Organisms: None Reported Additional Past Surgical History / Comment(s): COLONOSCOPIES, WISDOM TEETH EXTRACTION. Past Anesthesia/Blood Transfusion Reactions: Motion Sickness Past Psychological History: No Psychological Hx Reported Smoking Status: Never smoker Past Alcohol Use History: None Reported Past Drug Use History: None Reported - Past Family History Mother Family Medical History: No Reported History Medications and Allergies Home Medications Medication Instructions Recorded Confirmed Type Loratadine [Claritin] 10 mg PO DAILY 02/18/19 02/03/24 History Hyrimoz (Pf) Pen 40mg/0.4ml 40 mg SQ Q14D 02/03/24 02/03/24 History Allergies Allergy/AdvReac Type Severity Reaction Status Date / Time No Known Allergies Allergy Verified 02/03/24 07:09 Surgical - Exam Vital Signs Temp Pulse Resp BP Pulse Ox 99.3 F 113 H 15 153/89 97 02/02/24 18:37 02/02/24 18:37 02/02/24 18:37 02/02/24 18:37 02/02/24 18:37 Results - Labs 02/03/24 09:52 02/03/24 09:52 Abnormal Lab Results - Last 24 Hours (Table) 02/02/24 02/02/24 02/02/24 Range/Units 18:49 22:11 22:11 WBC 18.2 H (3.8-10.6) k/uL RBC 4.27 L (4.30-5.90) m/uL Hgb 11.7 L (13.0-17.5) gm/dL Hct 36.2 L (39.0-53.0) % Neutrophils # 14.2 H (1.3-7.7) k/uL Monocytes # 1.4 H (0-1.0) k/uL Sodium 136 L (137-145) mmol/L Calcium (8.4-10.2) mg/dL Urine Protein 1+ H (Negative) Urine Blood Large H (Negative) Urine RBC 120 H (0-5) /hpf Urine Bacteria Occasional H (None) /hpf 02/03/24 02/03/24 Range/Units 09:52 09:52 WBC 14.0 H (3.8-10.6) k/uL RBC 3.70 L (4.30-5.90) m/uL Hgb 10.1 L (13.0-17.5) gm/dL Hct 32.0 L (39.0-53.0) % Neutrophils # 11.8 H (1.3-7.7) k/uL Monocytes # (0-1.0) k/uL Sodium (137-145) mmol/L Calcium 7.8 L (8.4-10.2) mg/dL Urine Protein (Negative) Urine Blood (Negative) Urine RBC (0-5) /hpf Urine Bacteria (None) /hpf Diabetes panel 02/02/24 02/03/24 Range/Units 22:11 09:52 Sodium 136 L 138 (137-145) mmol/L Potassium 4.3 3.8 (3.5-5.1) mmol/L Chloride 98 105 (98-107) mmol/L Carbon Dioxide 23 25 (22-30) mmol/L BUN 14 11 (9-20) mg/dL Creatinine 1.05 1.02 (0.66-1.25) mg/dL Glucose 99 95 (74-99) mg/dL Calcium 8.9 7.8 L (8.4-10.2) mg/dL AST 22 (17-59) U/L ALT 19 (4-49) U/L Alkaline Phosphatase 52 (38-126) U/L Total Protein 8.1 (6.3-8.2) g/dL Albumin 3.8 (3.5-5.0) g/dL Calcium panel 02/02/24 02/03/24 Range/Units 22:11 09:52 Calcium 8.9 7.8 L (8.4-10.2) mg/dL Albumin 3.8 (3.5-5.0) g/dL Pituitary panel 02/02/24 02/03/24 Range/Units 22:11 09:52 Sodium 136 L 138 (137-145) mmol/L Potassium 4.3 3.8 (3.5-5.1) mmol/L Chloride 98 105 (98-107) mmol/L Carbon Dioxide 23 25 (22-30) mmol/L BUN 14 11 (9-20) mg/dL Creatinine 1.05 1.02 (0.66-1.25) mg/dL Glucose 99 95 (74-99) mg/dL Calcium 8.9 7.8 L (8.4-10.2) mg/dL Adrenal panel 02/02/24 02/03/24 Range/Units 22:11 09:52 Sodium 136 L 138 (137-145) mmol/L Potassium 4.3 3.8 (3.5-5.1) mmol/L Chloride 98 105 (98-107) mmol/L Carbon Dioxide 23 25 (22-30) mmol/L BUN 14 11 (9-20) mg/dL Creatinine 1.05 1.02 (0.66-1.25) mg/dL Glucose 99 95 (74-99) mg/dL Calcium 8.9 7.8 L (8.4-10.2) mg/dL Total Bilirubin 0.6 (0.2-1.3) mg/dL AST 22 (17-59) U/L ALT 19 (4-49) U/L Alkaline Phosphatase 52 (38-126) U/L Total Protein 8.1 (6.3-8.2) g/dL Albumin 3.8 (3.5-5.0) g/dL
--- NOTE | 2024-02-03 14:15 | P.CONS ---
History of Present Illness - Reason for Consult Consult date: 02/03/24 Crohn's disease Requesting physician: Gerardo Pacheco - Chief Complaint Fever, abdominal pain - History of Present Illness Was a pleasant 33-year-old male with a long history of Crohn's disease diagnosed in [address] Finch and maintain on Humira however is in transition trying to start Remicade. He presents to the emergency department with complaints of abdominal pain and fever with a max temp of 103 F at home. He was hospitalized back in August 2023 with fever and had a CT of the abdomen pelvis that reported a large mesenteric mass in the lower abdomen. At that time there was no GI present and general surgery was following. Patient underwent biopsy that reported as abscess. Patient stabilized and was discharged. He had followed with Dr. Finch in October 2023 and initially was going to be recommended to see [facility] colorectal surgeon however repeat CAT scan in October 2023 reported improvement in size of abscess and symptoms. Patient symptoms had continued to stabilize and patient was going to transition to Remicade from Humira, with authorization in process. Over the last 2 days he started having abdominal pain followed by fever which was getting worse yesterday. His called Dr. Finch's office and patient had come to the emergency department for further evaluation. He is currently afebrile, he has been started on IV antibiotics. He denies any nausea or vomiting. He had a CT of the abdomen pelvis with contrast that reported thick-walled collection with air on CT scan from September 24, 2023 is no longer visualized and pelvis. Mild residual scar tissue in this location. This may have represented an abscess. There is a new thick-walled collection in the left lower quadrant measuring 8.0 x 4.3 cm concerning for a new abscess. Evaluation limited without oral contrast. Recommend repeat exam with oral contrast. Adjacent bowel is thickened, consistent with enteritis/Crohn's disease. General surgery is following and has ordered consultation to interventional radiology for abscess drainage. Review of Systems REVIEW OF SYSTEMS: CARDIOPULMONARY: No chest pain or shortness of breath. Gastrointestinal: Lower abdominal pain. No nausea or vomiting. No hematemesis, coffee-ground emesis. No rectal bleeding, or melena. GENITOURINARY: No dysuria or hematuria. MUSCULOSKELETAL: Reports normal range of motion. SKIN: No rashes. No jaundice. ENDOCRINE: No chills, fevers. No excessive weight gain or loss. No polydipsia or polyuria. PSYCHIATRIC: Unremarkable. NEUROLOGY: No change in mental status. Denies dizziness, headache. ENT: Vision unremarkable. CONSTITUTIONAL: No recent weight loss. No fever, chills, night sweats. Fever at home. Past Medical History Additional Past Medical History / Comment(s): HX OF CROHN'S. History of Any Multi-Drug Resistant Organisms: None Reported Additional Past Surgical History / Comment(s): COLONOSCOPIES, WISDOM TEETH EXTRACTION. Past Anesthesia/Blood Transfusion Reactions: Motion Sickness Past Psychological History: No Psychological Hx Reported Smoking Status: Never smoker Past Alcohol Use History: None Reported Past Drug Use History: None Reported - Past Family History Mother Family Medical History: No Reported History Medications and Allergies Home Medications Medication Instructions Recorded Confirmed Type Loratadine [Claritin] 10 mg PO DAILY 02/18/19 02/03/24 History Hyrimoz (Pf) Pen 40mg/0.4ml 40 mg SQ Q14D 02/03/24 02/03/24 History Allergies Allergy/AdvReac Type Severity Reaction Status Date / Time No Known Allergies Allergy Verified 02/03/24 07:09 Physical Exam Vitals: Vital Signs Temp Pulse Resp BP Pulse Ox 02/03/24 05:02 79 18 133/75 98 02/03/24 04:33 78 15 133/79 95 02/03/24 03:51 98.5 F 75 19 126/80 95 02/03/24 00:58 97 16 146/86 97 02/02/24 18:37 99.3 F 113 H 15 153/89 97 Intake and Output 02/02/24 02/03/24 02/03/24 22:59 06:59 14:59 Other: Voiding Method Toilet Weight 108.862 kg General appearance: The patient is alert, oriented, appears in no acute distress. HET: Head is normocephalic and atraumatic. Conjunctiva pink. Sclera anicteric. Neck: Supple without lymphadenopathy. Trachea midline. Heart: Regular. Lungs: Equal expansion, normal respiratory effort. Abdomen: Soft, left lower quadrant tenderness, nondistended. Skin: No rashes. No jaundice. Extremities: Normal skin color and turgor. No pedal edema. Neurological: No focal deficits. Alert and oriented x3. Results CBC & Chem 7: 05/13/24 09:52 02/03/24 09:52 Labs: Abnormal Lab Results - Last 24 Hours (Table) 02/02/24 02/02/24 02/02/24 Range/Units 18:49 22:11 22:11 WBC 18.2 H (3.8-10.6) k/uL RBC 4.27 L (4.30-5.90) m/uL Hgb 11.7 L (13.0-17.5) gm/dL Hct 36.2 L (39.0-53.0) % Neutrophils # 14.2 H (1.3-7.7) k/uL Monocytes # 1.4 H (0-1.0) k/uL Sodium 136 L (137-145) mmol/L Calcium (8.4-10.2) mg/dL Urine Protein 1+ H (Negative) Urine Blood Large H (Negative) Urine RBC 120 H (0-5) /hpf Urine Bacteria Occasional H (None) /hpf 02/03/24 02/03/24 Range/Units 09:52 09:52 WBC 14.0 H (3.8-10.6) k/uL RBC 3.70 L (4.30-5.90) m/uL Hgb 10.1 L (13.0-17.5) gm/dL Hct 32.0 L (39.0-53.0) % Neutrophils # 11.8 H (1.3-7.7) k/uL Monocytes # (0-1.0) k/uL Sodium (137-145) mmol/L Calcium 7.8 L (8.4-10.2) mg/dL Urine Protein (Negative) Urine Blood (Negative) Urine RBC (0-5) /hpf Urine Bacteria (None) /hpf CT scan - abdomen: report reviewed Assessment and Plan (1) Crohn's disease Narrative/Plan: 33-year-old male with history of Crohn's diagnosed in 2008 maintained on Humira who was hospitalized in August 2023 for abdominal abscess which improved with antibiotics. Patient has been following closely with gastroenterology symptoms had been improving a repeat CAT scan in October showed improvement in abscess size. Patient is in the process of insurance authorization to transition to Remicade. Patient has been having increased abdominal pain and fevers over the last few days duration. Admitted into the hospital with repeat CAT scan reporting a new abscess in the left lower quadrant measuring 8.0 x 4.3 cm. Recommend continued IV antibiotics, general surgery consultation and possible n eed for transfer to [facility] for colorectal specialist if needed. General surgery has consulted interventional radiology for drainage of the abscess. Gastroenterology will continue to follow along and make recommendations. Current Visit: Yes Status: Acute Code(s): K50.90 - CROHN'S DISEASE, UNSPECIFIED, WITHOUT COMPLICATIONS SNOMED Code(s): 98279991 (2) Intra-abdominal abscess Current Visit: Yes Status: Acute Code(s): K65.1 - PERITONEAL ABSCESS SNOMED Code(s): 95499024 Plan: 1. Continue symptomatic and supportive care 2. Continue IV antibiotics 3. Keep n.p.o. for now, except for medications and ice chips 4. Appreciate recommendations from general surgery 5. Interventional radiology consulted by general surgery for drainage of abscess 6. Rest of medical management per primary medical team 7. We will continue to follow and make recommendations along the way Thank you for this consultation, we will continue to follow. Dr. Vanessa Finch I agree with the dictator's note, documented as a scribe by Elvia Tatum.
[2024-02-04] MEDS: ONDANSETRON 4 MG/2 ML VIAL IVP PRN (07:40)
[2024-02-04 09:33] LABS: HCT 29.4 % (39.6-50.0); HGB 9.2 g/dL (13.0-17.0); MCH 27.4 pg (27.0-32.0); MCHC 31.3 g/dL (32.0-37.0); MCV 87.5 FL (80.0-97.0); Mean Platelet Volume 9.8 FL (9.5-12.2); NRBC Per 100 WBC 0 X 10*3/uL (0.00-0.01); Platelet Count 337 X 10*3/uL (140-440); RBC 3.36 X 10*6/uL (4.40-5.60); RDW 13.3 % (11.5-14.5); WBC 15.01 X 10*3/uL (4.50-10.00)
[2024-02-04 10:02] LABS: Basophils # (A) 0.05 X 10*3/uL (0.00-0.10); Basophils % (A) 0.3 %; Eosinophils # (A) 0.03 X 10*3/uL (0.04-0.35); Eosinophils % (A) 0.2 %; Lymphocytes # (A) 1.59 X 10*3/uL (0.90-5.00); Lymphocytes % (A) 10.6 %; Monocytes # (A) 1.53 X 10*3/uL (0.20-1.00); Monocytes % (A) 10.2 %; Neutrophils # (A) 11.71 X 10*3/uL (1.80-7.70); RBC Morphology Normal (Normal)
--- NOTE | 2024-02-04 14:29 | P.PN ---
Subjective Progress Note Date: 02/04/24 Hospital Course: 53-year-old male with history of Crohn's disease presenting with diarrhea, wors ening low back pain with intermittent fevers. On arrival, patient was tachycardic, otherwise hemodynamically stable. WBC 18.2. Lactate 0.7. Abdomen pelvis CT showed thick-walled collection in the left lower quadrant measuring 8 x 4.3 cm concerning for new abscess. General surgery and GI consulted. Started on IV antibiotics, pending IR drainage. Subjective: Patient seen and examined at bedside. No acute events overnight. Claims that his abdominal pain has improved. Pertinent positives and negatives as discussed above, a complete review of systems was performed and all other systems are negative. Vitals Signs Reviewed. General: Nontoxic, no distress, appears at stated age Derm: Warm, dry Head: Atraumatic, normocephalic, symmetric Eyes: EOMI, no lid lag, anicteric sclera Mouth: No lip lesion, mucus membranes moist Cardiovascular: S1S2 reg, no murmur Lungs: CTA bilateral, no rhonchi, no rales, no accessory muscle use Abdominal: Soft, mildly tender to palpation diffusely, no guarding, no appreciable organomegaly Ext: No gross muscle atrophy, no edema, no contractures Neuro: CN II-XI grossly intact, no focal neuro deficits Psych: Alert, oriented, appropriate affect Data Reviewed Today: Pertinent Labs: WBC 15.01, hemoglobin 9.2 Imaging: Imaging Assessment and Plan: Sepsis secondary to abdominal abscess History of Crohn's disease -Pending IR drainage -General surgery and GI following -Continue Zosyn 3.375 g IV every 8 hours -Blood cultures negative growth to date -Pain control with oral Tylenol as needed, IV Dilaudid as needed -Continue normal saline at 130 cc an hour -Currently on clear liquid diet DVT ppx: Subcu heparin Code status: Full code Anticipated discharge place: pending clinical course Anticipated discharge time: Pending clinical course Objective - Vital Signs Vital signs: Vital Signs Temp 98.3 F 02/04/24 07:37 Pulse 78 02/04/24 12:52 Resp 16 02/04/24 12:52 BP 116/79 02/04/24 12:52 Pulse Ox 98 02/04/24 12:52 FiO2 - Labs CBC & Chem 7: 02/04/24 03:18 02/03/24 09:52 Labs: Abnormal Lab Results - Last 24 Hours (Table) 02/04/24 Range/Units 03:18 WBC 15.01 H (4.50-10.00) X 10*3/uL RBC 3.36 L (4.40-5.60) X 10*6/uL Hgb 9.2 L (13.0-17.0) g/dL Hct 29.4 L (39.6-50.0) % MCHC 31.3 L (32.0-37.0) g/dL Immature Gran # 0.10 H (0.00-0.04) X 10*3/uL Neutrophils # 11.71 H (1.80-7.70) X 10*3/uL Monocytes # 1.53 H (0.20-1.00) X 10*3/uL Eosinophils # 0.03 L (0.04-0.35) X 10*3/uL Microbiology - Last 24 Hours (Table) 02/03/24 00:01 Blood Culture - Preliminary Blood 02/02/24 23:45 Blood Culture - Preliminary Blood
--- NOTE | 2024-02-04 16:26 | P.PN ---
Subjective Progress Note Date: 02/04/24 Principal diagnosis: Crohn's disease, intra abdominal abscess This is a pleasant 33-year-old male with a long history of Crohn's disease diagnosed in [address] Finch and maintain on Humira however is in transition trying to start Remicade. He presents to the emergency department with complaints of abdominal pain and fever with a max temp of 103 F at home. He was hospitalized back in August 2023 with fever and had a CT of the abdomen pelvis that reported a large mesenteric mass in the lower abdomen. At that time there was no GI present and general surgery was following. Patient underwent biopsy that reported as abscess. Patient stabilized and was discharged. He had followed with Dr. Finch in October 2023 and initially was going to be recommended to see [facility] colorectal surgeon however repeat CAT scan in October 2023 reported improvement in size of abscess and symptoms. Patient symptoms had continued to stabilize and patient was going to transition to Remicade from Humira, with authorization in process. Over the last 2 days he started having abdominal pain followed by fever which was getting worse yesterday. His called Dr. Finch's office and patient had come to the emergency department for further evaluation. He is currently afebrile, he has been started on IV antibiotics. He denies any nausea or vomiting. He had a CT of the abdomen pelvis with contrast that reported thick-walled collection with air on CT scan from September 24, 2023 is no longer visualized and pelvis. Mild residual scar tissue in this location. This may have represented an abscess. There is a new thick-walled collection in the left lower quadrant measuring 8.0 x 4.3 cm concerning for a new abscess. Evaluation limited without oral c ontrast. Recommend repeat exam with oral contrast. Adjacent bowel is thickened, consistent with enteritis/Crohn's disease. General surgery is following and has ordered consultation to interventional radiology for abscess drainage. 02/04/2024 Patient seen and examined today as a follow-up. He states abdominal pain improved with IV pain medication. No nausea or vomiting. He has been afebrile. Denies any fevers or chills. He was seen yesterday by general surgery who recommended interventional radiology consultation for abscess drainage however they did not feel comfortable and abscess drainage canceled. He remains on IV antibiotics. WBC 15 hemoglobin 9.2 platelet count 337,000 Objective - Vital Signs Vital signs: Vital Signs Temp 98.3 F 02/04/24 07:37 Pulse 88 02/04/24 07:37 Resp 20 02/04/24 07:37 BP 117/63 02/04/24 07:37 Pulse Ox 98 02/04/24 07:37 FiO2 - Exam General appearance: The patient is alert, oriented, appears in no acute distress. HET: Head is normocephalic and atraumatic. Conjunctiva pink. Sclera anicteric. Neck: Supple without lymphadenopathy. Abdomen: Soft, left lower quadrant tenderness, nondistended with bowel sounds. No guarding or rigidity. Extremities: Normal skin color and turgor. No pedal edema Skin: No rashes, no jaundice Neurological: No focal deficits. Alert and oriented. - Labs CBC & Chem 7: 02/04/24 03:18 02/03/24 09:52 Labs: Abnormal Lab Results - Last 24 Hours (Table) 02/03/24 02/03/24 Range/Units 09:52 09:52 WBC 14.0 H (3.8-10.6) k/uL RBC 3.70 L (4.30-5.90) m/uL Hgb 10.1 L (13.0-17.5) gm/dL Hct 32.0 L (39.0-53.0) % Neutrophils # 11.8 H (1.3-7.7) k/uL Calcium 7.8 L (8.4-10.2) mg/dL Assessment and Plan (1) Crohn's disease Narrative/Plan: 33-year-old male with history of Crohn's diagnosed in 2008 maintained on Humira who was hospitalized in August 2023 for abdominal abscess which improved with antibiotics. Patient has been following closely with gastroenterology symptoms had been improving a repeat CAT scan in October showed improvement in abscess size. Patient is in the process of insurance authorization [facility]. Patient has been having increased abdominal pain and fevers over the last few days duration. Admitted into the hospital with repeat CAT scan reporting a new abscess in the left lower quadrant measuring 8.0 x 4.3 cm. Recommend continued IV antibiotics, general surgery consultation and possible need for transfer to [facility] for colorectal specialist if needed. General surgery has consulted interventional radiology for drainage of the abscess. Gastroenterology will continue to follow along and make recommendations. Current Visit: Yes Status: Acute Code(s): K50.90 - CROHN'S DISEASE, UN SPECIFIED, WITHOUT COMPLICATIONS SNOMED Code(s): 11640488 (2) Intra-abdominal abscess Narrative/Plan: General surgery following. Patient scheduled for drainage of intra-abdominal abscess possible small bowel resection with Dr. Gill Current Visit: Yes Status: Acute Code(s): K65.1 - PERITONEAL ABSCESS SNOMED Code(s): 07623354 Plan: 1. Continue symptomatic and supportive care 2. Continue IV antibiotics 3. Patient may have clear liquid diet, n.p.o. after midnight 4. Appreciate recommendations from general surgery 5. Patient scheduled for abscess drainage and possible resection with general surgery 6. Rest of medical management per primary medical team 7. Discussed with patient Humira will be held until patient is healed from abscess and surgery. With further recommendations outpatient. Thank you for this consultation, we will continue to follow. Dr. Vanessa Finch I agree with the dictator's note, documented as a scribe by Elvia Tatum.
--- NOTE | 2024-02-04 16:31 | P.PN ---
Subjective Progress Note Date: 02/04/24 CHIEF COMPLAINT: Abdominal pain HISTORY OF PRESENT ILLNESS: Patient admitted to the hospital with abdominal pain and evidence of intra-abdominal abscess. INR could not drain abscess due to bowel being in the way. Patient reports that they still has the same abdominal pain denies any nausea or vomiting. Afebrile. WBC up from 14-15 Hgb 9.2 PHYSICAL EXAM: VITAL SIGNS: Reviewed. GENERAL: Well-developed in no acute distress. ABDOMEN: Soft. Nondistended. Diffuse tenderness but more tender left lower quadrant NEUROLOGIC: Alert and oriented. Cranial nerves II through XII grossly intact. ASSESSMENT: 1. Intra-abdominal abscess in the left lower quadrant noted on CT 2. Crohn's disease PLAN: -Patient scheduled for drainage of intra-abdominal abscess with possible small bowel resection tomorrow with Dr. Gill -N.p.o. after midnight -Continue antibiotics -Continue supportive care Physician Director Of Speech Pathology note has been reviewed by physician. Signing provider agrees with the documented findings, assessment, and plan of care. Objective - Vital Signs Vital signs: Vital Signs Temp 98.3 F 02/04/24 07:37 Pulse 94 02/04/24 14:56 Resp 16 02/04/24 14:56 BP 121/76 02/04/24 14:56 Pulse Ox 98 02/04/24 14:56 FiO2 - Labs CBC & Chem 7: 02/04/24 03:18 02/03/24 09:52 Labs: Abnormal Lab Results - Last 24 Hours (Table) 02/04/24 Range/Units 03:18 WBC 15.01 H (4.50-10.00) X 10*3/uL RBC 3.36 L (4.40-5.60) X 10*6/uL Hgb 9.2 L (13.0-17.0) g/dL Hct 29.4 L (39.6-50.0) % MCHC 31.3 L (32.0-37.0) g/dL Immature Gran # 0.10 H (0.00-0.04) X 10*3/uL Neutrophils # 11.71 H (1.80-7.70) X 10*3/uL Monocytes # 1.53 H (0.20-1.00) X 10*3/uL Eosinophils # 0.03 L (0.04-0.35) X 10*3/uL Microbiology - Last 24 Hours (Table) 02/03/24 00:01 Blood Culture - Preliminary Blood 02/02/24 23:45 Blood Culture - Preliminary Blood
[2024-02-04] MEDS: ACETAMINOPHEN TAB 325 MG TAB PO PRN (18:41)
[2024-02-05 07:42] LABS: Basophils % (A) 0 %; Eosinophils # (A) 0.1 k/uL (0-0.7); Eosinophils % (A) 1 %; HCT 29.5 % (39.0-53.0); HGB 9.4 gm/dL (13.0-17.5); Lymphocytes % (A) 9 %; MCH 27.7 pg (25.0-35.0); MCHC 31.9 g/dL (31.0-37.0); MCV 86.9 fL (80.0-100.0); Mean Platelet Volume 7.5; Monocytes # (A) 1.3 k/uL (0-1.0); Monocytes % (A) 11 %; Neutrophils # (A) 8.6 k/uL (1.3-7.7); Neutrophils % (A) 76 %; Platelet Count 352 k/uL (150-450); RDW 13.3 % (11.5-15.5); WBC 11.2 k/uL (3.8-10.6)
[2024-02-05 07:47] LABS: African American GFR (CKD) >90 (>60 ml/min/1.73 sqM); Anion Gap 3 mmol/L; Blood Urea Nitrogen 7 mg/dL (9-20); Calcium 8.1 mg/dL (8.4-10.2); Carbon Dioxide 29 mmol/L (22-30); Chloride 106 mmol/L (98-107); Glucose 91 mg/dL (74-99); Non-African American GFR(CKD) >90 (>60 ml/min/1.73 sqM); Potassium 3.8 mmol/L (3.5-5.1); Sodium 138 mmol/L (137-145)
--- NOTE | 2024-02-05 12:44 | P.PN ---
Subjective Progress Note Date: 02/05/24 Hospital Course: 53-year-old male with history of Crohn's disease presenting with diarrhea, wor sening low back pain with intermittent fevers. On arrival, patient was tachycardic, otherwise hemodynamically stable. WBC 18.2. Lactate 0.7. Abdomen pelvis CT showed thick-walled collection in the left lower quadrant measuring 8 x 4.3 cm concerning for new abscess. General surgery and GI consulted. Started on IV antibiotics, pending IR drainage. Subjective: Patient seen and examined at bedside. No acute events overnight. Claims that his abdominal pain has improved. Pertinent positives and negatives as discussed above, a complete review of systems was performed and all other systems are negative. Vitals Signs Reviewed. General: Nontoxic, no distress, appears at stated age Derm: Warm, dry Head: Atraumatic, normocephalic, symmetric Eyes: EOMI, no lid lag, anicteric sclera Mouth: No lip lesion, mucus membranes moist Cardiovascular: S1S2 reg, no murmur Lungs: CTA bilateral, no rhonchi, no rales, no accessory muscle use Abdominal: Soft, mildly tender to palpation diffusely, no guarding, no appreciable organomegaly Ext: No gross muscle atrophy, no edema, no contractures Neuro: CN II-XI grossly intact, no focal neuro deficits Psych: Alert, oriented, appropriate affect Data Reviewed Today: Pertinent Labs: WBC 11.2, hgb 9.4, creatinine 1.05 Imaging: No new imaging Assessment and Plan: Sepsis secondary to abdominal abscess History of Crohn's disease -Pending IR drainage -General surgery and GI following -Continue Zosyn 3.375 g IV every 8 hours -Blood cultures negative growth to date -Pain control with oral Tylenol as needed, IV Dilaudid as needed -Continue normal saline at 130 cc an hour DVT ppx: Subcu heparin Code status: Full code Anticipated discharge place: pending clinical course Anticipated discharge time: Pending clinical course Objective - Vital Signs Vital signs: Vital Signs Temp 97.9 F 02/05/24 11:55 Pulse 94 02/05/24 11:55 Resp 18 02/05/24 11:55 BP 142/78 02/05/24 11:55 Pulse Ox 98 02/05/24 11:55 FiO2 Intake & Output 05/14/24 05/15/24 05/15/24 18:59 06:59 18:59 Intake Total 880 130 Balance 880 130 Weight 105 kg Intake: Intake, IV Titration 880 130 Amount Piperacillin-Tazobactam 3 100 .375 gm In Sodium Chloride 0.9% 100 ml @ 25 mls/hr IVPB Q8HR [facility] Rx# :[id number] Sodium Chloride 0.9% 1, 780 130 000 ml @ 130 mls/hr IV . Q7H42M [facility] Rx#:[id number] Other: Voiding Method Toilet - Labs CBC & Chem 7: 02/05/24 06:39 02/05/24 06:39 Labs: Abnormal Lab Results - Last 24 Hours (Table) 02/05/24 02/05/24 Range/Units 06:39 06:39 WBC 11.2 H (3.8-10.6) k/uL RBC 3.40 L (4.30-5.90) m/uL Hgb 9.4 L (13.0-17.5) gm/dL Hct 29.5 L (39.0-53.0) % Neutrophils # 8.6 H (1.3-7.7) k/uL Monocytes # 1.3 H (0-1.0) k/uL BUN 7 L (9-20) mg/dL Calcium 8.1 L (8.4-10.2) mg/dL Microbiology - Last 24 Hours (Table) 02/03/24 00:01 Blood Culture - Preliminary Blood 02/02/24 23:45 Blood Culture - Preliminary Blood
[2024-02-05] MEDS: LACTATED RINGERS 1,000 ML IV ONE ×3 (12:49→15:15)
--- NOTE | 2024-02-05 12:50 | P.PN ---
Subjective Progress Note Date: 02/05/24 Principal diagnosis: Crohn's disease, intra abdominal abscess This is a pleasant 33-year-old male with a long history of Crohn's disease diagnosed in [address] Finch and maintain on Humira however is in transition trying to start Remicade. He presents to the emergency department with complaints of abdominal pain and fever with a max temp of 103 F at home. He was hospitalized back in August 2023 with fever and had a CT of the abdomen pelvis that reported a large mesenteric mass in the lower abdomen. At that time there was no GI present and general surgery was following. Patient underwent biopsy that reported as abscess. Patient stabilized and was discharged. He had followed with Dr. Finch in October 2023 and initially was going to be recommended to see [facility] colorectal surgeon however repeat CAT scan in October 2023 reported improvement in size of abscess and symptoms. Patient symptoms had continued to stabilize and patient was going to transition to Remicade from Humira, with authorization in process. Over the last 2 days he started having abdominal pain followed by fever which was getting worse yesterday. His called Dr. Finch's office and patient had come to the emergency department for further evaluation. He is currently afebrile, he has been started on IV antibiotics. He denies any nausea or vomiting. He had a CT of the abdomen pelvis with contrast that reported thick-walled collection with air on CT scan from September 24, 2023 is no longer visualized and pelvis. Mild residual scar tissue in this location. This may have represented an abscess. There is a new thick-walled collection in the left lower quadrant measuring 8.0 x 4.3 cm concerning for a new abscess. Evaluation limited without oral c ontrast. Recommend repeat exam with oral contrast. Adjacent bowel is thickened, consistent with enteritis/Crohn's disease. General surgery is following and has ordered consultation to interventional radiology for abscess drainage. 02/04/2024 Patient seen and examined today as a follow-up. He states abdominal pain improved with IV pain medication. No nausea or vomiting. He has been afebrile. Denies any fevers or chills. He was seen yesterday by general surgery who recommended interventional radiology consultation for abscess drainage however they did not feel comfortable and abscess drainage canceled. He remains on IV antibiotics. WBC 15 hemoglobin 9.2 platelet count 337,000 1524 Patient seen and examined today as a follow-up. He states abdominal pain slightly improved. No nausea or vomiting. He did have low-grade temp max 100.3 yesterday evening. He has been afebrile since. He remains on IV antibiotics. He is scheduled to undergo surgery today. Objective - Vital Signs Vital signs: Vital Signs Temp 97.6 F 02/05/24 07:09 Pulse 81 02/05/24 07:09 Resp 18 02/05/24 07:09 BP 135/77 02/05/24 07:09 Pulse Ox 95 02/05/24 07:09 FiO2 Intake & Output 02/04/24 02/05/24 02/05/24 18:59 06:59 18:59 Intake Total 880 Balance 880 Weight 105 kg Intake: Intake, IV Titration 880 Amount Piperacillin-Tazobactam 3 100 .375 gm In Sodium Chloride 0.9% 100 ml @ 25 mls/hr IVPB Q8HR [facility] Rx# :[id number] Sodium Chloride 0.9% 1, 780 000 ml @ 130 mls/hr IV . Q7H42M [facility] Rx#:[id number] Other: Voiding Method Toilet - Exam General appearance: The patient is alert, oriented, appears in no acute distress. HET: Head is normocephalic and atraumatic. Conjunctiva pink. Sclera anicteric. Neck: Supple without lymphadenopathy. Abdomen: Soft, left lower quadrant tenderness, nondistended with bowel sounds. No guarding or rigidity. Extremities: Normal skin color and turgor. No pedal edema Skin: No rashes, no jaundice Neurological: No focal deficits. Alert and oriented. - Labs CBC & Chem 7: 02/05/24 06:39 02/05/24 06:39 Labs: Abnormal Lab Results - Last 24 Hours (Table) 02/04/24 02/05/24 02/05/24 Range/Units 03:18 06:39 06:39 WBC 15.01 H 11.2 H (4.50-10.00) X 10*3/uL RBC 3.36 L 3.40 L (4.40-5.60) X 10*6/uL Hgb 9.2 L 9.4 L (13.0-17.0) g/dL Hct 29.4 L 29.5 L (39.6-50.0) % MCHC 31.3 L (32.0-37.0) g/dL Immature Gran # 0.10 H (0.00-0.04) X 10*3/uL Neutrophils # 11.71 H 8.6 H (1.80-7.70) X 10*3/uL Monocytes # 1.53 H 1.3 H (0.20-1.00) X 10*3/uL Eosinophils # 0.03 L (0.04-0.35) X 10*3/uL BUN 7 L (9-20) mg/dL Calcium 8.1 L (8.4-10.2) mg/dL Microbiology - Last 24 Hours (Table) 02/03/24 00:01 Blood Culture - Preliminary Blood 02/02/24 23:45 Blood Culture - Preliminary Blood Assessment and Plan (1) Crohn's disease Narrative/Plan: 33-year-old male with history of Crohn's diagnosed in 2008 maintained on Humira who was hospitalized in August 2023 for abdominal abscess which improved with antibiotics. Patient has been following closely with gastroenterology symptoms had been improving a repeat CAT scan in October showed improvement in abscess size. Patient is in the process of insurance authorization to transition to [facility]. Patient has been having increased abdominal pain and fevers over the last few days duration. Admitted into the hospital with repeat CAT scan reporting a new abscess in the left lower quadrant measuring 8.0 x 4.3 cm. Recommend continued IV antibiotics, general surgery consultation and possible need for transfer to [facility] for colorectal specialist if needed. General surgery has consulted interventional radiology for drainage of the abscess. Gastroenterology will continue to follow along and make recommendations. Current Visit: Yes Status: Acute Code(s): K50.90 - CROHN'S DISEASE, UNSPECIFIED, WITHOUT COMPLICATIONS SNOMED Code(s): 46970343 (2) Intra-abdominal abscess Narrative/Plan: General surgery following. Patient scheduled for drainage of intra-abdominal abscess possible small bowel resection with Dr. Gill Current Visit: Yes Status: Acute Code(s): K65.1 - PERITONEAL ABSCESS SNO MED Code(s): 56979343 Plan: 1. Continue symptomatic and supportive care 2. Continue IV antibiotics 3. Patient may have clear liquid diet, n.p.o. after midnight 4. Appreciate recommendations from general surgery 5. Patient scheduled for abscess drainage and possible resection with general surgery 6. Rest of medical management per primary medical team 7. Discussed with patient Humira will be held until patient is healed from abscess and surgery. With further recommendations outpatient. Thank you for this consultation, we will continue to follow. Dr. Vanessa Finch I agree with the dictator's note, documented as a scribe by Elvia Tatum.
[2024-02-05] MEDS: DEXAMETHASONE SOD PHOSPHATE 4 MG/ML 1 ML VIAL IV ONE ×2 (13:10→18:30)
[2024-02-05] MEDS: MIDAZOLAM 2 MG/2 ML VIAL IVP ONE (13:38)
[2024-02-05] MEDS: fentaNYL (PF) 50 MCG/1 ML VIAL IVP ONE (13:38)
[2024-02-05] MEDS ORDERED: ROPIVACAINE 5 MG/ML 30 ML VIAL ONE (14:14)
[2024-02-05] MEDS ORDERED: KETAMINE HCL IN 0.9 % NACL 50 MG/5 ML SYRINGE ONE (14:14)
[2024-02-05] MEDS ORDERED: HYDROmorphone (PF) 1 MG/ML ONE (14:14)
[2024-02-05] MEDS ORDERED: LIDOCAINE 1% INJ 10MG/ML (20 ML MDV) ONE (14:14)
[2024-02-05] MEDS ORDERED: PROPOFOL 10 MG/ML 20 ML VIAL IV ONE (14:14)
[2024-02-05] MEDS ORDERED: SUCCINYLCHOLINE CHLORIDE 200 MG/10 ML VIAL IV ONE (14:14)
[2024-02-05] MEDS ORDERED: NEOSTIGMINE 1 MG/ML 10 ML VIAL ONE (14:14)
[2024-02-05] MEDS ORDERED: SODIUM CHLORIDE 0.9% (PF) 10 ML VIAL ONE (14:14)
[2024-02-05] MEDS ORDERED: PHENYLEPHRINE 10 MG/ML VIAL ONE (14:14)
[2024-02-05] MEDS ORDERED: fentaNYL (PF) 50 MCG/ML 2 ML AMP ONE (14:14)
[2024-02-05] MEDS ORDERED: GLYCOPYRROLATE 0.2 MG/ML 2 ML VIAL ONE (14:14)
[2024-02-05] MEDS ORDERED: MIDAZOLAM 2 MG/2 ML VIAL ONE (14:14)
[2024-02-05] MEDS ORDERED: ROCURONIUM 10 MG/ML (5 ML VIAL) IV ONE (14:14)
--- NOTE | 2024-02-05 15:03 | P.ANPRN ---
Procedure Note - Anesthesia - Nerve Block Performed Bilateral Rectus Abdominis Single Time Out Performed: Yes ([id number]) Date of Procedure: 02/05/24 Procedure Start Time: 13:38 Procedure Stop Time: 13:42 Location of Patient: PreOp Indication: Acute Post-Operative Pain, Requested by Surgeon Specifically requested for management of pain by DrRut: Ramon iGll Sedation Type: Sedate with meaningful contact maintained Preparation: Sterile Prep Position: Supine Catheter: None Needle Types: Pajunk Needle Gauge: 21 Ultrasound used to visualize needle placement: Yes Ultrasound used to observe medication spread: Yes Injectate: 0.5% Ropivacaine (see comment for volume) (15cc + 10cc nacl pf each side) Blood Aspirated: No Pain Paresthesia on Injection Noted: No Resistance on Injection: Normal Image Stored and Saved: Yes Events: Uneventful and Well Tolerated
[2024-02-05] MEDS: HYDROmorphone 0.5 MG/0.5 ML SYRINGE IVP ONE (16:22)
[2024-02-05] MEDS: fentaNYL (PF) 50 MCG/ML 2 ML AMP IV PRN (16:45)
[2024-02-05] MEDS: LACTATED RINGERS 1,000 ML IV SCH (18:30)
[2024-02-06 08:19] LABS: African American GFR (CKD) >90 (>60 ml/min/1.73 sqM); Anion Gap 12 mmol/L; Blood Urea Nitrogen 14 mg/dL (9-20); Calcium 8.3 mg/dL (8.4-10.2); Carbon Dioxide 21 mmol/L (22-30); Chloride 109 mmol/L (98-107); Glucose 115 mg/dL (74-99); Non-African American GFR(CKD) >90 (>60 ml/min/1.73 sqM); Potassium 4.4 mmol/L (3.5-5.1); Sodium 142 mmol/L (137-145)
[2024-02-06 08:31] LABS: Basophils % (A) 0 %; Eosinophils % (A) 0 %; HCT 32.4 % (39.0-53.0); HGB 10.3 gm/dL (13.0-17.5); Hypochromasia Slight; Lymphocytes # (A) 0.8 k/uL (1.0-4.8); Lymphocytes % (A) 6 %; MCH 27.8 pg (25.0-35.0); MCHC 31.9 g/dL (31.0-37.0); MCV 87.2 fL (80.0-100.0); Monocytes # (A) 0.6 k/uL (0-1.0); Monocytes % (A) 5 %; Neutrophils # (A) 10.8 k/uL (1.3-7.7); Neutrophils % (A) 87 %; Platelet Count 424 k/uL (150-450); RBC 3.72 m/uL (4.30-5.90); RDW 13.2 % (11.5-15.5); WBC 12.4 k/uL (3.8-10.6)
--- NOTE | 2024-02-06 10:18 | P.OP ---
Date of Procedure: 02/06/24 Preoperative Diagnosis: Crohn's disease Abdominal abscess Postoperative Diagnosis: same Procedure(s) Performed: eexploratorye laparotomy Drainage of abscess Small bowel resection Anesthesia: CIARA Surgeon: Ramon Gill Estimated Blood Loss (ml): 25 Pathology: other (small bowel) Condition: stable Disposition: PACU Description of Procedure: the patient's placed on the operating table in the supine position. She received general anesthesia. His abdomen was prepped and draped usual sterile fashion. The abdomen was entered through midline incision. Upon entering the abdomen there was some ascites. The small bowel appeared to be dilated. There was a mass of matted small bowel in the left side of the abdomen. With blunt dissection the mass was mobilized medially. The abscess cavity is entered. Approximately 40 mL of purulent fluid was aspirated. The areas also cultured. The matted bowel appeared to be related to Crohn's disease. The bowel was then transected proximally distally using the GI stapler. And then using the Harmonic scissors the mesentery of the matted mass of bowel was divided. A [id number] functional end-to-end staple S was then created between the proximal distal limbs of the jejunum. A 306 sutures as a crotch stitch. The bowel was further run. The all bowel was also adherent to the sigmoid colon. This was left observed. No dissection was performed. There appeared to be no incision any other bowel obstruction. The abdomen was irrigated tubing seen. The fascia was closed with looped #1. Skin was closed tamica. Patient top she will present to recovery room in stable condition.
[2024-02-06] MEDS: HYDROmorphone 1 MG/ML 1 ML SYRINGE IVP PRN (11:16)
--- NOTE | 2024-02-06 12:03 | P.PN ---
Subjective Progress Note Date: 02/06/24 CHIEF COMPLAINT: Abdominal pain HISTORY OF PRESENT ILLNESS: Patient is postop day 1 status post exploratory laparotomy, drainage of abscess and small bowel resection. Patient reports his pain is controlled. Denies any nausea or vomiting. No flatus. Afebrile. WBC is up from 11.2-12.4 hemoglobin 9.3 creatinine 0.89 PHYSICAL EXAM: VITAL SIGNS: Reviewed. GENERAL: Well-developed in no acute distress. ABDOMEN: Soft. Nondistended. Tenderness with palpation at incision site. Incisional dressing clean dry and intact. NEUROLOGIC: Alert and oriented. Cranial nerves II through XII grossly intact. ASSESSMENT: 1. Crohn's disease 2. Abdominal abscess PLAN: -Keep patient n.p.o. -Continue pain management -Continue IV fluids -Continue antibiotics -Repeat labs in AM -Incentive spirometer ordered -Change surgical dressing to Optifoam silver -Follow-up on culture results -GI prophylaxis Protonix and DVT prophylaxis subcu heparin Physician Artificial Teeth Inspector note has been reviewed by physician. Signing provider agrees with the documented findings, assessment, and plan of care. Objective - Vital Signs Vital signs: Vital Signs Temp 97.7 F 02/06/24 07:08 Pulse 80 02/06/24 07:08 Resp 18 02/06/24 07:08 BP 141/82 02/06/24 07:08 Pulse Ox 96 02/06/24 07:08 FiO2 Intake & Output 02/05/24 02/06/24 02/06/24 18:59 06:59 18:59 Intake Total 1930 0 Output Total 200 450 Balance 1730 -450 Weight 104.54 kg Intake: IV 1800 Intake, IV Titration 130 Amount Sodium Chloride 0.9% 1, 130 000 ml @ 130 mls/hr IV . Q7H42M [facility] Rx#:[id number] Oral 0 Output: Urine 100 450 Estimated Blood Loss 100 Other: Voiding Method Toilet Indwelling Catheter - Labs CBC & Chem 7: 02/06/24 06:53 02/06/24 06:53 Labs: Abnormal Lab Results - Last 24 Hours (Table) 02/06/24 02/06/24 Range/Units 06:53 06:53 WBC 12.4 H (3.8-10.6) k/uL RBC 3.72 L (4.30-5.90) m/uL Hgb 10.3 L (13.0-17.5) gm/dL Hct 32.4 L (39.0-53.0) % Neutrophils # 10.8 H (1.3-7.7) k/uL Lymphocytes # 0.8 L (1.0-4.8) k/uL Chloride 109 H (98-107) mmol/L Carbon Dioxide 21 L (22-30) mmol/L Glucose 115 H (74-99) mg/dL Calcium 8.3 L (8.4-10.2) mg/dL Microbiology - Last 24 Hours (Table) 02/03/24 00:01 Blood Culture - Preliminary Blood 02/02/24 23:45 Blood Culture - Preliminary Blood
--- NOTE | 2024-02-06 14:29 | P.PN ---
Subjective Progress Note Date: 02/06/24 Principal diagnosis: Crohn's disease, intra abdominal abscess This is a pleasant 33-year-old male with a long history of Crohn's disease diagnosed in [address] Finch and maintain on Humira however is in transition trying to start Stelara. He presents to the emergency department with complaints of abdominal pain and fever with a max temp of 103 F at home. He was hospitalized back in August 2023 with fever and had a CT of the abdomen pelvis that reported a large mesenteric mass in the lower abdomen. At that time there was no GI present and general surgery was following. Patient underwent biopsy that reported as abscess. Patient stabilized and was discharged. He had followed with Dr. Finch in October 2023 and initially was going to be recommended to see [facility] colorectal surgeon however repeat CAT scan in October 2023 reported improvement in size of abscess and symptoms. Patient symptoms had continued to stabilize and patient was going to transition to Remicade from Humira, with authorization in process. Over the last 2 days he started having abdominal pain followed by fever which was getting worse yesterday. His called Dr. Finch's office and patient had come to the emergency department for further evaluation. He is currently afebrile, he has been started on IV antibiotics. He denies any nausea or vomiting. He had a CT of the abdomen pelvis with contrast that reported thick-walled collection with air on CT scan from September 24, 2023 is no longer visualized and pelvis. Mild residual scar tissue in this location. This may have represented an abscess. There is a new thick-walled collection in the left lower quadrant measuring 8.0 x 4.3 cm concerning for a new abscess. Evaluation limited without oral co ntrast. Recommend repeat exam with oral contrast. Adjacent bowel is thickened, consistent with enteritis/Crohn's disease. General surgery is following and has ordered consultation to interventional radiology for abscess drainage. 02/04/2024 Patient seen and examined today as a follow-up. He states abdominal pain improved with IV pain medication. No nausea or vomiting. He has been afebrile. Denies any fevers or chills. He was seen yesterday by general surgery who recommended interventional radiology consultation for abscess drainage however they did not feel comfortable and abscess drainage canceled. He remains on IV antibiotics. WBC 15 hemoglobin 9.2 platelet count 337,000 1524 Patient seen and examined today as a follow-up. He states abdominal pain slightly improved. No nausea or vomiting. He did have low-grade temp max 100.3 yesterday evening. He has been afebrile since. He remains on IV antibiotics. He is scheduled to undergo surgery today. Objective - Vital Signs Vital signs: Vital Signs Temp 97.7 F 02/06/24 07:08 Pulse 80 02/06/24 07:08 Resp 18 02/06/24 07:08 BP 141/82 02/06/24 07:08 Pulse Ox 96 02/06/24 07:08 FiO2 Intake & Output 02/05/24 02/06/24 02/06/24 18:59 06:59 18:59 Intake Total 1930 0 Output Total 200 450 Balance 1730 -450 Weight 104.54 kg Intake: IV 1800 Intake, IV Titration 130 Amount Sodium Chloride 0.9% 1, 130 000 ml @ 130 mls/hr IV . Q7H42M [facility] Rx#:[id number] Oral 0 Output: Urine 100 450 Estimated Blood Loss 100 Other: Voiding Method Toilet Indwelling Catheter - Exam General appearance: The patient is alert, oriented, appears in no acute distress. HET: Head is normocephalic and atraumatic. Conjunctiva pink. Sclera anicteric. Neck: Supple without lymphadenopathy. Abdomen: Soft, left lower quadrant tenderness, nondistended with bowel sounds. No guarding or rigidity. Extremities: Normal skin color and turgor. No pedal edema Skin: No rashes, no jaundice Neurological: No focal deficits. Alert and oriented. - Labs CBC & Chem 7: 02/06/24 06:53 02/06/24 06:53 Labs: Abnormal Lab Results - Last 24 Hours (Table) 02/06/24 02/06/24 Range/Units 06:53 06:53 WBC 12.4 H (3.8-10.6) k/uL RBC 3.72 L (4.30-5.90) m/uL Hgb 10.3 L (13.0-17.5) gm/dL Hct 32.4 L (39.0-53.0) % Neutrophils # 10.8 H (1.3-7.7) k/uL Lymphocytes # 0.8 L (1.0-4.8) k/uL Chloride 109 H (98-107) mmol/L Carbon Dioxide 21 L (22-30) mmol/L Glucose 115 H (74-99) mg/dL Calcium 8.3 L (8.4-10.2) mg/dL Microbiology - Last 24 Hours (Table) 02/03/24 00:01 Blood Culture - Preliminary Blood 02/02/24 23:45 Blood Culture - Preliminary Blood Assessment and Plan (1) Crohn's disease Narrative/Plan: 33-year-old male with history of Crohn's diagnosed in 2008 maintained on Humira who was hospitalized in August 2023 for abdominal abscess which improved with antibiotics. Patient has been following closely with gastroenterology symptoms had been improving a repeat CAT scan in October showed improvement in abscess size. Patient is in the process of insurance authorization to transition to [facility]. Patient has been having increased abdominal pain and fevers over the last few days duration. Admitted into the hospital with repeat CAT scan reporting a new abscess in the left lower quadrant measuring 8.0 x 4.3 cm. Recommend continued IV antibiotics, general surgery was consulted and patient has undergone small bowel resection and abscess drainage. Patient to follow-up with gastroenterology in 5 to 6 weeks. Discussed with patient and to hold Humira. Current Visit: Yes Status: Acute Code(s): K50.90 - CROHN'S DISEASE, UNSPECIFIED, WITHOUT COMPLICATIONS SNOMED Code(s): 91726230 (2) Intra-abdominal abscess Narrative/Plan: General surgery following. Patient scheduled for drainage of intra-abdominal abscess possible small bowel resection with Dr. Gill Current Visit: Yes Status: Acute Code(s): K65.1 - PERITONEAL ABSCESS SNOMED Code(s): 93764884 Plan: 1. Continue symptomatic and supportive care 2. Continue IV antibiotics 3. Patient is postop day #1 for abscess drainage and small bowel resection 4. Continue with recommendations from general surgery 5. Discussed with patient and Humira will be held until patient is healed from abscess and surgery. With further recommendations outpatient. Thank you for this consultation, we will sign off at this time. Dr. Vanessa Finch I agree with the dictator's note, documented as a scribe by Elvia Tatum.
--- NOTE | 2024-02-06 17:08 | P.PN ---
Subjective Progress Note Date: 02/06/24 Hospital course: Patient is a 33-year-old male with a history of Crohn's disease presented to the hospital on 02/02/2024 secondary to concerns of diarrhea, back pain, and fevers. To the hospital, patient underwent evaluation in the ER. Vital signs upon arrival show blood pressure 153/89, heart rate 113, respiratory rate 15, temp 99.3 F, and SpO2 of 97% on room air. Labs were completed and reviewed. CBC showed leukocytosis with WBC count of 18.2 and normocytic anemia with hemoglobin of 11.7. BMP was unremarkable. Lactate normal findings at 0.7. Liver profile normal findings. Urinalysis positive for 120 RBCs and protein otherwise negative for infection. Influenza A, influenza B, RSV, and COVID were all negative. KUB was completed reporting nonspecific bowel gas pattern without radiographic evidence for acute process. CT abdomen and pelvis completed revealing showing concerns for possible abscess with a new thick walled collection in the left lower quadrant measuring 8 x 4.3 cm also concerning of abscess and a hepatic lobe cyst measuring 2.1 cm. Patient was admitted under our services with consultation to general surgery team purchasing expeditor. On 02/05/2024 patient underwent drainage of intra-abdominal abscess with bowel resection by Dr. Gill. Physical exam: Patient was seen and fully evaluated at bedside this morning. He reports moderate postoperative pain worse with movement. He denies experiencing any nausea or vomiting. He does report passing flatus but denies having bowel movement since surgical procedure was completed. Patient remains n.p.o. at this time pending advancement of diet by general surgery team. Vital signs reviewed and stable. General: Nontoxic, no distress and appears stated age. Derm: Skin warm and dry, normal coloration for ethnicity. Head: Atraumatic, normocephalic and symmetric. Eyes: EOMs intact, no lid lag, and anicteric sclera Mouth: no lip lesions, mucus membranes moist Cardiovascular: regular rate and rhythm with normal S1S2, no murmur, positive posterior tibial pulses bilaterally, and cap refill < 2 seconds. Lungs: Respirations even, regular, and unlabored on room air. Lungs CTA randa aterally, no rhonchi, no rales, no wheezing, and no accessory muscle usage. Abdominal: soft, no guarding. Postoperative dressing midline abdomen, clean, dry, and intact. Abdominal binder in place. Ext: ROM intact. No gross muscle atrophy, no edema, no contractures Neuro: Speech clear, face symmetrical and CN II-XII grossly intact with no noted focal neuro deficits Psych: Alert and oriented to person, place, time, and situation. Appropriate and pleasant affect. Assessment and Plan of Care: Sepsis secondary to abdominal abscess History of Crohn's disease Leukocytosis Normocytic anemia -On 02/05/2024 patient underwent drainage of intra-abdominal abscess with bowel resection by Dr. Gill. -General surgery following, diet to be advanced as directed by general surgery team. -Gastroenterology following, reviewed documentation in chart -Continue Zosyn 3.375 g IV every 8 hours -Blood cultures negative growth to date -Pain control with oral Tylenol as needed for mild pain, IV Dilaudid 0.5 mg every 3 hours as needed for moderate pain, and 1 mg IVP as needed for severe pain. -Continue normal saline at 130 mL an hour -Wound Cultures pending Data and imaging reviewed: Morning labs reviewed. CBC showing leukocytosis with WBC count of 12.4 normocytic anemia with hemoglobin stable at 10.3. BMP showing hyperchloremia with chloride of 109, hypocarbia with bicarb of 21 and anion gap of 12. Renal function unremarkable. Blood glucose 115. Morning labs reviewed. Blood pressure 145/82, heart rate 100, respiratory rate 18, temp 97.9 F, and SpO2 of 95% on room air. CODE STATUS: Full code DVT prophylaxis: Heparin Anticipated discharge date: Pending clinical course Anticipated discharge place: Pending clinical course Patient was seen independently by Nurse Pracitioner. This document was prepared using [employer] dictation software. Please allow for errors in put in beat adjuster, while rare they do occur. Mihir Lyon NP rendered care for this patient independently, reviewed the findings and plan as documented in the note above. I did not physically speak with or examine the patient on this date. - Patient is on humara which will be held until patient completes treatment for intra abdominal abscess. mild hyperchloremic metabolic acidosis due to NPO state with transition IVF to D5 0.45NS Objective - Vital Signs Vital signs: Vital Signs Temp 97.7 F 02/06/24 07:08 Pulse 80 02/06/24 07:08 Resp 18 02/06/24 07:08 BP 141/82 02/06/24 07:08 Pulse Ox 96 02/06/24 07:08 FiO2 Intake & Output 02/05/24 02/06/24 02/06/24 18:59 06:59 18:59 Intake Total 1930 0 Output Total 200 450 Balance 1730 -450 Weight 104.54 kg Intake: IV 1800 Intake, IV Titration 130 Amount Sodium Chloride 0.9% 1, 130 000 ml @ 130 mls/hr IV . Q7H42M [facility] Rx#:[id number] Oral 0 Output: Urine 100 450 Estimated Blood Loss 100 Other: Voiding Method Toilet Indwelling Catheter - Labs CBC & Chem 7: 02/06/24 06:53 02/06/24 06:53 Labs: Abnormal Lab Results - Last 24 Hours (Table) 02/06/24 02/06/24 Range/Units 06:53 06:53 WBC 12.4 H (3.8-10.6) k/uL RBC 3.72 L (4.30-5.90) m/uL Hgb 10.3 L (13.0-17.5) gm/dL Hct 32.4 L (39.0-53.0) % Neutrophils # 10.8 H (1.3-7.7) k/uL Lymphocytes # 0.8 L (1.0-4.8) k/uL Chloride 109 H (98-107) mmol/L Carbon Dioxide 21 L (22-30) mmol/L Glucose 115 H (74-99) mg/dL Calcium 8.3 L (8.4-10.2) mg/dL Microbiology - Last 24 Hours (Table) 02/03/24 00:01 Blood Culture - Preliminary Blood 02/02/24 23:45 Blood Culture - Preliminary Blood
[2024-02-06] MEDS: DEXTROSE 5%-0.45% NACL 1,000 ML IV SCH (20:42)
[2024-02-07] MEDS: SODIUM CHLORIDE 0.9% 1,000 ML IV ONE (02:20)
[2024-02-07] MEDS: SODIUM CHLORIDE 0.9% 1,000 ML IV SCH (02:21)
[2024-02-07 08:30] LABS: Basophils # (A) 0.02 X 10*3/uL (0.00-0.10); Basophils % (A) 0.2 %; Eosinophils # (A) 0.01 X 10*3/uL (0.04-0.35); Eosinophils % (A) 0.1 %; HCT 30.5 % (39.6-50.0); HGB 9.6 g/dL (13.0-17.0); Lymphocytes % (A) 6.5 %; MCH 26.5 pg (27.0-32.0); MCHC 31.5 g/dL (32.0-37.0); MCV 84.3 FL (80.0-97.0); Mean Platelet Volume 9.2 FL (9.5-12.2); Monocytes # (A) 0.96 X 10*3/uL (0.20-1.00); Monocytes % (A) 7.8 %; NRBC Per 100 WBC 0 X 10*3/uL (0.00-0.01); Neutrophils # (A) 10.46 X 10*3/uL (1.80-7.70); Neutrophils % (A) 84.8 %; Platelet Count 447 X 10*3/uL (140-440); RBC 3.62 X 10*6/uL (4.40-5.60); RDW 13.5 % (11.5-14.5); WBC 12.33 X 10*3/uL (4.50-10.00)
[2024-02-07 08:52] LABS: Blood Urea Nitrogen 16.4 mg/dL (9.0-27.0); Calcium 8.2 mg/dL (8.7-10.3); Carbon Dioxide 26.3 mmol/L (21.6-31.8); Chloride 107 mmol/L (96-109); Glucose 142 mg/dL (70-110); Potassium 4.2 mmol/L (3.5-5.5); Sodium 142 mmol/L (135-145)
[2024-02-07 12:25] VITALS: BMI 30.4
--- NOTE | 2024-02-07 13:35 | P.PN ---
Subjective Progress Note Date: 02/07/24 CHIEF COMPLAINT: Abdominal pain HISTORY OF PRESENT ILLNESS: Patient is postop day #2 status post exploratory laparotomy, drainage of abscess and small bowel resection. Patient reports his pain is controlled. Denies any nausea or vomiting. Denies any bowel activity. Afebrile. WBC same at 12.3 Hgb 9.6 platelets 447 PHYSICAL EXAM: VITAL SIGNS: Reviewed. GENERAL: Well-developed in no acute distress. ABDOMEN: Soft. mildly distended. Tenderness with palpation at incision site. Incisional dressing changed and clean dry and intact. NEUROLOGIC: Alert and oriented. Cranial nerves II through XII grossly intact. ASSESSMENT: 1. Crohn's disease 2. Abdominal abscess PLAN: -Keep patient n.p.o. -Continue pain management -Continue IV fluids -Continue antibiotics -Repeat labs in AM -Incentive spirometer ordered -Follow-up on culture results -GI prophylaxis Protonix and DVT prophylaxis subcu heparin Physician Wood Scaler note has been reviewed by physician. Signing provider agrees with the documented findings, assessment, and plan of care. Objective - Vital Signs Vital signs: Vital Signs Temp 99.1 F 02/07/24 12:05 Pulse 116 H 02/07/24 12:05 Resp 18 02/07/24 12:05 BP 123/85 02/07/24 12:05 Pulse Ox 95 02/07/24 12:05 FiO2 Intake & Output 02/06/24 02/07/24 02/07/24 18:59 06:59 18:59 Output Total 900 510 500 Balance -900 -510 -500 Weight 104.54 kg Output: Urine 900 510 500 Other: Voiding Method Indwelling Catheter Urinal - Labs CBC & Chem 7: 02/07/24 04:25 02/07/24 04:25 Labs: Abnormal Lab Results - Last 24 Hours (Table) 02/07/24 02/07/24 Range/Units 04:25 04:25 WBC 12.33 H (4.50-10.00) X 10*3/uL RBC 3.62 L (4.40-5.60) X 10*6/uL Hgb 9.6 L (13.0-17.0) g/dL Hct 30.5 L (39.6-50.0) % MCH 26.5 L (27.0-32.0) pg MCHC 31.5 L (32.0-37.0) g/dL Plt Count 447 H (140-440) X 10*3/uL MPV 9.2 L (9.5-12.2) FL Immature Gran # 0.08 H (0.00-0.04) X 10*3/uL Neutrophils # 10.46 H (1.80-7.70) X 10*3/uL Lymphocytes # 0.80 L (0.90-5.00) X 10*3/uL Eosinophils # 0.01 L (0.04-0.35) X 10*3/uL Glucose 142 H (70-110) mg/dL Calcium 8.2 L (8.7-10.3) mg/dL Microbiology - Last 24 Hours (Table) 02/05/24 15:00 Gram Stain - Preliminary Other - Other Wound Culture - Preliminary 02/03/24 00:01 Blood Culture - Preliminary Blood 02/02/24 23:45 Blood Culture - Preliminary Blood
--- NOTE | 2024-02-07 16:39 | P.PN ---
Subjective Progress Note Date: 02/07/24 Hospital course: Patient is a 33-year-old male with a history of Crohn's disease presented to the hospital on 02/02/2024 secondary to concerns of diarrhea, back pain, and fevers. To the hospital, patient underwent evaluation in the ER. Vital signs upon arrival show blood pressure 153/89, heart rate 113, respiratory rate 15, temp 99.3 F, and SpO2 of 97% on room air. Labs were completed and reviewed. CBC showed leukocytosis with WBC count of 18.2 and normocytic anemia with hemoglobin of 11.7. BMP was unremarkable. Lactate normal findings at 0.7. Liver profile normal findings. Urinalysis positive for 120 RBCs and protein otherwise negative for infection. Influenza A, influenza B, RSV, and COVID were all negative. KUB was completed reporting nonspecific bowel gas pattern without radiographic evidence for acute process. CT abdomen and pelvis completed revealing showing concerns for possible abscess with a new thick walled collection in the left lower quadrant measuring 8 x 4.3 cm also concerning of abscess and a hepatic lobe cyst measuring 2.1 cm. Patient was admitted under our services with consultation to general surgery team body art technician. On 02/05/2024 patient underwent drainage of intra-abdominal abscess with bowel resection by Dr. Gill. Physical exam: Patient was seen and fully evaluated at bedside this morning. He reports moderate postoperative pain only with movement and reports it is controlled at rest this morning. He was sitting up in the chair visiting with family at bedside. He denies experiencing any nausea or vomiting. He does report passing flatus but denies having bowel movement since surgical procedure was completed. Patient remains n.p.o. at this time pending advancement of diet by general surgery team. Vital signs reviewed and stable. General: Nontoxic, no distress and appears stated age. Derm: Skin warm and dry, normal coloration for ethnicity. Head: Atraumatic, normocephalic and symmetric. Eyes: EOMs intact, no lid lag, and anicteric sclera Mouth: no lip lesions, mucus membranes moist Cardiovascular: regular rate and rhythm with normal S1S2, no murmur, positive posterior tibial pulses bilaterally, and cap refill < 2 seconds. Lungs: Respirations even, regular, and unlabored on room air. Lungs CTA bilaterally, no rhonchi, no rales, no wheezing, and no accessory muscle usage. Abdominal: soft, no guarding. Postoperative dressing midline abdomen, clean, dry, and intact. Abdominal binder in place. Ext: ROM intact. No gross muscle atrophy, no edema, no contractures Neuro: Speech clear, face symmetrical and CN II-XII grossly intact with no noted focal neuro deficits Psych: Alert and oriented to person, place, time, and situation. Appropriate and pleasant affect. Assessment and Plan of Care: Sepsis secondary to abdominal abscess History of Crohn's disease Leukocytosis Normocytic anemia Thrombocytosis likely reactive -On 02/05/2024 patient underwent drainage of intra-abdominal abscess with bowel resection by Dr. Gill. -General surgery following, diet to be advanced as directed by general surgery team currently stating patient to remain n.p.o. -Gastroenterology following, reviewed documentation in chart -Continue Zosyn 3.375 g IV every 8 hours -Blood cultures negative growth to date -Pain control with oral Tylenol as needed for mild pain, IV Dilaudid 0.5 mg every 3 hours as needed for moderate pain, and 1 mg IVP as needed for severe pain. -Continue IV fluid hydration with D5.45 at 125 cc/h. -Wound Cultures pending Data and imaging reviewed: Morning labs reviewed. CBC showing leukocytosis with WBC count of 12.33, hemoglobin 9.6, and platelet count of 447. BMP unremarkable. Blood glucose 142. Morning labs reviewed. Blood pressure 127/75, heart rate 112, respiratory rate 16, temp 99.7 F, and SpO2 of 94% on room air. CODE STATUS: Full code DVT prophylaxis: Heparin Anticipated discharge date: Pending clinical course Anticipated discharge place: Pending clinical course Patient was seen independently by Nurse Pracitioner. This document was prepared using [employer] dictation software. Please allow for errors in confidential investigator, while rare they do occur. Objective - Vital Signs Vital signs: Vital Signs Temp 99.7 F H 02/07/24 07:16 Pulse 112 H 02/07/24 07:16 Resp 16 02/07/24 07:16 BP 127/75 02/07/24 07:16 Pulse Ox 94 L 02/07/24 07:16 FiO2 Intake & Output 02/06/24 02/07/24 02/07/24 18:59 06:59 18:59 Output Total 900 510 200 Balance -900 -510 -200 Output: Urine 900 510 200 Other: Voiding Method Indwelling Catheter Urinal - Labs CBC & Chem 7: 02/07/24 04:25 02/07/24 04:25 Labs: Abnormal Lab Results - Last 24 Hours (Table) 02/07/24 02/07/24 Range/Units 04:25 04:25 WBC 12.33 H (4.50-10.00) X 10*3/uL RBC 3.62 L (4.40-5.60) X 10*6/uL Hgb 9.6 L (13.0-17.0) g/dL Hct 30.5 L (39.6-50.0) % MCH 26.5 L (27.0-32.0) pg MCHC 31.5 L (32.0-37.0) g/dL Plt Count 447 H (140-440) X 10*3/uL MPV 9.2 L (9.5-12.2) FL Immature Gran # 0.08 H (0.00-0.04) X 10*3/uL Neutrophils # 10.46 H (1.80-7.70) X 10*3/uL Lymphocytes # 0.80 L (0.90-5.00) X 10*3/uL Eosinophils # 0.01 L (0.04-0.35) X 10*3/uL Glucose 142 H (70-110) mg/dL Calcium 8.2 L (8.7-10.3) mg/dL Microbiology - Last 24 Hours (Table) 02/05/24 15:00 Gram Stain - Preliminary Other - Other Wound Culture - Preliminary 02/03/24 00:01 Blood Culture - Preliminary Blood 02/02/24 23:45 Blood Culture - Preliminary Blood
[2024-02-08 09:38] LABS: Basophils # (A) 0.05 X 10*3/uL (0.00-0.10); Basophils % (A) 0.5 %; Eosinophils % (A) 1.1 %; HCT 29.6 % (39.6-50.0); HGB 9.1 g/dL (13.0-17.0); Lymphocytes # (A) 1.12 X 10*3/uL (0.90-5.00); Lymphocytes % (A) 11.9 %; MCH 26.6 pg (27.0-32.0); MCHC 30.7 g/dL (32.0-37.0); MCV 86.5 FL (80.0-97.0); Mean Platelet Volume 9.1 FL (9.5-12.2); Monocytes # (A) 1.25 X 10*3/uL (0.20-1.00); Monocytes % (A) 13.3 %; NRBC Per 100 WBC 0 X 10*3/uL (0.00-0.01); Neutrophils # (A) 6.81 X 10*3/uL (1.80-7.70); Neutrophils % (A) 72.2 %; Platelet Count 396 X 10*3/uL (140-440); RBC 3.42 X 10*6/uL (4.40-5.60); RDW 13.6 % (11.5-14.5); WBC 9.42 X 10*3/uL (4.50-10.00)
[2024-02-08 09:58] LABS: ALT 14 U/L (10-49); AST 13 U/L (14-35); Albumin 2.8 g/dL (3.8-4.9); Albumin/Globulin Ratio 0.88 Ratio (1.60-3.17); Alkaline Phosphatase 28 U/L (41-126); BUN/Creat Ratio 13.09 Ratio (12.00-20.00); Blood Urea Nitrogen 14.4 mg/dL (9.0-27.0); Calcium 8.1 mg/dL (8.7-10.3); Carbon Dioxide 29.2 mmol/L (21.6-31.8); Chloride 105 mmol/L (96-109); Globulin 3.2 g/dL (1.6-3.3); Glucose 114 mg/dL (70-110); Potassium 4.2 mmol/L (3.5-5.5); Sodium 143 mmol/L (135-145); Total Bilirubin <0.2 mg/dL (0.3-1.2)
--- NOTE | 2024-02-08 11:12 | P.PN ---
Progress Note - Text Progress Note Date: 02/08/24 CHIEF COMPLAINT: Abdominal pain HISTORY OF PRESENT ILLNESS: Patient is postop day #3 status post exploratory laparotomy, drainage of abscess and small bowel resection. Patient reports his pain is controlled. Denies any nausea or vomiting. Denies any bowel activity. Afebrile. PHYSICAL EXAM: VITAL SIGNS: Reviewed. GENERAL: Well-developed in no acute distress. ABDOMEN: Soft. mildly distended. Tenderness with palpation at incision site. Incisional dressing changed and clean dry and intact. NEUROLOGIC: Alert and oriented. Cranial nerves II through XII grossly intact. ASSESSMENT: 1. Crohn's disease 2. Abdominal abscess PLAN: -Keep patient n.p.o. -Continue pain management -Continue IV fluids -Continue antibiotics -Repeat labs in AM -Incentive spirometer ordered -Follow-up on culture results -GI prophylaxis Protonix and DVT prophylaxis subcu heparin
--- NOTE | 2024-02-08 13:57 | P.PN ---
Subjective Progress Note Date: 02/08/24 Hospital Course: Patient is a 33-year-old male with a history of Crohn's disease presented to the hospital on 02/02/2024 secondary to concerns of diarrhea, back pain, and fevers. To the hospital, patient underwent evaluation in the ER. Vital signs upon arrival show blood pressure 153/89, heart rate 113, respiratory rate 15, temp 99.3 F, and SpO2 of 97% on room air. Labs were completed and reviewed. CBC showed leukocytosis with WBC count of 18.2 and normocytic anemia with hemoglobin of 11.7. BMP was unremarkable. Lactate normal findings at 0.7. Liver profile normal findings. Urinalysis positive for 120 RBCs and protein otherwise negative for infection. Influenza A, influenza B, RSV, and COVID were all negative. KUB was completed reporting nonspecific bowel gas pattern without radiographic evidence for acute process. CT abdomen and pelvis completed revealing showing concerns for possible abscess with a new thick walled collection in the left lower quadrant measuring 8 x 4.3 cm also concerning of abscess and a hepatic lobe cyst measuring 2.1 cm. Patient was admitted under our services with consultation to general surgery team fig washer. On 02/05/2024 patient underwent drainage of intra-abdominal abscess with bowel resection by Dr. Gill. Subjective: Patient seen and examined at bedside. No acute events overnight. Still not passing any flatus or having any bowel movements. Able to urinate. Currently NPO. Pertinent positives and negatives as discussed above, a complete review of systems was performed and all other systems are negative. Vitals Signs Reviewed. General: Nontoxic, no distress, appears at stated age Derm: Warm, dry, dressing clean, dry, intact Head: Atraumatic, normocephalic, symmetric Eyes: EOMI, no lid lag, anicteric sclera Mouth: No lip lesion, mucus membranes moist Cardiovascular: S1S2 reg, no murmur Lungs: CTA bilateral, no rhonchi, no rales, no accessory muscle use Abdominal: Soft, nontender to palpation, no guarding, no appreciable organomegaly Ext: No gross muscle atrophy, no edema, no contractures Neuro: CN II-XI grossly intact, no focal neuro deficits Psych: Alert, oriented, appropriate affect Data Reviewed Today: Pertinent Labs: WBC 9.42, hemoglobin 9.1, creatinine 1.1, magnesium 2, glucose 114. Imaging: No new imaging. Assessment and Plan: Sepsis secondary to abdominal abscess status post bowel resection History of Crohn's disease Leukocytosis, resolved Normocytic anemia, secondary to acute illness Thrombocytosis likely reactive, resolved -On 02/05/2024 patient underwent drainage of intra-abdominal abscess with bowel resection by Dr. Gill. -General surgery note reviewed, keep patient n.p.o., maintain supportive care -Gastroenterology was consulted, recommended outpatient follow-up, Humira to be held. -Continue Zosyn 3.375 g IV every 8 hours -Blood cultures and abscess culture negative growth to date -Pain control with oral Tylenol as needed for mild pain, IV Dilaudid 0.5 mg ever y 3 hours as needed for moderate pain, and 1 mg IVP as needed for severe pain. -Continue IV fluid hydration with D5.45 at 125 cc/h. -Protonix 40 oral daily -Repeat CBC and BMP tomorrow DVT ppx: Subcu heparin Code status: Full code Anticipated discharge place: Pending clinical course Anticipated discharge time: Pending clinical course Objective - Vital Signs Vital signs: Vital Signs Temp 98.4 F 02/08/24 13:41 Pulse 99 02/08/24 13:41 Resp 16 02/08/24 13:41 BP 122/78 02/08/24 13:41 Pulse Ox 97 02/08/24 13:41 FiO2 Intake & Output 02/07/24 02/08/24 02/08/24 18:59 06:59 18:59 Intake Total 590 Output Total 700 400 250 Balance -700 190 -250 Weight 104.54 kg Intake: Oral 590 Output: Urine 700 400 250 Other: Voiding Method Toilet Toilet Urinal Urinal # Voids 1 - Labs CBC & Chem 7: 02/08/24 06:12 02/08/24 06:12 Labs: Abnormal Lab Results - Last 24 Hours (Table) 02/08/24 02/08/24 Range/Units 06:12 06:12 RBC 3.42 L (4.40-5.60) X 10*6/uL Hgb 9.1 L (13.0-17.0) g/dL Hct 29.6 L (39.6-50.0) % MCH 26.6 L (27.0-32.0) pg MCHC 30.7 L (32.0-37.0) g/dL MPV 9.1 L (9.5-12.2) FL Immature Gran # 0.09 H (0.00-0.04) X 10*3/uL Monocytes # 1.25 H (0.20-1.00) X 10*3/uL Glucose 114 H (70-110) mg/dL Calcium 8.1 L (8.7-10.3) mg/dL Total Bilirubin <0.2 L (0.3-1.2) mg/dL AST 13 L (14-35) U/L Alkaline Phosphatase 28 L (41-126) U/L Total Protein 6.0 L (6.2-8.2) g/dL Albumin 2.8 L (3.8-4.9) g/dL Albumin/Globulin Ratio 0.88 L (1.60-3.17) Ratio Microbiology - Last 24 Hours (Table) 02/03/24 00:01 Blood Culture - Final Blood 02/02/24 23:45 Blood Culture - Final Blood 02/05/24 15:00 Anaerobic Culture - Preliminary Other - Other 02/05/24 15:00 Gram Stain - Final Other - Other Wound Culture - Final
[2024-02-09 04:33] LABS: African American GFR (CKD) >90 (>60 ml/min/1.73 sqM); Anion Gap 8 mmol/L; Blood Urea Nitrogen 16 mg/dL (9-20); Calcium 7.8 mg/dL (8.4-10.2); Carbon Dioxide 26 mmol/L (22-30); Chloride 106 mmol/L (98-107); Glucose 102 mg/dL (74-99); Magnesium 1.8 mg/dL (1.6-2.3); Non-African American GFR(CKD) >90 (>60 ml/min/1.73 sqM); Potassium 3.5 mmol/L (3.5-5.1); Sodium 140 mmol/L (137-145)
[2024-02-09 04:38] LABS: Basophils % (A) 1 %; Eosinophils # (A) 0.2 k/uL (0-0.7); Eosinophils % (A) 3 %; HCT 27.7 % (39.0-53.0); Lymphocytes # (A) 0.9 k/uL (1.0-4.8); Lymphocytes % (A) 15 %; MCH 26.1 pg (25.0-35.0); MCHC 29.8 g/dL (31.0-37.0); MCV 87.4 fL (80.0-100.0); Mean Platelet Volume 7.2; Monocytes # (A) 0.5 k/uL (0-1.0); Monocytes % (A) 8 %; Neutrophils # (A) 4.3 k/uL (1.3-7.7); Neutrophils % (A) 70 %; Platelet Count 380 k/uL (150-450); RBC 3.17 m/uL (4.30-5.90); RDW 13.7 % (11.5-15.5); WBC 6.1 k/uL (3.8-10.6)
[2024-02-09 04:59] LABS: HGB 8.3 gm/dL (13.0-17.5)
--- NOTE | 2024-02-09 12:54 | P.PN ---
Subjective Progress Note Date: 02/09/24 Principal diagnosis: Crohn's disease 33-year-old male doing well today. He is ambulating. Was in the chair most of the morning. No flatus. Denies nausea or vomiting. He is thirsty. He is afebrile. White blood cell count normal. Objective - Vital Signs Vital signs: Vital Signs Temp 98 F 02/09/24 07:55 Pulse 88 02/09/24 07:55 Resp 18 02/09/24 07:55 BP 117/76 02/09/24 07:55 Pulse Ox 98 02/09/24 07:55 FiO2 Intake & Output 02/08/24 02/09/24 02/09/24 18:59 06:59 18:59 Output Total 550 400 Balance -550 -400 Output: Urine 550 400 Other: Voiding Method Toilet Toilet Toilet Urinal # Voids 1 - Exam Abdomen: Soft, mild tenderness, dressing clean and dry - Labs CBC & Chem 7: 02/09/24 03:25 02/09/24 03:25 Labs: Abnormal Lab Results - Last 24 Hours (Table) 02/09/24 02/09/24 Range/Units 03:25 03:25 RBC 3.17 L (4.30-5.90) m/uL Hgb 8.3 L D (13.0-17.5) gm/dL Hct 27.7 L (39.0-53.0) % MCHC 29.8 L (31.0-37.0) g/dL Lymphocytes # 0.9 L (1.0-4.8) k/uL Glucose 102 H (74-99) mg/dL Calcium 7.8 L (8.4-10.2) mg/dL Microbiology - Last 24 Hours (Table) 02/03/24 00:01 Blood Culture - Final Blood 02/02/24 23:45 Blood Culture - Final Blood 02/05/24 15:00 Anaerobic Culture - Preliminary Other - Other 02/05/24 15:00 Gram Stain - Final Other - Other Wound Culture - Final Assessment and Plan (1) Crohn's disease Narrative/Plan: 33-year-old male doing well after recent small bowel resection for Crohn's related abscess. He is postop day 5. Keep n.p.o. however may have ice chips. Ambulate. Current Visit: Yes Status: Acute Code(s): K50.90 - CROHN'S DISEASE, UNSPECIFIED, WITHOUT COMPLICATIONS SNOMED Code(s): 36036784
--- NOTE | 2024-02-09 13:31 | P.PN ---
Subjective Progress Note Date: 02/09/24 Hospital Course: Patient is a 33-year-old male with a history of Crohn's disease presented to the hospital on 02/02/2024 secondary to concerns of diarrhea, back pain, and fevers. To the hospital, patient underwent evaluation in the ER. Vital signs upon arrival show blood pressure 153/89, heart rate 113, respiratory rate 15, temp 99.3 F, and SpO2 of 97% on room air. Labs were completed and reviewed. CBC showed leukocytosis with WBC count of 18.2 and normocytic anemia with hemoglobin of 11.7. BMP was unremarkable. Lactate normal findings at 0.7. Liver profile normal findings. Urinalysis positive for 120 RBCs and protein otherwise negative for infection. Influenza A, influenza B, RSV, and COVID were all negative. KUB was completed reporting nonspecific bowel gas pattern without radiographic evidence for acute process. CT abdomen and pelvis completed revealing showing concerns for possible abscess with a new thick walled collection in the left lower quadrant measuring 8 x 4.3 cm also concerning of abscess and a hepatic lobe cyst measuring 2.1 cm. 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 On 02/05/2024 patient underwent drainage of intra-abdominal abscess with bowel resection by Dr. Gill. Subjective: Patient seen and examined at bedside. No acute events overnight. Still not passing any flatus or having any bowel movements. Able to urinate. Currently NPO. Pertinent positives and negatives as discussed above, a complete review of systems was performed and all other systems are negative. Vitals Signs Reviewed. General: Nontoxic, no distress, appears at stated age Derm: Warm, dry, dressing clean, dry, intact Head: Atraumatic, normocephalic, symmetric Eyes: EOMI, no lid lag, anicteric sclera Mouth: No lip lesion, mucus membranes moist Cardiovascular: S1S2 reg, no murmur Lungs: CTA bilateral, no rhonchi, no rales, no accessory muscle use Abdominal: Soft, nontender to palpation, no guarding, no appreciable organomegaly Ext: No gross muscle atrophy, no edema, no contractures Neuro: CN II-XI grossly intact, no focal neuro deficits Psych: Alert, oriented, appropriate affect Data Reviewed Today: Pertinent Labs: WBC 6.1, hemoglobin 8.3, platelets 380, potassium 3.5, creatinine 0.91, glucose 102, magnesium 1.8 Imaging: No new imaging. Assessment and Plan: abdominal abscess status post bowel resection Sepsis secondary to above, now resolved History of Crohn's disease Leukocytosis, resolved Normocytic anemia, secondary to acute illness Thrombocytosis likely reactive, resolved -On 02/05/2024 patient underwent drainage of intra-abdominal abscess with bowel resection by Dr. Gill. -General surgery note reviewed, keep patient n.p.o., maintain supportive care -Gastroenterology was consulted, recommended outpatient follow-up, Humira to be held. -Continue Zosyn 3.375 g IV every 8 hours -Blood cultures and abscess culture negative growth to date -Pain control with oral Tylenol as needed for mild pain, IV Dilaudid 0.5 mg every 3 hours as needed for moderate pain, and 1 mg IVP as needed for severe pain. -Continue IV fluid hydration with D5.45 at 125 cc/h. -Protonix 40 oral daily -Repeat CBC and BMP tomorrow DVT ppx: Subcu heparin Code status: Full code Anticipated discharge place: Pending clinical course Anticipated discharge time: Pending clinical course Objective - Vital Signs Vital signs: Vital Signs Temp 98.7 F 02/09/24 13:22 Pulse 87 02/09/24 13:22 Resp 19 02/09/24 13:22 BP 124/76 02/09/24 13:22 Pulse Ox 99 02/09/24 13:22 FiO2 Intake & Output 02/08/24 02/09/24 02/09/24 18:59 06:59 18:59 Output Total 550 400 Balance -550 -400 Output: Urine 550 400 Other: Voiding Method Toilet Toilet Toilet Urinal # Voids 1 - Labs CBC & Chem 7: 02/09/24 03:25 02/09/24 03:25 Labs: Abnormal Lab Results - Last 24 Hours (Table) 02/09/24 02/09/24 Range/Units 03:25 03:25 RBC 3.17 L (4.30-5.90) m/uL Hgb 8.3 L D (13.0-17.5) gm/dL Hct 27.7 L (39.0-53.0) % MCHC 29.8 L (31.0-37.0) g/dL Lymphocytes # 0.9 L (1.0-4.8) k/uL Glucose 102 H (74-99) mg/dL Calcium 7.8 L (8.4-10.2) mg/dL Microbiology - Last 24 Hours (Table) 02/03/24 00:01 Blood Culture - Final Blood 02/02/24 23:45 Blood Culture - Final Blood 02/05/24 15:00 Anaerobic Culture - Preliminary Other - Other
[2024-02-10 10:27] LABS: Basophils # (A) 0.03 X 10*3/uL (0.00-0.10); Basophils % (A) 0.5 %; Eosinophils # (A) 0.12 X 10*3/uL (0.04-0.35); Eosinophils % (A) 1.9 %; HCT 27.6 % (39.6-50.0); HGB 8.5 g/dL (13.0-17.0); Lymphocytes # (A) 1.08 X 10*3/uL (0.90-5.00); Lymphocytes % (A) 17.3 %; MCH 26.8 pg (27.0-32.0); MCHC 30.8 g/dL (32.0-37.0); MCV 87.1 FL (80.0-97.0); Mean Platelet Volume 9.2 FL (9.5-12.2); Monocytes # (A) 0.56 X 10*3/uL (0.20-1.00); Monocytes % (A) 8.9 %; NRBC Per 100 WBC 0 X 10*3/uL (0.00-0.01); Neutrophils % (A) 70.3 %; Platelet Count 437 X 10*3/uL (140-440); RBC 3.17 X 10*6/uL (4.40-5.60); RDW 13.5 % (11.5-14.5); WBC 6.26 X 10*3/uL (4.50-10.00)
[2024-02-10 10:36] LABS: Blood Urea Nitrogen 11.7 mg/dL (9.0-27.0); Glucose 105 mg/dL (70-110)
[2024-02-10 10:37] LABS: Calcium 8.3 mg/dL (8.7-10.3); Carbon Dioxide 27.3 mmol/L (21.6-31.8); Chloride 103 mmol/L (96-109); Magnesium 1.9 mg/dL (1.5-2.4); Potassium 3.8 mmol/L (3.5-5.5); Sodium 140 mmol/L (135-145)
--- NOTE | 2024-02-10 14:50 | P.PN ---
Subjective Progress Note Date: 02/10/24 CHIEF COMPLAINT: Abdominal pain HISTORY OF PRESENT ILLNESS: Patient is postop day #5 status post exploratory laparotomy, drainage of abscess and small bowel resection. Patient is sitting in bedside chair. His pain is controlled. He started having bowel movements this morning. Denies any nausea or vomiting. Afebrile. WBC 6.26 Hgb 8.5 platelets 437 wound culture shows no growth PHYSICAL EXAM: VITAL SIGNS: Reviewed. GENERAL: Well-developed in no acute distress. ABDOMEN: Soft. Nondistended. Incisional dressing clean dry and intact NEUROLOGIC: Alert and oriented. Cranial nerves II through XII grossly intact. ASSESSMENT: 1. Crohn's disease 2. Abdominal abscess PLAN: -Advance diet to clear liquids for lunch and then full liquids for dinner -[place] added for oral pain medication -Continue pain management -Discontinue IV fluids -Continue antibiotics -Encourage patient to ambulate -Encourage patient to use incentive -GI prophylaxis Protonix and DVT prophylaxis subcu heparin Physician Support Services Tech note has been reviewed by physician. Signing provider agrees with the documented findings, assessment, and plan of care. Objective - Vital Signs Vital signs: Vital Signs Temp 97.9 F 02/10/24 12:39 Pulse 78 02/10/24 12:39 Resp 16 02/10/24 12:39 BP 108/66 02/10/24 12:39 Pulse Ox 96 02/10/24 12:39 FiO2 Intake & Output 02/09/24 02/10/24 02/10/24 18:59 06:59 18:59 Output Total 1000 1700 350 Balance -1000 -1700 -350 Weight 104.54 kg Output: Urine 1000 1700 350 Other: Voiding Method Toilet Toilet Toilet - Labs CBC & Chem 7: 02/10/24 07:47 02/10/24 07:47 Labs: Abnormal Lab Results - Last 24 Hours (Table) 02/10/24 02/10/24 Range/Units 07:47 07:47 RBC 3.17 L (4.40-5.60) X 10*6/uL Hgb 8.5 L (13.0-17.0) g/dL Hct 27.6 L (39.6-50.0) % MCH 26.8 L (27.0-32.0) pg MCHC 30.8 L (32.0-37.0) g/dL MPV 9.2 L (9.5-12.2) FL Immature Gran # 0.07 H (0.00-0.04) X 10*3/uL Calcium 8.3 L (8.7-10.3) mg/dL Microbiology - Last 24 Hours (Table) 02/05/24 15:00 Anaerobic Culture - Final Other - Other
--- NOTE | 2024-02-10 15:24 | P.PN ---
Subjective Progress Note Date: 02/10/24 Hospital course: Patient is a 33-year-old male with a history of Crohn's disease presented to the hospital on 02/02/2024 secondary to concerns of diarrhea, back pain, and fevers. To the hospital, patient underwent evaluation in the ER. Vital signs upon arrival show blood pressure 153/89, heart rate 113, respiratory rate 15, temp 99.3 F, and SpO2 of 97% on room air. Labs were completed and reviewed. CBC showed leukocytosis with WBC count of 18.2 and normocytic anemia with hemoglobin of 11.7. BMP was unremarkable. Lactate normal findings at 0.7. Liver profile normal findings. Urinalysis positive for 120 RBCs and protein otherwise negative for infection. Influenza A, influenza B, RSV, and COVID were all negative. KUB was completed reporting nonspecific bowel gas pattern without radiographic evidence for acute process. CT abdomen and pelvis completed revealing showing concerns for possible abscess with a new thick walled collection in the left lower quadrant measuring 8 x 4.3 cm also concerning of abscess and a hepatic lobe cyst measuring 2.1 cm. 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 On 02/05/2024 patient underwent drainage of intra-abdominal abscess with bowel resection by Dr. Gill. Physical exam: Patient was seen and fully evaluated at bedside this morning. He was sitting up in the chair and reports having a good morning this morning. Patient reports passing flatus and having a bowel movement this morning. He reports bowel movement was soft and formed with no melena or hematochezia. Patient denies any nausea or vomiting. Currently expressing that he is hungry this morning. Vital signs reviewed and stable. General: Nontoxic, no distress and appears stated age. Derm: Skin warm and dry, normal coloration for ethnicity. Head: Atraumatic, normocephalic and symmetric. Eyes: EOMs intact, no lid lag, and anicteric sclera Mouth: no lip lesions, mucus membranes moist Cardiovascular: regular rate and rhythm with normal S1S2, no murmur, positive posterior tibial pulses bilaterally, and cap refill < 2 seconds. Lungs: Respirations even, regular, and unlabored on room air. Lungs CTA bilaterally, no rhonchi, no rales, no wheezing, and no accessory muscle usage. Abdominal: soft, no guarding. Postoperative dressing midline abdomen, clean, dry, and intact. Abdominal binder in place. Ext: ROM intact. No gross muscle atrophy, no edema, no contractures Neuro: Speech clear, face symmetrical and CN II-XII grossly intact with no noted focal neuro deficits Psych: Alert and oriented to person, place, time, and situation. Appropriate and pleasant affect. Assessment and Plan of Care: Abdominal abscess status post drainage of intra-abdominal abscess with bowel resection Sepsis upon arrival secondary to above History of Crohn's disease Normocytic anemia Leukocytosis resolved Thrombocytosis likely reactive. Resolved -On 02/05/2024 patient underwent drainage of intra-abdominal abscess with bowel resection by Dr. Gill. -General surgery following, diet to be advanced as directed by general surgery team currently stating patient to remain n.p.o. -Gastroenterology evaluated, reviewed documentation in chart. Gastroenterology is recommending holding Humira until patient is healed from abscess and surgery, will advise further upon outpatient follow-up in their office. -Continue Zosyn 3.375 g IV every 8 hours -Blood cultures negative -Wound culture/intra-abdominal abscess culture was negative -Pain control with oral Tylenol as needed for mild pain, IV Dilaudid 0.5 mg every 3 hours as needed for moderate pain, and 1 mg IVP as needed for severe pain. -Continue IV fluid hydration with D5.45 at 125 cc/h, recommending continuation of IV fluids once patient is tolerating clear liquid diet. Data and imaging reviewed: Wound culture showing no growth. Morning labs reviewed. CBC showing showing stable anemia with hemoglobin of 8.5. BMP unremarkable. Magnesium 1.9. Morning labs reviewed. Blood pressure 138/79, heart rate 74, respiratory rate 17, temp 98.3 F, and SpO2 of 98% on room air. CODE STATUS: Full code DVT prophylaxis: Heparin Anticipated discharge date: Pending clinical course Anticipated discharge place: Pending clinical course Patient was seen independently by Nurse Pracitioner. This document was prepared using [employer] dictation software. Please allow for errors in foxing closer, while rare they do occur. Mihir Lyon NP rendered care for this patient independently, reviewed the findings and plan as documented in the note above. I did not physically speak with or examine the patient on this date. Objective - Vital Signs Vital signs: Vital Signs Temp 98.3 F 02/10/24 07:44 Pulse 74 02/10/24 07:44 Resp 17 05/20/24 07:44 BP 138/79 02/10/24 07:44 Pulse Ox 98 02/10/24 07:44 FiO2 Intake & Output 02/09/24 02/10/24 02/10/24 18:59 06:59 18:59 Output Total 1000 1700 350 Balance -1000 -1700 -350 Output: Urine 1000 1700 350 Other: Voiding Method Toilet Toilet - Labs CBC & Chem 7: 02/10/24 07:47 02/10/24 07:47
[2024-02-11 02:59] VITALS: RESP 17
[2024-02-11] MEDS ORDERED: HYDROcodone/APAP 5-325MG 1 EACH TAB PO PRN (13:04)
[2024-02-11 15:23] VITALS: BP 127/72; PULSE 79; TEMP 98.6
[2024-02-11 15:35] LABS: HCT 25.5 % (39.6-50.0); MCH 27.3 pg (27.0-32.0); MCHC 31.4 g/dL (32.0-37.0); Mean Platelet Volume 9.5 FL (9.5-12.2); NRBC Per 100 WBC 0 X 10*3/uL (0.00-0.01); Platelet Count 415 X 10*3/uL (140-440); RBC 2.93 X 10*6/uL (4.40-5.60); RDW 13.4 % (11.5-14.5); WBC 6.02 X 10*3/uL (4.50-10.00)
--- NOTE | 2024-02-11 15:55 | P.PN ---
Subjective Progress Note Date: 02/11/24 CHIEF COMPLAINT: Abdominal pain HISTORY OF PRESENT ILLNESS: Patient is postop day #6 status post exploratory laparotomy, drainage of abscess and small bowel resection. Patient is sitting in bedside chair. His pain is controlled. He is having bowel movements. He is afebrile. PHYSICAL EXAM: VITAL SIGNS: Reviewed. GENERAL: Well-developed in no acute distress. ABDOMEN: Soft. Nondistended. Incision site clean dry and intact NEUROLOGIC: Alert and oriented. Cranial nerves II through XII grossly intact. ASSESSMENT: 1. Crohn's disease 2. Abdominal abscess PLAN: -Advance diet to regular -Patient can be discharged from surgical standpoint -Recommend Levaquin for 10 more days at discharge -GI prophylaxis Protonix and DVT prophylaxis subcu heparin Physician Marketing Reporting Analyst note has been reviewed by physician. Signing provider agrees with the documented findings, assessment, and plan of care. Objective - Vital Signs Vital signs: Vital Signs Temp 98.3 F 02/11/24 07:12 Pulse 71 02/11/24 07:12 Resp 17 02/11/24 07:12 BP 127/76 02/11/24 07:12 Pulse Ox 98 02/11/24 07:12 FiO2 Intake & Output 02/10/24 02/11/24 02/11/24 18:59 06:59 18:59 Output Total 350 Balance -350 Weight 104.54 kg Output: Urine 350 Other: Voiding Method Toilet Toilet # Voids 1 - Labs CBC & Chem 7: 02/11/24 07:21 02/10/24 07:47 Labs: Microbiology - Last 24 Hours (Table) 02/05/24 15:00 Anaerobic Culture - Final Other - Other
--- NOTE | 2024-02-11 16:19 | P.DS ---
Providers Date of admission: 02/03/24 00:41 Expected date of discharge: 02/11/24 Attending physician: Fior Gupta MD Consults: 02/03/24 00:42 Consult Physician Routine Consulting Provider: Ramon Gill Consult Reason/Comments: Intra-abdominal abscess Do you want consulting provider notified?: Yes 02/03/24 13:34 Consult Physician Routine Consulting Provider: Marni Finch Consult Reason/Comments: known to you, crohn's disease Do you want consulting provider notified?: Yes Primary care physician: Raj Jimenez Hospital Course: Discharge Diagnosis: Abdominal abscess status post drainage of intra-abdominal abscess with bowel resection. Patient underwent drainage of intra-abdominal abscess with bowel resection on 02/05/2024. He received 8-day course of IV antibiotics with Zosyn during hospitalization. Patient had full return of bowel function and diet was slowly increased. Patient tolerating without any difficulties. Patient cleared from general surgery perspective, general surgeon discharging patient home on an additional 10-day course of oral antibiotics with Levaquin. Patient to follow- up outpatient with PCP in 1 to 2 days and with general surgery in 1 week. Sepsis upon arrival secondary to above. History of Crohn's disease. Normocytic anemia. Leukocytosis resolved. Thrombocytosis likely reactive. Resolved. Hospital course: Patient is a 33-year-old male with a history of Crohn's disease presented to the hospital on 02/02/2024 secondary to concerns of diarrhea, back pain, and fevers. To the hospital, patient underwent evaluation in the ER. Vital signs upon arrival show blood pressure 153/89, heart rate 113, respiratory rate 15, temp 99.3 F, and SpO2 of 97% on room air. Labs were completed and reviewed. CBC showed leukocytosis with WBC count of 18.2 and normocytic anemia with hemoglobin of 11.7. BMP was unremarkable. Lactate normal findings at 0.7. Liver profile normal findings. Urinalysis positive for 120 RBCs and protein otherwise negative for infection. Influenza A, influenza B, RSV, and COVID were all negative. KUB was completed reporting nonspecific bowel gas pattern without radiographic evidence for acute process. CT abdomen and pelvis completed revealing showing concerns for possible abscess with a new thick walled collection in the left lower quadrant measuring 8 x 4.3 cm also concerning of abscess and a hepatic lobe cyst measuring 2.1 cm. Patient was admitted under our services with consultation to general surgery team baker operator automatic. On 02/05/2024 patient underwent drainage of intra-abdominal abscess with bowel resection by Dr. Gill. Blood cultures negative. Wound cultures of intra- abdominal abscess were negative. Patient received 8-day course of IV antibiotics with Zosyn during hospitalization. Patient had full return of bowel function and diet was slowly increased. Patient tolerating without any difficulties. Patient cleared from general surgery perspective, general surgeon discharging patient home on an additional 10-day course of oral antibiotics with Levaquin. Patient to follow-up outpatient with PCP in 1 to 2 days and with general surgery in 1 week. Physical exam: Vital signs reviewed and stable. General: Nontoxic, no distress and appears stated age. Derm: Skin warm and dry, normal coloration for ethnicity. Head: Atraumatic, normocephalic and symmetric. Eyes: EOMs intact, no lid lag, and anicteric sclera Mouth: no lip lesions, mucus membranes moist Cardiovascular: regular rate and rhythm with normal S1S2, no murmur, positive posterior tibial pulses bilaterally, and cap refill < 2 seconds. Lungs: Respirations even, regular, and unlabored on room air. Lungs CTA bilaterally, no rhonchi, no rales, no wheezing, and no accessory muscle usage. Abdominal: soft, no guarding. Postoperative dressing midline abdomen, clean, dry, and intact. Abdominal binder in place. Ext: ROM intact. No gross muscle atrophy, no edema, no contractures Neuro: Speech clear, face symmetrical and CN II-XII grossly intact with no noted focal neuro deficits Psych: Alert and oriented to person, place, time, and situation. Appropriate and pleasant affect. A total of 31 minutes of time were spent preparing this complex discharge summary. Pt was discharged on 02/11/2024 at 4:04 PM. Patient was seen independently by Nurse Practitioner. This document was prepared using [employer] dictation software. Please allow for errors in weather teacher while rare they do occur. Mihir Lyon NP rendered care for this patient independently, reviewed the findings and plan as documented in the note above. I did not physically speak with or examine the patient on this date. Patient Condition at Discharge: Stable Plan - Discharge Summary Discharge Rx Participant: Yes New Discharge Prescriptions: New HYDROcodone/APAP 5-325MG [Onward 5-325] 1 tab PO Q6HR PRN 3 Days #10 tab PRN Reason: Pain Ibuprofen [Motrin] 600 mg PO Q8HR PRN #30 tab PRN Reason: Pain Levofloxacin [Levaquin] 500 mg PO DAILY 10 Days #10 tab Pantoprazole [Protonix] 40 mg PO AC-BRKFST 30 Days #30 tab Continue Loratadine [Claritin] 10 mg PO DAILY No Action Hyrimoz (Pf) Pen 40mg/0.4ml 40 mg SQ Q14D Discharge Medication List Loratadine [Claritin] 10 mg PO DAILY 02/18/19 [History] Hyrimoz (Pf) Pen 40mg/0.4ml 40 mg SQ Q14D 02/03/24 [History] HYDROcodone/APAP 5-325MG [Onward 5-325] 1 tab PO Q6HR PRN 3 Days #10 tab 02/11/24 [Rx] Ibuprofen [Motrin] 600 mg PO Q8HR PRN #30 tab 02/11/24 [Rx] Levofloxacin [Levaquin] 500 mg PO DAILY 10 Days #10 tab 02/11/24 [Rx] Pantoprazole [Protonix] 40 mg PO AC-BRKFST 30 Days #30 tab 02/11/24 [Rx] Follow up Appointment(s)/Referral(s): Raj Jimenez MD [Primary Care Provider] - 1-2 days Ramon Gill MD [STAFF PHYSICIAN] - 1 Week Patient Instructions/Handouts: Hydrocodone/Acetaminophen (By mouth), Ibuprofen (By mouth), Levofloxacin (By mouth), Pantoprazole (By mouth), Crohn Disease (DC), Bowel Resection (DC) Activity/Diet/Wound Care/Special Instructions: Activity: No heavy lifting until follow-up with general surgeon and further recommendations/clearance advance activity at that time. No soaking in tub baths or swimming, may shower only until further cleared to advance activity by general surgeon at follow-up appointment. Diet: Low-fat diet Special Instructions: Take all of your medications as directed and remember to keep all of your doctor's appointments and follow-up as needed. Thank you for allowing us to participate in your care, it was truly a pleasure having you for our patient!!! . Discharge Disposition: HOME SELF-CARE
== END 2024-02-11 16:54 | disposition home or self-care (01) | DRG 853 ==
LOC: EC 18:12 → 3SCARD 02-03 00:41 → 5NMEDONC 02-03 10:52
PROVIDERS: ADMIT Internal Medicine; ATTEND Internal Medicine
PROC: 0DB80ZZ Excision of Small Intestine, Open Approach (ICD-10-PCS; principal; 2024-02-05 08:30)
PROC: 0W9G0ZX Drainage of Peritoneal Cavity, Open Approach, Diagnostic (ICD-10-PCS; principal; 2024-02-05 08:30)
DX: A41.9 Sepsis, unspecified organism (principal); K65.1 Peritoneal abscess; K50.014 Crohn's disease of small intestine with abscess; R18.8 Other ascites; E87.8 Other disorders of electrolyte and fluid balance, not elsewhere classified; D64.9 Anemia, unspecified; D75.839 Thrombocytosis, unspecified; R31.29 Other microscopic hematuria; M54.50 Low back pain, unspecified; Z79.899 Other long term (current) drug therapy
CPT/HCPCS: 36415; 64488; 74018; 74177; 80048; 80053; 81001; 83605; 83735; 85025; 85027; 87040; 87070; 87075; 87205; 87636; 88309; 94760; 96361; 96372; 96374; 96376; 99285

== ENCOUNTER → 2024-03-09 | Outpatient (CLI) | payer OTHER ==
[2024-03-09 10:24] LABS: Basophils # (A) 0.1 k/uL (0-0.2); Basophils % (A) 1 %; Eosinophils # (A) 0.1 k/uL (0-0.7); Eosinophils % (A) 2 %; HCT 33.1 % (39.0-53.0); HGB 10.4 gm/dL (13.0-17.5); Hypochromasia Slight; Lymphocytes # (A) 1.5 k/uL (1.0-4.8); Lymphocytes % (A) 18 %; MCH 27.2 pg (25.0-35.0); MCHC 31.3 g/dL (31.0-37.0); MCV 86.8 fL (80.0-100.0); Mean Platelet Volume 7.9; Monocytes # (A) 0.5 k/uL (0-1.0); Monocytes % (A) 6 %; Neutrophils # (A) 5.8 k/uL (1.3-7.7); Neutrophils % (A) 71 %; Platelet Count 320 k/uL (150-450); RBC 3.82 m/uL (4.30-5.90); RDW 15.2 % (11.5-15.5); WBC 8.1 k/uL (3.8-10.6)
[2024-03-09 10:27] LABS: INR 0.9 (<1.2); Prothrombin Time 10.5 sec (10.0-12.5)
[2024-03-09 10:30] LABS: African American GFR (CKD) >90 (>60 ml/min/1.73 sqM); Anion Gap 7 mmol/L; Blood Urea Nitrogen 16 mg/dL (9-20); Carbon Dioxide 29 mmol/L (22-30); Chloride 106 mmol/L (98-107); Non-African American GFR(CKD) >90 (>60 ml/min/1.73 sqM); Potassium 4.1 mmol/L (3.5-5.1); Sodium 142 mmol/L (137-145)
== END | disposition home or self-care (01) ==
LOC: LABWHC1 09:46
PROVIDERS: ATTEND Nurse Practitioner Acute Care
DX: N17.9 Acute kidney failure, unspecified (principal)
CPT/HCPCS: 36415; 80051; 82565; 84520; 85025; 85610; 85730; 86850; 86900; 86901

== ENCOUNTER 2024-03-11 07:43 | Day surgery (SDC) | payer OTHER ==
[2024-03-11] MEDS: ALPRAZolam 0.5 MG TAB PO PRN (08:55)
[2024-03-11] MEDS: DESMOPRESSIN ACETATE 28 MCG in SODIUM CHLORIDE 0.9% 50 ML IVPB ONE (09:18)
[2024-03-11 09:30] VITALS: TEMP 97.6
[2024-03-11] MEDS: HYDROmorphone 0.5 MG/0.5 ML SYRINGE IVP PRN (10:23)
[2024-03-11] MEDS ORDERED: HYDROcodone/APAP 5-325MG 1 EACH TAB PO PRN (10:48)
--- NOTE | 2024-03-11 11:24 | CT ---
EXAMINATION TYPE: CT biopsy renal LT DATE OF EXAM: 03/11/2024 10:51 AM CLINICAL INDICATION:Male, 33 years old with history of N17.9 ACUTE KIDNEY FAILURE, UNSPECIFIED; left kidney bx COMPARISON: CT 02/02/2024. CT DLP: 1782 mGycm, Automated exposure control for dose reduction was used. Contrast used: mL of , none Oral contrast used: none ATTENDING: Dr. Edgard Nogueira TECHNIQUE: CT guided percutaneous biopsy of using coaxial method. One or more CT dose reduction strategies were utilized during this examination. Total CT dose 1782 mGycm. FINDINGS: The procedure was explained to the patient including risks of bleeding, bruising, infection, damage t o nearby organs and need for additional therapy including potential surgery. All questions were answ ered and consent was obtained. The previous studies were reviewed. The patient was placed on the CT couch in the prone position Th e overlying skin was marked and prepped using sterile method. Timeout was taken per protocol. Followi ng administration of local anesthesia a 19 gauge coaxial needle was introduced on the kidney. The co axial needle tip was directed into the left kidney cortex with CT guidance. Multiple 20 gauge coaxia l biopsies were then obtained. Following the procedure the needle was removed and sterile dressing was applied to the percutaneous site. Post biopsy imaging demonstrated no evidence of March. Patien t was taken for postprocedure observation in stable condition. IMPRESSIONS: Status post percutaneous left kidney cortex biopsy as described above. Pathology results pending.
[2024-03-11 12:06] VITALS: RESP 16
[2024-03-11 14:47] VITALS: BP 129/61; PULSE 68
== END 2024-03-11 14:52 ==
LOC: RADPROMAIN 07:43
PROVIDERS: ATTEND Internal Medicine
DX: N17.9 Acute kidney failure, unspecified (principal)
CPT/HCPCS: 36415; 50200; 77012; J2597; J1170

== ENCOUNTER → 2024-08-06 | Outpatient (CLI) | payer OTHER ==
[2024-08-06 10:24] LABS: Basophils # (A) 0.05 X 10*3/uL (0.00-0.10); Basophils % (A) 0.8 %; Eosinophils # (A) 0.07 X 10*3/uL (0.04-0.35); Eosinophils % (A) 1.1 %; HCT 36.5 % (39.6-50.0); HGB 12.1 g/dL (13.0-17.0); Lymphocytes # (A) 1.31 X 10*3/uL (0.90-5.00); MCH 29.2 pg (27.0-32.0); MCHC 33.2 g/dL (32.0-37.0); MCV 88.2 FL (80.0-97.0); Mean Platelet Volume 9.3 FL (9.5-12.2); Monocytes % (A) 9.2 %; NRBC Per 100 WBC 0 X 10*3/uL (0.00-0.01); Neutrophils # (A) 4.48 X 10*3/uL (1.80-7.70); Neutrophils % (A) 68.4 %; Platelet Count 283 X 10*3/uL (140-440); RBC 4.14 X 10*6/uL (4.40-5.60); RDW 12.9 % (11.5-14.5); WBC 6.54 X 10*3/uL (4.50-10.00)
[2024-08-06 10:34] LABS: ALT 22 U/L (10-49); AST 23 U/L (14-35); Albumin 4.1 g/dL (3.8-4.9); Albumin/Globulin Ratio 1.24 Ratio (1.60-3.17); Alkaline Phosphatase 61 U/L (41-126); BUN/Creat Ratio 21.11 Ratio (12.00-20.00); Calcium 9.1 mg/dL (8.7-10.3); Carbon Dioxide 26.8 mmol/L (21.6-31.8); Chloride 106 mmol/L (96-109); Globulin 3.3 g/dL (1.6-3.3); Glucose 100 mg/dL (70-110); Potassium 4.5 mmol/L (3.5-5.5); Sodium 141 mmol/L (135-145); Total Bilirubin 0.4 mg/dL (0.3-1.2); Total Protein 7.4 g/dL (6.2-8.2)
[2024-08-06 11:40] LABS: Erythrocyte Sedimentation Rate 24 mm/Hr (0-15)
== END | disposition home or self-care (01) ==
LOC: LABWHC1 07:22
PROVIDERS: ATTEND Internal Medicine Gastroenterology
DX: K50.90 Crohn's disease, unspecified, without complications (principal)
CPT/HCPCS: 36415; 80053; 85025; 85652; 86140

== ENCOUNTER → 2025-02-10 | Outpatient (CLI) | payer OTHER ==
[2025-02-10 15:48] LABS: HCT 40.1 % (39.6-50.0); HGB 13.3 g/dL (13.0-17.0); MCH 29.6 pg (27.0-32.0); MCHC 33.2 g/dL (32.0-37.0); MCV 89.3 FL (80.0-97.0); Mean Platelet Volume 9.9 FL (9.5-12.2); NRBC Per 100 WBC 0 X 10*3/uL (0.00-0.01); Platelet Count 293 X 10*3/uL (140-440); RBC 4.49 X 10*6/uL (4.40-5.60); RDW 12.6 % (11.5-14.5); WBC 6.73 X 10*3/uL (4.50-10.00)
[2025-02-10 15:56] LABS: ALT 25 U/L (10-49); AST 26 U/L (14-35); Albumin 4.2 g/dL (3.8-4.9); Albumin/Globulin Ratio 1.35 Ratio (1.60-3.17); Alkaline Phosphatase 73 U/L (41-126); Blood Urea Nitrogen 16.2 mg/dL (9.0-27.0); Calcium 9.2 mg/dL (8.7-10.3); Chloride 104 mmol/L (96-109); Globulin 3.1 g/dL (1.6-3.3); Glucose 88 mg/dL (70-110); Potassium 4.2 mmol/L (3.5-5.5); Sodium 139 mmol/L (135-145); Total Bilirubin 0.4 mg/dL (0.3-1.2); Total Protein 7.3 g/dL (6.2-8.2)
== END | disposition home or self-care (01) ==
LOC: LABWHC1 11:09
PROVIDERS: ATTEND Nurse Practitioner Family
DX: K50.90 Crohn's disease, unspecified, without complications (principal)
CPT/HCPCS: 36415; 80053; 85027

== ENCOUNTER 2025-04-23 12:29 | Day surgery (SDC) | payer OTHER ==
[2025-04-23] MEDS: LACTATED RINGERS 1,000 ML IV SCH (13:48)
[2025-04-23 13:52] VITALS: RESP 16; TEMP 97.3
[2025-04-23] MEDS: IV FLUID CONTINUATION 1,000 ML IV ONE (13:55)
[2025-04-23] MEDS ORDERED: PROPOFOL 10 MG/ML 20 ML VIAL IV ONE (14:21)
[2025-04-23 15:06] VITALS: BP 121/65; PULSE 63
--- NOTE | 2025-04-23 15:17 | P.PCN ---
Date of Procedure: 04/23/25 Procedure(s) Performed: BRIEF HISTORY: Patient is a 34-year-old pleasant white male scheduled for an elective colonoscopy as a part of screening for longstanding history of Crohn's disease. Presently maintained on Stelara injections every 8 weeks. He is status post small bowel resection with drainage of pelvic abscess 1 year ago and doing well. PROCEDURE PERFORMED: Colonoscopy with biopsy. PREOPERATIVE DIAGNOSIS: Longstanding history of Crohn's disease. IV sedation per Anesthesia. PROCEDURE: After informed consent was obtained, the patient, was brought into the endoscopy unit. IV sedation was administered by Anesthesia under continuous monitoring. Digital rectal examination was normal. Initially the Olympus CF-160 flexible video colonoscope was then inserted in the rectum, gradually advanced into the cecum without any difficulty. Careful examination was performed as the scope was gradually being withdrawn. Ileocecal valve and the appendiceal orifice were visualized and appeared normal. Prep was excellent. Mucosa of the cecum, ascending colon, transverse colon, descending colon, sigmoid colon, and rectum appeared normal. Retroflexion was performed in the rectum and no lesions were seen. The patient tolerated the procedure well. IMPRESSION: Normal-appearing colon from rectum to cecum with no evidence of active colitis or colorectal neoplasia Scattered pseudopolyps in the sigmoid colon at 30 cm from anal verge status post biopsy. RECOMMENDATIONS: Findings of this examination were discussed with the patient as well as his family. He was advised to follow-up with the biopsy results. Continue with Stelara injections every 8 weeks. Repeat colonoscopy in 5 years..
== END 2025-04-23 15:26 | disposition home or self-care (01) ==
LOC: ORWHC2ENDO 12:29
PROVIDERS: ATTEND Internal Medicine Gastroenterology
DX: K50.90 Crohn's disease, unspecified, without complications
CPT/HCPCS: 45380; 88305